=== PATIENT | male | born 1950 | race Caucasian/White ===

== ENCOUNTER 2020-04-26 11:45 | Outpatient (CLI) | payer OTHER, SELFPAY ==
--- NOTE | ~2020-04-26 | CT_ITS ---
EXAMINATION: CT lung screening DATE: 04/26/2020 11:59 INDICATION: Personal history of tobacco dependence, current smoker with 30 pack year history TECHNIQUE: Computed tomography (CT) of the chest was performed without intravenous contrast. The dose -length product (DLP) was 59.66 mGy-cm. Automated exposure control and iterative reconstruction techn [employer] were employed. COMPARISON: 04/22/2018 FINDINGS: The lungs are free of acute opacities. Calcified pulmonary nodules and calcified bilateral hilar and mediastinal lymph nodes are consistent with old granulomatous disease. There is moderate em physema. Stable scarring is noted in the right lower lobe. There are no suspicious pulmonary nodules. There is no pleural effusion or pneumothorax. Calcified coronary artery atherosclerosis is noted. No pathologically enlarged thoracic lymph nodes are identified. The heart size is normal. There is mode rate thoracic spondylosis. IMPRESSION: 1. Lung-RADS category 2: Benign appearance or behavior. Continue annual screening with noncontrast lo w-dose chest CT in 12 months. Reviewed, dictated and finalized at location A. IMPRESSION: 1. Lung-RADS category 2: Benign appearance or behavior. Continue annual screeni ng with noncontrast low-dose chest CT in 12 months.
== END 2020-04-26 11:46 ==
LOC: MICIMG 11:46
PROVIDERS: PCP Family Medicine; Visit Provider Family Medicine
DX: Z87.891 Personal history of nicotine dependence (principal)
CPT/HCPCS: G0297

== ENCOUNTER 2021-01-06 10:56 | Outpatient (CLI) | payer OTHER, SELFPAY | END 2021-01-06 10:57 | disposition home or self-care (01) | LOC: ANHCOVIDVC 10:56 | PROVIDERS: PCP Family Medicine | DX: Z23 Encounter for immunization (principal) | CPT/HCPCS: 0001A; 91300 ==

== ENCOUNTER 2021-01-27 11:01 | Outpatient (CLI) | payer OTHER, SELFPAY | END 2021-01-27 11:02 | disposition home or self-care (01) | LOC: ANHCOVIDVC 11:02 | PROVIDERS: PCP Family Medicine | DX: Z23 Encounter for immunization (principal) | CPT/HCPCS: 0002A; 91300 ==

== ENCOUNTER → 2021-08-22 11:34 | Outpatient (CLI) | payer MEDICARE, OTHER, SELFPAY ==
--- NOTE | ~2021-08-22 | CT_ITS ---
EXAMINATION: CT lung screening DATE: 08/22/2021 11:56 INDICATION: Personal history of nicotine dependence TECHNIQUE: Computed tomography (CT) of the chest was performed without intravenous contrast. The dose -length product was 115.64 mGy-cm. Automated exposure control and iterative reconstruction technique were employed. COMPARISON: CT dated 04/26/2020 FINDINGS: No thoracic lymphadenopathy. There is atherosclerosis of the aorta and coronary arteries. H eart size normal. No significant pleural or pericardial effusion. There are scattered calcified granu bety of the lung parenchyma. Severe emphysema. There is right lower lobe atelectasis/scarring no acu te osseous abnormality. Mild thoracic spondylosis with accentuated kyphosis. No new pulmonary nodules or masses. There are calcified granulomas of the spleen.. IMPRESSION: 1. Lung-RADS category 1: Negative. Continue annual screening with noncontrast low-dose chest CT in 12 months. Reviewed, dictated and finalized at location B. MAKER IMPRESSION: 1. Lung-RADS category 1: Negative. Continue annual screening with noncontrast l ow-dose chest CT in 12 months.
== END ==
PROVIDERS: PCP Family Medicine; Visit Provider Family Medicine
DX: Z12.2 Encounter for screening for malignant neoplasm of respiratory organs (principal); Z87.891 Personal history of nicotine dependence
CPT/HCPCS: 71271

== ENCOUNTER 2021-12-29 10:10 | Outpatient (CLI) | payer MEDICARE, OTHER, SELFPAY ==
--- NOTE | ~2021-12-29 | US_ITS ---
EXAMINATION: US carotid duplex BI DATE: 12/29/2021 11:06 INDICATION: Dizziness TECHNIQUE: Grayscale, color Doppler, and pulsed Doppler images of the cervical carotid arteries were obtained. The degree of vessel stenosis is placed in one of the following categories: normal, <50%, 5 0-69%, >=70% but less than near-occlusion, near-occlusion, or total occlusion. Note that percent sten osis relative to normal distal artery lumen diameter is indirectly measured from velocity measurement s as described by Irineo, et al. Radiology 2003; 229:340-346. Notes: Normal: Peak systolic velocity <125 centimeters/sec and no plaque <50%. Peak systolic velocity <125 ( EDV <40; ICA/CCA PSV ratio <2.0; used these factors only a tandem lesions or low cardiac output or co ntralateral disease) 50-69 %: PSV 125-230 (EDV 40-100; ratio 2-4) >= 70% but less than near occlusion: PSV greater than 230 (EDV > 100; ratio> 4.0) Near Occlusion: PSV that is variable; markedly narrowed lumen Occlusion: Absent flow on color/spectral Doppler and no lumen on root scale. COMPARISON: None. FINDINGS: RIGHT: The right common carotid artery (CCA) peak systolic velocity (PSV) is 74 cm/s. The right internal car otid artery (ICA) PSV is 66 cm/s. The right ICA end-diastolic velocity (EDV) is 26 cm/s. The right IC A/CCA PSV ratio is 0.9. The external carotid artery (ECA) PSV is 88 cm/s. There is antegrade flow in the right vertebral artery. LEFT: The left CCA PSV is 85 cm/s. The left ICA PSV is 81 cm/s. The left ICA EDV is 32 cm/s. The left ICA/C CA PSV ratio is 0.95. The ECA PSV is 75 cm/s. There is antegrade flow in the left vertebral artery. IMPRESSION: 1. Less than 50% stenosis in the right internal carotid artery by sonographic criteria. 2. Less than 50% stenosis in the left internal carotid artery by sonographic criteria. Reviewed, dictated and finalized at location A. IMPRESSION: 1. Less than 50% stenosis in the right internal carotid artery by sonographic nito cerrato. 2. Less than 50% stenosis in the left internal carotid artery by sonographic melly alas.
--- NOTE | ~2021-12-29 | CT_ITS ---
EXAMINATION: CT brain wo con EXAM DATE: 12/29/2021 10:35 INDICATION: R42 - Dizziness and giddiness TECHNIQUE: Spiral CT of the head was performed without contrast. Axial, coronal and sagittal images were reviewed. The dose-length product (DLP) for this examination was 681.00 mGy-cm. The exposure w as tailored according to patient size, and iterative reconstruction (ASIR) was used as additional dos e reduction technique. Comparison is made to prior examination from 08/16/2012. FINDINGS: There is no acute intraparenchymal hemorrhage. No evidence of intraparenchymal brain mass lesion. No evidence of acute infarction. Please note that initial head CT has limited sensitivity f or small or acute infarctions. There is moderate to severe periventricular and subcortical hypodensit y, nonspecific but probably related to small vessel ischemic disease. There is mild to moderate pro minence of the sulci and ventricles related to cerebral atrophy. There is intracranial carotid marco riosclerosis. There are no extra-axial collections. There is no mass effect or midline shift. The orbits are unremarkable. Soft tissue is unremarkable. Nearly completely opacified left maxillary si nus with mucoperiosteal thickening and air-fluid level. IMPRESSION: 1. No acute intracranial findings. 2. Chronic age related findings. Reviewed, dictated and finalized at location A.
== END 2021-12-29 10:11 | disposition home or self-care (01) ==
PROVIDERS: PCP Family Medicine; Visit Provider Family Medicine
DX: R42 Dizziness and giddiness (principal); I65.23 Occlusion and stenosis of bilateral carotid arteries
CPT/HCPCS: 70450; 93880

== ENCOUNTER → 2022-09-04 11:50 | Outpatient (CLI) | payer MEDICARE, OTHER, SELFPAY ==
--- NOTE | ~2022-09-04 | CT_ITS ---
EXAMINATION: CT lung screening DATE: 09/04/2022 12:04 INDICATION: Personal history of nicotine dependence, current smoker with 30 pack year history TECHNIQUE: Computed tomography (CT) of the chest was performed without intravenous contrast. The dose -length product (DLP) was 68.50 mGy-cm. Automated exposure control and iterative reconstruction techn [employer] were employed. COMPARISON: 08/22/2021 FINDINGS: There is moderate emphysema. Calcified pulmonary nodules and calcified bilateral hilar and mediastinal lymph nodes are consistent with old granulomatous disease. The lungs are free of acute op acities. There is mild chronic subsegmental atelectasis of the lingula and lower lobes. No pathologic ally enlarged thoracic lymph nodes are identified. The heart size is normal. Calcified coronary arter y atherosclerosis is noted. IMPRESSION: 1. Lung-RADS category 1: Negative. Continue annual screening with noncontrast low-dose chest CT in 12 months. Reviewed, dictated and finalized at location A. ACTORY REPAIRER IMPRESSION: 1. Lung-RADS category 1: Negative. Continue annual screening with noncontrast l ow-dose chest CT in 12 months.
== END ==
PROVIDERS: PCP Family Medicine; Visit Provider Physician Assistant
DX: Z12.2 Encounter for screening for malignant neoplasm of respiratory organs (principal); F17.210 Nicotine dependence, cigarettes, uncomplicated
CPT/HCPCS: 71271

== ENCOUNTER 2023-09-06 10:08 | Outpatient (CLI) | payer MEDICARE, OTHER, SELFPAY ==
--- NOTE | ~2023-09-06 | CT_ITS ---
CT Scan of the Chest without Contrast: Clinical Indication: Lung cancer screening, personal history of nicotine dependence Technique: Contiguous sections were acquired throughout the chest without intravenous contrast. Dose reduction technique was used on this scan by utilizing automated exposure control and iterative recon struction technique. The dose-length product (DLP) was 82.48 mGy-cm. COMPARISON: 09/04/2022 Findings: There is no evidence of any significant mediastinal, hilar or axillary lymphadenopathy. Calcified med iastinal lymph nodes are present. Atherosclerotic calcifications of the aorta and coronary arteries a re present. There is no evidence of pleural or pericardial effusion. There is moderate emphysema. There are calcified granulomas. Images through the upper abdomen reveal no abnormalities. Impression: Lung RADS 2: Benign appearance. 12 month follow-up screening CT advised. Moderate emphysema. Reviewed, dictated and finalized at [facility] [place]. [employer] Impression: Lung RADS 2: Benign appearance. 12 month follow-up screening CT advised. Moderate emphysema.
== END 2023-09-06 10:09 | disposition home or self-care (01) ==
PROVIDERS: PCP Family Medicine; Visit Provider Physician Assistant
DX: Z12.2 Encounter for screening for malignant neoplasm of respiratory organs (principal); F17.210 Nicotine dependence, cigarettes, uncomplicated; J43.9 Emphysema, unspecified
CPT/HCPCS: 71271

== ENCOUNTER 2023-09-16 20:25 | Emergency (ER) | payer MEDICARE, OTHER, SELFPAY ==
--- NOTE | ~2023-09-16 | CT_ITS ---
EXAMINATION: CT facial & cervical spine wo DATE: 09/16/2023 21:29 INDICATION: Head injury. TECHNIQUE: Computed tomography (CT) of the maxillofacial region and cervical spine was performed with out intravenous contrast. The dose-length product was 681.00 mGy-cm. Automated exposure control and i terative reconstruction technique were employed. COMPARISON: None FINDINGS: MAXILLOFACIAL CT: No acute facial fracture. Moderate left frontal scalp hematoma. Mucosal thickening of the left maxill mary ann sinus with extension to the ethmoid sinuses. There is mucoperiosteal reaction of the left maxilla ry sinus, consistent with chronic sinusitis. There is intracranial atherosclerosis. Mandible intact. Temporomandibular joints are symmetric. CERVICAL SPINE CT: Mild superior endplate compression deformity of C7 and wedge deformity of T1 which appear chronic. Cr aniovertebral junction is normal. Odontoid process is normal. No evidence for perched facet. There is moderate multilevel uncinate and facet hypertrophy. There is emphysema of the lung apices. IMPRESSION: 1. No acute abnormality of the facial bones or cervical spine. Reviewed, dictated and finalized at location A. CULTURAL REAL ESTATE AGENT
--- NOTE | ~2023-09-16 | XR_ITS ---
XR hand LT min 3V DATE: 09/16/2023 23:03 INDICATION: Fall. 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 No fracture or dislocation, periosteal reaction or bone destruction. Arterial calcifications are noted in the distal forearm and wrist area. IMPRESSION: Status post distal phalangeal amputation of second digit No recent fracture or dislocation Arterial calcifications Reviewed, dictated and finalized at location A. ENTARY PRINCIPAL
--- NOTE | ~2023-09-16 | XR_ITS ---
XR pelvis 1-2V DATE: 09/16/2023 23:03 INDICATION: Fall. Pelvic pain. TECHNIQUE: AP pelvic view COMPARISON: None FINDINGS: Lumbar degenerative disc disease. The pubic symphysis and sacroiliac joints are intact. No pelvic fracture is detected. No fracture or dislocation is noted in either hip. Prostate calcification. Arterial calcifications. IMPRESSION: No pelvic fracture is detected Reviewed, dictated and finalized at location A. OL TEACHER
--- NOTE | ~2023-09-16 | XR_ITS ---
XR chest 1V DATE: 09/16/2023 23:04 INDICATION: Fall. TECHNIQUE: AP chest COMPARISON: 09/06/2023 CT lung screening FINDINGS: Normal heart size. Is aortic calcification and unfolding. There is evidence of old pulmonar y granulomatous disease including calcified pulmonary granulomas, calcified hilar nodes. No hilar or mediastinal enlargement. No pulmonary infiltrate or consolidation. Some bullous change is associated with COPD is noted. No pleural effusion or pulmonary vascular congestion or pneumothorax. There is osteopenia. Included skeletal structures are otherwise unremarkable. IMPRESSION: COPD Aortic atherosclerosis No active cardiopulmonary disease Reviewed, dictated and finalized at location A. GER IT TRAINING
--- NOTE | ~2023-09-16 | CT_ITS ---
EXAMINATION: CT brain wo con DATE: 09/16/2023 21:29 INDICATION: Head injury. TECHNIQUE: Computed tomography (CT) of the head was performed without intravenous contrast. The dose- length product was 414.28 mGy-cm. Automated exposure control and iterative reconstruction technique w ere employed. COMPARISON: CT dated 12/29/2021 FINDINGS: Left frontal scalp hematoma. There is intracranial atherosclerosis. There are scattered sev ere periventricular and subcortical white matter changes, most likely related to small vessel ischemi c disease (microangiopathy). No ventriculomegaly or midline shift. There is generalized atrophy. Ther e is mucosal thickening of the left maxillary sinus which appears chronic. Mucosal thickening extends into the ethmoid sinus. Mastoids are pneumatized. No depressed skull fracture. IMPRESSION: 1. No acute intracranial abnormality. 2: Left frontal scalp hematoma. 3: Chronic age-related findings. Reviewed, dictated and finalized at location A. [employer]
[2023-09-16 20:32] VITALS: BP 135/81; PULSE 94; RESP 19; TEMP 36.7; O2SAT 94
[2023-09-16 21:15] VITALS: O2SAT 96
[2023-09-16 21:16] VITALS: BP 133/92; O2SAT 96
[2023-09-16 21:36] VITALS: O2SAT 97
[2023-09-16 21:45] VITALS: O2SAT 96
[2023-09-16 22:00] VITALS: O2SAT 97
--- NOTE | 2023-09-16 22:46 | ECG_ITS ---
Measurements Intervals [place] Rate: 74 P: 63 CA: 182 QRS: -75 QRSD: 113 T: 63 QT: 371 QTc: 413 Interpretive Statements SINUS RHYTHM MARKED LEFT AXIS DEVIATION [QRS AXIS < -30] INCOMPLETE RIGHT BUNDLE BRANCH BLOCK [90+ ms QRS DURATION, TERMINAL R IN V1/V2, 40+ ms S IN I/aVL/V4/V5/V6] POOR R-WAVE PROGRESSION, CANNOT RULE OUT OLD aNTERIOR MYOCARDIAL INFARCTION NO PREVIOUS ECG AVAILABLE FOR COMPARISON Electronically Signed On 09-17-2023 13:49:01 PRODUCT EXAMINER by Susi Mclain M.D.
[2023-09-16 23:31] LABS: Basophils Absolute Auto 0.1 K/mm3 (0.0-0.1); Basophils Percent Auto 0.7 % (0.2-1.2); Eosinophils Absolute Auto 0.1 K/mm3 (0-0.3); Eosinophils Percent Auto 1.2 % (0-4.4); Hematocrit 46.8 % (42.0-52.0); Hemoglobin 15.8 g/dL (14.0-18.0); Immature Granulocyte Absolute 0.02 K/mm3 (0.00-0.031); Immature Granulocyte Percent A 0.2 % (0-0.5); Lymphocytes Percent Auto 18.5 % (18.3-44.2); Mean Corpuscular HGB Conc 33.8 g/dl (32-36); Mean Corpuscular Hemoglobin 31.3 pg (26-34); Mean Corpuscular Volume 92.9 fl (80-100); Mean Platelet Volume 9.2 fl (7.4-10.4); Monocytes Absolute Auto 0.8 K/mm3 (0.1-0.6); Monocytes Percent Auto 10.1 % (2.6-8.5); Neutrophils Absolute Auto 5.6 K/mm3 (1.3-6.7); Neutrophils Percent Auto 69.3 % (45.5-73.1); Platelet Count Result 170 k/mm3 (150-375); Red Blood Count 5.04 M/mm3 (4.6-6.20); Red Cell Distribution Width 14.6 % (11.5-14.5); White Blood Count 8.1 K/mm3 (4.5-10.0)
[2023-09-16] MEDS: TETANUS,DIPHTHERIA,AC PERTUSSIS ADULT (0.5 ML) BOOSTRIX IM (23:31)
[2023-09-16 23:42] LABS: Alanine Aminotransferase 20 U/L (6-50); Albumin Level 3.9 g/dL (3.5-5.1); Alkaline Phosphatase 76 U/L (38-126); Anion Gap 6 mmol/L (8-16); Aspartate Amino Transferase 26 U/L (17-59); Bilirubin,Total 0.7 mg/dL (0.2-1.3); Blood Urea Nitrogen 15 mg/dL (9-20); Calcium 8.6 mg/dL (8.4-10.2); Carbon Dioxide 25 mmol/L (22-30); Chloride 106 mmol/L (98-107); Estimated CRCL calculation 9 ml/min; Estimated Glomerular Filt Rate > 60; Glucose 109 mg/dL (65-110); Potassium 3.6 mmol/L (3.4-5.0); Sodium 137 mmol/L (137-145)
--- NOTE | 2023-09-16 23:51 | ED.FALL ---
HPI - Fall General Chief Complaint: Fall Stated Complaint: hit head Time Seen by Provider: 09/16/23 21:47 Source: patient and family Mode of arrival: wheelchair Limitations: other (poor historian) History of Present Illness HPI Narrative: This is a 72-year-old male who presents to the emergency department after a ground level fall the day. Reports he was bending forward in the garage and accidentally lost his balance and fell forward. Reports hitting his head. He does not believe he lost consciousness. Reports a hematoma and laceration to the forehead. He is unsure of his last tetanus vaccination. Also reports left hand pain. No other injuries or focal areas of pain. His family reports he has been getting more confused over the last several months and has had some falls recently. Denies vision changes, vomiting, numbness, weakness. Related Data Allergies Allergy/AdvReac Type Severity Reaction Status Date / Time Penicillins Allergy Unknown Rash Verified 09/16/23 20:37 Review of Systems Review of Systems: CONSTITUTIONAL: Denies fever EYES: Reports redness. Denies visual changes CARDIOVASCULAR: Denies chest pain, edema. RESPIRATORY: Denies dyspnea. GASTROINTESTINAL: Denies vomiting MUSCULOSKELETAL: Denies back pain NEUROLOGIC: Denies numbness, or weakness. All systems reviewed & are unremarkable except as noted in HPI and below PMFSH Past Medical History Medical History (Updated 09/17/23 @ 01:54 by Rosalee Leonard PA-C) Dizziness Hypothyroidism Type 2 diabetes mellitus without complications Surgical History Surgical History H/O cataract extraction Family History Family History Father Family history of lung cancer Family history of congestive heart failure Social History Social History Smoking packs per day: 1 Smoking cigarettes per day: 20.0 Years smoked: 20 Smoking pack-years: 20.00 Smoking status: Current every day smoker Tobacco type: cigarettes Second hand tobacco smoke exposure: No Alcohol intake: never Substance use: never Substance use type: does not use Lack of Transportation: No Lack of Food: Never True Current Housing: I Have Housing Concerned About Future Housing: No Difficulty Paying Gas/Electric Bills: No Difficulty Paying for Meds: No Currently Unemployed: No Education: Trade/Vocational Certificate Difficulty w/ Childcare or Family Care: No Living arrangements: with family Occupation/Education: retired Gender identity (if verbalized by the patient): Male Exam Narrative: GENERAL: Elderly, well-nourished, and in no acute distress. HEAD: Normocephalic. Left frontal scalp hematoma with 0.5cm linear superficial laceration centrally EYES: PERRLA and EOMI. Left subconjunctival hemorrhage. Visual acuity 20/40 bilaterally ENT: Nares clear, no rhinorrhea or epistaxis. Mucous membranes moist. Oropharynx without tonsillar hypertrophy exudate or other lesions. Bilateral TMs pearly root non-bulging NECK: Supple. No adenopathy or masses. No midline spinal tenderness CHEST: Clear to auscultation. No respiratory distress. No wheezes rales or rhonchi HEART: Regular rate and rhythm. No murmur heard. Normal peripheral pulses. BACK: No midline spinal tenderness EXTREMITIES: Normal range of motion. No edema or obvious deformity. SKIN: Warm, dry, no rash. NEURO: No focal deficits. Alert and oriented x3. CN II-XII grossly intact PSYCH: Normal mood and affect Course Course Emergency Course: Patient and family updated on workup and agree with plan of care Vital Signs Vital signs: Vital Signs Temperature 98.0 F 09/16/23 20:32 Pulse Rate 94 09/16/23 20:32 Respiratory Rate 19 09/16/23 20:32 Blood Pressure 135/81 09/16/23 20:32 Pulse Oximetry 94 09/16/23 20:32
[2023-09-17] VITALS: BP 134/69; PULSE 74; RESP 14; O2SAT 100
== END 2023-09-17 02:00 | disposition home or self-care (01) ==
PROVIDERS: Emergency Provider Physician Assistant; PCP Family Medicine
DX: S01.81XA Laceration without foreign body of other part of head, initial encounter (principal); Z23 Encounter for immunization; E03.9 Hypothyroidism, unspecified; E11.9 Type 2 diabetes mellitus without complications; Z98.49 Cataract extraction status, unspecified eye; F17.210 Nicotine dependence, cigarettes, uncomplicated; I45.10 Unspecified right bundle-branch block; J44.9 Chronic obstructive pulmonary disease, unspecified; Z89.022 Acquired absence of left finger(s)
CPT/HCPCS: 12011; 36415; 70450; 70486; 71045; 72125; 72170; 73130; 80053; 84443; 85025; 90471; 90715; 93005; 99284; L0140

== ENCOUNTER 2023-09-20 12:35 | Outpatient (CLI) | payer MEDICARE, OTHER, SELFPAY ==
--- NOTE | ~2023-09-20 | CT_ITS ---
EXAMINATION: CT brain wo con DATE: 09/20/2023 13:01 INDICATION: Head injury. Unspecified fall, initial encounter. TECHNIQUE: Computed tomography (CT) of the head was performed without intravenous contrast. The mA wa s adjusted according to patient size. Iterative reconstruction technique was employed. The dose-lengt h product was 681.00 mGy-cm. COMPARISON: Head CT 09/16/2023 FINDINGS: There are scattered areas of low attenuation in the cerebral white matter. There is no intr acranial hemorrhage, acute infarction, or abnormal intracranial mass lesion. There is left frontal sc alp soft tissue swelling. There are likely changes of ocular lens replacement surgeries. There is muc osal thickening in the paranasal sinuses. There is thickening and sclerosis of the gr of left maxi llary sinus, consistent with chronic sinusitis. The mastoid air cells are normal. There is cerumen in left external auditory canal. IMPRESSION: 1. Stable extensive nonspecific cerebral white matter disease, which likely represents chronic small vessel ischemic disease. Reviewed, dictated and finalized at location A. K LETTERER IMPRESSION: 1. Stable extensive nonspecific cerebral white matter disease, which likely rep resents chronic small vessel ischemic disease.
[2023-09-20 14:15] LABS: Appearance Urine Clear (Clear); Bacteria Urine None Seen /hpf; Bilirubin Urine Negative (Negative); Blood Urine Trace (Negative); Color Urine Yellow (Yellow); Glucose Urine UA 1+ mg/dL (Negative); Ketones Urine Negative (Negative); Leukocyte Esterase Ur 1+ LEU/UL (Negative); Nitrate Urine Negative (Negative); Non Pathogenic Casts 0-2; Protein Urine Negative (Negative); Specific Grav Ur 1.024 (1.001-1.035); Squamous Epithelial Cell Urine None seen /hpf (Few); pH Urine 5.5 (5.0-9.0)
[2023-09-20 14:17] LABS: Add Urine Microscopic? YES
[2023-09-20 14:24] LABS: Hemoglobin A1C 6.1 % (<5.7)
[2023-09-20 14:29] LABS: Alanine Aminotransferase 23 U/L (6-50); Albumin Level 4.4 g/dL (3.5-5.1); Alkaline Phosphatase 80 U/L (38-126); Anion Gap 8 mmol/L (8-16); Aspartate Amino Transferase 30 U/L (17-59); Bilirubin,Total 0.7 mg/dL (0.2-1.3); Blood Urea Nitrogen 16 mg/dL (9-20); Calcium 8.7 mg/dL (8.4-10.2); Carbon Dioxide 26 mmol/L (22-30); Chloride 102 mmol/L (98-107); Estimated Glomerular Filt Rate > 60; Glucose 92 mg/dL (65-110); Potassium 4.1 mmol/L (3.4-5.0); Sodium 136 mmol/L (137-145)
== END 2023-09-20 12:36 | disposition home or self-care (01) ==
PROVIDERS: PCP Family Medicine; Visit Provider Physician Assistant Medical
DX: R41.0 Disorientation, unspecified (principal); E11.9 Type 2 diabetes mellitus without complications; E03.9 Hypothyroidism, unspecified; E78.5 Hyperlipidemia, unspecified; R90.82 White matter disease, unspecified
CPT/HCPCS: 36415; 70450; 80053; 81001; 83036; 84443; 87086

== ENCOUNTER 2023-11-15 10:33 | Outpatient (CLI) | payer MEDICARE, OTHER, SELFPAY ==
--- NOTE | ~2023-11-15 | MR_ITS ---
MRI of the brain Clinical History: Cognitive decline Technique: Axial and sagittal T1-weighted images were acquired. These were followed by axial T2-weigh donny, diffusion weighted, gradient, and FLAIR images. Findings: There is a focal area of restricted diffusion in the right frontal periventricular white ma tter, consistent with a focal acute infarct (axial diffusion image 15-16). There are numerous scatter ed foci of low signal on gradient images, compatible multiple prior microhemorrhages. There is diffus e chronic appearing white matter disease on FLAIR images. Ventricles and subarachnoid spaces are mildly dilated. Orbits are unremarkable. There is left maxilla ry sinus disease. Remaining paranasal sinuses are clear. Sagittal midline structures are intact. IMPRESSION: Focal acute infarct in the right frontal periventricular white matter. Amyloid angiopathy, with diffuse white matter disease and evidence of numerous scattered prior microh emorrhages. Reviewed, dictated and finalized at [facility]. MATION MANAGER IMPRESSION: Focal acute infarct in the right frontal periventricular white matter. Amyloid angiopathy, with diffuse white matter disease and evidence of numerous scattered prior microhemorrhages.
== END 2023-11-15 10:34 | disposition home or self-care (01) ==
PROVIDERS: PCP Family Medicine; Visit Provider Student in an Organized Health Care Education/Training Program
DX: F02.80 Dementia in other diseases classified elsewhere, unspecified severity, without behavioral disturbance, psychotic disturbance, mood disturbance, and anxiety (principal); G30.9 Alzheimer's disease, unspecified
CPT/HCPCS: 70551

== ENCOUNTER 2023-11-22 08:30 | Emergency (ER) | payer MEDICARE, OTHER, SELFPAY ==
--- NOTE | ~2023-11-22 | CT_ITS ---
EXAMINATION: CT hip LT wo con DATE: 11/22/2023 11:26 INDICATION: Left hip fracture post fall TECHNIQUE: High resolution computed tomography (CT) of the left hip was performed without intravenous contrast. Additional sagittal and coronal reconstructions were performed. The dose-length product wa s 524.06 mGy-cm. COMPARISON: Radiographs dated 11/22/2023 FINDINGS: There is a nondisplaced mildly comminuted fracture at the proximal left femur which includes a primar y fracture plane extending across the basicervical portion of the femur as well as additional seconda ry nondisplaced fracture lines involving the cephalad tip of the greater trochanter. No evident fract ure of the visualized left hemipelvis. Mild osteoarthritis at the left hip without joint effusion. Th e basicervical fracture plane extends to the cephalad margin of the lesser trochanter from are small hematoma tracks cephalad along the left iliopsoas tendon and muscle. Prostatic calcifications. Athero sclerotic calcification along the left iliac and femoral arteries. IMPRESSION: 1. Nondisplaced comminuted basicervical fracture of the proximal femur with additional fracture plane s extending at the tip of the greater trochanter. Reviewed, dictated and finalized at location L. PRESIDENT RESEARCH IMPRESSION: 1. Nondisplaced comminuted basicervical fracture of the proximal femur with add itional fracture planes extending at the tip of the greater trochanter.
--- NOTE | ~2023-11-22 | XR_ITS ---
AP view of the pelvis and AP and lateral views of the left hip Clinical history: Pain Findings: There is a fracture involving the greater tuberosity of the proximal left femur, with is a linear nondisplaced extension through the intertrochanteric region.. Bilateral hip and SI joint space s are preserved. Soft tissues are unremarkable. Impression: Suspected nondisplaced intertrochanteric fracture of the proximal left femur versus fracture isolated to the greater trochanter. Consider CT or MR to better evaluate fracture anatomy, as fracture anatom y could dictate treatment. Reviewed, dictated and finalized at location M. L FABRICATING SUPERVISOR Impression: Suspected nondisplaced intertrochanteric fracture of the proximal left femur ve rsus fracture isolated to the greater trochanter. Consider CT or MR to better e valuate fracture anatomy, as fracture anatomy could dictate treatment.
--- NOTE | ~2023-11-22 | CT_ITS ---
EXAMINATION: CT lumbar spine wo con DATE: 11/22/2023 10:04 INDICATION: Fall. Left hip pain. Bowel incontinence. TECHNIQUE: Computed tomography (CT) of the lumbar spine was performed without intravenous contrast. A utomated exposure control and iterative reconstruction technique were employed. The dose-length produ ct was 675.92 mGy-cm. COMPARISON: None FINDINGS: A calcified right lung nodule is consistent with old granulomatous disease. Partially visua lized are cysts in right kidney measuring up to at least 3.5 cm . The bladder is markedly distended. There is 4 degrees levocurvature of lumbar spine. There is mild chronic anterior wedging of T12, L1, L3, and L4 vertebral bodies. There is mildly decreased disc height at L2-L3, moderately decreased dis c height at L3-L4, mildly decreased disc height at L4-L5, and severely decreased disc height at L5-S1 . The following disc levels are specifically discussed: L1-L2: The disc does not extend beyond the endplate margin. There is moderate bilateral facet joint o steoarthritis. There is no neural foraminal stenosis. There is no central canal stenosis. L2-L3: The disc is bulging. There is mild bilateral facet joint osteoarthritis. There is mild right a nd moderate left neural foraminal stenosis. There is mild central canal stenosis. L3-L4: The disc is bulging. There is severe right and mild left facet joint osteoarthritis. There is mild bilateral neural foraminal stenosis. There is mild central canal stenosis. L4-L5: The disc is bulging. There is severe bilateral facet joint osteoarthritis. There is mild bilat eral neural foraminal stenosis. There is mild central canal stenosis. L5-S1: The disc is bulging. There is severe bilateral facet joint osteoarthritis. There is moderate b ilateral neural foraminal stenosis. There is mild central canal stenosis. IMPRESSION: 1. Severe lower lumbar spondylosis. Reviewed, dictated and finalized at location A. CONTROL CHEMICAL TECHNICIAN
[2023-11-22 08:29] VITALS: BP 137/89; PULSE 99; RESP 17; TEMP 37.1; O2SAT 96
--- NOTE | 2023-11-22 09:43 | ED.FALL ---
HPI - Fall General Chief Complaint: Fall <JUDITH Zurita Last Filed: 11/22/23 14:26> Stated Complaint: L hip injury <JUDITH Zurita Last Filed: 11/22/23 14:26> Time Seen by Provider: 11/22/23 09:06 <JUDITH Zurita Last Filed: 11/22/23 14:26> History of Present Illness HPI Narrative: 73-year-old male reports via EMS from home after a fall that occurred this morning at 2:30 a.m.. Patient lives at home with his . States he got out of bed to go to the bathroom, was attempting to get back into bed and fell. States he landed on his right shoulder and right hip. He denies hitting his head or losing consciousness. He denies neck pain or back pain. he is not anticoagulated. Patient is A&O x3 upon arrival. patient did have an episode of incontinence stool after the fall. Denies history of this. His is present at bedside who confirms the history. <JUDITH Zurita Last Filed: 11/22/23 14:26> Related Data Home Medications: Home Medications Medication Instructions Recorded Confirmed selenium 200 mcg tablet 200 mcg PO DAILY 10/11/23 <JUDITH Zurita Last Filed: 11/22/23 14:26> Allergies/Adverse Reactions: Allergies Allergy/AdvReac Type Severity Reaction Status Date / Time Penicillins Allergy Unknown Rash Verified 11/22/23 08:43 <JUDITH Zurita Last Filed: 11/22/23 14:26> Review of Systems Review of Systems: CONSTITUTIONAL: Denies fever, chills, or sweats. EYES: Denies visual changes, redness, or discharge. ENT: Denies rhinorrhea, congestion, sore throat, or otalgia. CARDIOVASCULAR: Denies chest pain, palpitations, or edema. RESPIRATORY: Denies cough or dyspnea. GASTROINTESTINAL: Denies abdominal pain, nausea, vomiting, or diarrhea. GENITOURINARY: Denies dysuria or hematuria. SKIN: Denies rash or itching. MUSCULOSKELETAL: See HPI NEUROLOGIC: Denies headache, numbness, or weakness. PSYCHIATRIC: Denies anxiety or depression. <Ambika Prieto PA-C - Last Filed: 11/22/23 14:26> PMFSH Past Medical History Medical History: Medical History Dizziness Hypothyroidism Status post CVA Type 2 diabetes mellitus without complications <Ambika Prieto PA-C - Last Filed: 11/22/23 14:26> Surgical History Surgical History: Surgical History H/O cataract extraction <Ambika Prieto PA-C - Last Filed: 11/22/23 14:26> Family History Family History: Family History Father Family history of lung cancer Family history of congestive heart failure <Ambika Prieto PA-C - Last Filed: 11/22/23 14:26> Social History Social History: Social History Years smoked: 20 Smoking status: Current every day smoker Tobacco type: cigarettes Second hand tobacco smoke exposure: No Alcohol intake: never Substance use: never Substance use type: does not use Do You Feel Safe in your Home?: Yes Lack of Transportation: No Lack of Food: Never True Current Housing: I Have Housing Concerned About Future Housing: No Difficulty Paying Gas/Electric Bills: No Difficulty Paying for Meds: No Currently Unemployed: No Education: Trade/Vocational Certificate Difficulty w/ Childcare or Family Care: No Living arrangements: with family Occupation/Education: retired Gender identity (if verbalized by the patient): Male <Ambika Prieto PA-C - Last Filed: 11/22/23 14:26> Exam Narrative: GENERAL: Well-appearing, well-nourished, and in no acute distress. HEAD: Normocephalic, atraumatic. EYES: PERRLA and EOMI. ENT: Nares clear, no rhinorrhea or epistaxis. Mucous membranes moist. NECK: no midline cervical spinous tenderness, step-offs or deform
[2023-11-22] MEDS: HYDROcodone/acetaminophen (*CRX) 5-325 MG TABLET 1 TAB PO (10:06)
[2023-11-22 10:08] VITALS: BP 150/87; PULSE 111; RESP 17; O2SAT 97
[2023-11-22 11:08] VITALS: BP 147/97; PULSE 103; RESP 18; O2SAT 97
--- NOTE | 2023-11-22 11:16 | PC.NURSE ---
Report given to Valerie TALLEY, all questions answered
[2023-11-22 12:03] VITALS: BP 124/77; PULSE 95; RESP 19; O2SAT 96
[2023-11-22 12:14] LABS: Basophils Percent Auto 0.3 % (0.2-1.2); Eosinophils Percent Auto 0.1 % (0-4.4); Hematocrit 48.5 % (42.0-52.0); Hemoglobin 16.5 g/dL (14.0-18.0); Immature Granulocyte Absolute 0.04 K/mm3 (0.00-0.031); Immature Granulocyte Percent A 0.3 % (0-0.5); Lymphocytes Absolute Auto 0.73 K/mm3 (0.9-3.2); Lymphocytes Percent Auto 6.4 % (18.3-44.2); Mean Corpuscular Hemoglobin 31.4 pg (26-34); Mean Corpuscular Volume 92.4 fl (80-100); Mean Platelet Volume 9.5 fl (7.4-10.4); Monocytes Percent Auto 8.6 % (2.6-8.5); Neutrophils Absolute Auto 9.7 K/mm3 (1.3-6.7); Neutrophils Percent Auto 84.3 % (45.5-73.1); Platelet Count Result 151 k/mm3 (150-375); Red Blood Count 5.25 M/mm3 (4.6-6.20); Red Cell Distribution Width 14.1 % (11.5-14.5); White Blood Count 11.5 K/mm3 (4.5-10.0)
[2023-11-22 12:33] LABS: Alanine Aminotransferase 26 U/L (6-50); Alkaline Phosphatase 71 U/L (38-126); Anion Gap 6 mmol/L (8-16); Aspartate Amino Transferase 42 U/L (17-59); Blood Urea Nitrogen 16 mg/dL (9-20); Calcium 8.7 mg/dL (8.4-10.2); Carbon Dioxide 24 mmol/L (22-30); Chloride 105 mmol/L (98-107); Estimated CRCL calculation 72 ml/min; Estimated Glomerular Filt Rate > 60; Glucose 143 mg/dL (65-110); Potassium 4.1 mmol/L (3.4-5.0); Sodium 135 mmol/L (137-145)
[2023-11-22 13:48] VITALS: BP 124/77; PULSE 89; RESP 18; O2SAT 98
[2023-11-22 14:15] LABS: Appearance Urine Cloudy (Clear); Bacteria Urine None Seen /hpf; Bilirubin Urine Negative (Negative); Blood Urine 2+ (Negative); Color Urine Yellow (Yellow); Glucose Urine UA Negative (Negative); Ketones Urine Negative (Negative); Leukocyte Esterase Ur Negative LEU/UL (Negative); Nitrate Urine Negative (Negative); Non Pathogenic Casts 0-2; Protein Urine Negative (Negative); RBC Urine 21-50 /hpf (0-2); Specific Grav Ur 1.018 (1.001-1.035); Squamous Epithelial Cell Urine None seen /hpf (Few); Urobilinogen Urine 0.2 mg/dL (<2.0); WBC Urine 0-5 /hpf; pH Urine 5.5 (5.0-9.0)
[2023-11-22] MEDS: MORPHINE SULFATE (*CRX) 4 MG/ML INJ IV PUSH (14:27)
[2023-11-22 14:33] LABS: Add Urine Microscopic? YES
[2023-11-22 14:54] VITALS: BP 130/75; PULSE 87; RESP 18; O2SAT 99
== END 2023-11-22 14:55 | disposition short-term general hospital (02) ==
PROVIDERS: Emergency Provider Physician Assistant; PCP Family Medicine
DX: S72.045A Nondisplaced fracture of base of neck of left femur, initial encounter for closed fracture (principal); R33.9 Retention of urine, unspecified; R15.9 Full incontinence of feces; E11.9 Type 2 diabetes mellitus without complications; E03.9 Hypothyroidism, unspecified; F17.210 Nicotine dependence, cigarettes, uncomplicated; Z98.49 Cataract extraction status, unspecified eye; W06.XXXA Fall from bed, initial encounter
CPT/HCPCS: 36415; 72131; 73502; 73700; 80053; 81001; 85025; 96374; 99285; A9270; J2270

== ENCOUNTER 2024-05-07 14:20 | Outpatient (CLI) | payer MEDICARE, OTHER, SELFPAY ==
--- NOTE | ~2024-05-07 | XR_ITS ---
EXAMINATION: XR chest 2V 05/07/2024 14:51 INDICATION: Cough PROCEDURE: 2 view chest COMPARISON: 09/16/2023 FINDINGS: The lungs are clear. The cardiomediastinal silhouette is within normal limits. There are no pleural effusions. There is no pneumothorax suspected. There are calcified granulomas in both lester ngs. The lungs are hyperinflated which is consistent with, but not diagnostic of chronic obstructive pulmonary disease. IMPRESSION: 1: NO ACUTE CARDIOPULMONARY DISEASE. Reviewed, dictated and finalized at location B.
== END 2024-05-07 14:21 | disposition home or self-care (01) ==
PROVIDERS: PCP Family Medicine; Visit Provider Family Medicine
DX: R05.9 Cough, unspecified (principal)
CPT/HCPCS: 71046

== ENCOUNTER 2024-05-21 14:31 | Outpatient (CLI) | payer MEDICARE, OTHER, SELFPAY ==
--- NOTE | ~2024-05-21 | XR_ITS ---
EXAMINATION: XR chest 2V DATE: 05/21/2024 15:01 INDICATION: Cough, unspecified. TECHNIQUE: Frontal and lateral views of the chest were obtained. COMPARISON: Chest 2 views 05/07/2024 FINDINGS: Calcified pulmonary nodules and calcified hilar and mediastinal lymph nodes are consistent with old granulomatous disease. There is mild scarring at right lung apex. No pleural effusion or pne umothorax. The heart size is normal. IMPRESSION: 1. Mild scarring at right lung apex. Reviewed, dictated and finalized at location A.
== END 2024-05-21 14:32 | disposition home or self-care (01) ==
PROVIDERS: PCP Family Medicine; Visit Provider Family Medicine
DX: J98.4 Other disorders of lung (principal); R05.9 Cough, unspecified
CPT/HCPCS: 71046

== ENCOUNTER 2024-06-02 13:44 | Outpatient (CLI) | payer MEDICARE, OTHER, SELFPAY ==
--- NOTE | ~2024-06-02 | XR_ITS ---
EXAMINATION: XR barium swallow modified DATE: 06/02/2024 14:13 INDICATION: Dysphagia, specified. TECHNIQUE: The patient was given barium-containing material of multiple consistencies to swallow by t davina speech pathologist while I performed fluoroscopy. Fluoroscopy exposure time was 0.8 minutes. The n umber of fluoroscopy images saved to the PACS was 1. Dose-area product was 0.639 Gy-cm^2. FINDINGS: The oral stage, pharyngeal stage, and cervical/esophageal stage of the swallow are normal. IMPRESSION: 1. Normal modified barium swallow. 2. Please refer to the speech therapy report for recommendations. Reviewed, dictated and finalized at location A.
--- NOTE | 2024-06-02 15:33 | REHSTMBS ---
Assessment and note entered by Shanika Freire, ARCH CUSHION SKIVING MACHINE OPERATOR Modified Barium Swallow Evaluation Feeding Type Recommended Oral Food Consistency Regular, Level 7 Liquid Consistency Thin (0) ST Clinical Summary MODIFIED BARIUM SWALLOW STUDY This patient was seen for a Modified Barium Swallow study at the [facility] of his physician. Patient reported that sometimes he becomes choked (unable to recall exactly what foods/liquids contribute to the choking) and this his beats him which clears anything lodged and he carries on. He stated that his cuts up his food into tiny pieces and he feels he does okay with that. Patient was viewed in the lateral position to the level of C5/C6. Patient was presented with thin liquid contrast medium per straw, pudding mixed with semi-solid contrast medium and then medium size portions of thu cracker and fruit cocktail, both coated in the pudding mixture. He elicited quick swallows with no evidence of penetration or aspiration. Testing was terminated. Results suggest this patient's swallowing skills are grossly within normal limits. It was reinforced that small bites and sips were appropriate, and to chew thoroughly and eat slowly. He voiced good understanding of recommendations. No further Speech Therapy is indicated at this time. Thank you for this referral.
== END 2024-06-02 13:45 | disposition home or self-care (01) ==
PROVIDERS: PCP Family Medicine; Visit Provider Family Medicine
DX: R13.10 Dysphagia, unspecified (principal)
CPT/HCPCS: 92611

== ENCOUNTER 2024-07-18 17:43 | Inpatient (IN) | payer MEDICARE, OTHER, SELFPAY ==
--- NOTE | ~2024-07-18 | CT_ITS ---
CT cervical spine wo con Ordering provider: Rosalee Leonard PA-C History: . fall head injury . Comparison: None. Technique: CT of the cervical spine was performed without contrast. Sagittal and coronal reformatted images were also obtained and reviewed. Automated exposure control and iterative reconstruction nitesh hnique were employed. The dose-length product was 367.25 mGy-cm. FINDINGS: VERTEBRAE: No subluxation or acute fracture. The occipital condyles are intact. Minimal anterolisthe sis at the level of C5-C6. fusion at the level of C3, C4 and C5 is seen on the right at the level of facet joints. DISC SPACES: Narrowing of the disc C3-C4, and C4-C5. Multilevel facet joint disease. Narrowing of the left foramina at the level of C2-C3. Bilateral narrowing of the foramina at the level of C3-C4. Narr owing of the right foramen at the level of C4-C5. Bilateral narrowing of the foramina at the level of C5-C6. Small bony fragment seen between the facet joint disease of C2 and C3 on the left side most likely ch ronic. PARASPINOUS SOFT TISSUES: Bilateral carotid atherosclerotic changes. Emphysematous changes of the shawn gs. IMPRESSION: No acute osseous abnormality cervical spine. Reviewed, dictated and finalized at location A.
--- NOTE | ~2024-07-18 | MR_ITS ---
EXAMINATION: MR thoracic spine wo con DATE: 07/19/2024 10:07 INDICATION: Back pain. Fracture. TECHNIQUE: Magnetic resonance imaging (MRI) of the thoracic spine was performed without intravenous c ontrast. Sagittal localizer T1-weighted FSE of the cervical spine was obtained. Thoracic spine sequen soraya included sagittal T2-weighted FSE, sagittal T1-weighted FSE, sagittal T2-weighted FS FSE, and axi al T2-weighted FSE. COMPARISON: Chest CT 07/18/2024 FINDINGS: There is thoracic kyphosis. There is mild chronic anterior wedging of T4-T11 vertebral bodi es. There is a compression fracture of T12 with 1/5 loss of height and edema-like marrow signal inten sity. There is mildly decreased disc height from T5-T6 through T10-T11. At T10-T11, there is a centra l extrusion with mild central canal stenosis. There is multilevel mild to moderate facet joint osteoa rthritis. There is mild neural foraminal stenosis on the right at T1-T2 and on the left at T1-T2, T2- T3, and T3-T4. The spinal cord signal intensity is normal. IMPRESSION: 1. Acute versus subacute T12 compression fracture. 2. Mild thoracic spondylosis. Reviewed, dictated and finalized at location A.
--- NOTE | ~2024-07-18 | MR_ITS ---
EXAMINATION: MR lumbar spine wo con DATE: 07/19/2024 10:07 INDICATION: Low back pain. Fracture. TECHNIQUE: Magnetic resonance imaging (MRI) of the lumbar spine was performed without intravenous con trast. Sequences included sagittal T2-weighted FSE, sagittal T2-weighted FS FSE, sagittal T1-weighted FSE, and axial T2-weighted FSE. COMPARISON: CT 07/18/2024, 11/22/23 FINDINGS: Bone alignment is normal. There is mild chronic anterior wedging of T11 vertebral body. The re is a compression fracture of T12 with 1/5 loss of height and edema-like marrow signal intensity. T here is a compression fracture of L2 with 1/5 loss of height and edema-like marrow signal intensity. There is mildly decreased disc height at L3-L4 and L4-L5 and moderately decreased disc height at L5-S 1. The distal spinal cord signal intensity is normal. The conus medullaris is at L2. There are cysts in right kidney measuring up to 9.1 cm. The following disc levels are specifically discussed: L1-L2: The disc does not extend beyond the endplate margin. There is mild bilateral facet joint osteo arthritis. There is no neural foraminal stenosis. There is no central canal stenosis. L2-L3: The disc is bulging and has an annular fissure. There is mild bilateral facet joint osteoarthr itis. There is mild bilateral neural foraminal stenosis. There is mild central canal stenosis. L3-L4: The disc is bulging and has an annular fissure. There is moderate bilateral facet joint osteoa rthritis. There is mild bilateral neural foraminal stenosis. There is mild central canal stenosis. L4-L5: The disc is bulging and has an annular fissure. There is moderate bilateral facet joint osteoa rthritis. There is moderate bilateral neural foraminal stenosis. There is mild central canal stenosis . L5-S1: The disc is bulging and has an annular fissure. There is severe bilateral facet joint osteoart hritis. There is moderate bilateral neural foraminal stenosis. There is mild central canal stenosis. IMPRESSION: 1. Acute versus subacute compression fractures of T12 and L2. 2. Moderate lumbar spondylosis. Reviewed, dictated and finalized at location A.
--- NOTE | ~2024-07-18 | XR_ITS ---
MODIFIED ESOPHAGRAM HISTORY: Noise with clearing throat. TECHNIQUE: Modified barium esophagram was performed on 07/21/2024. I administered fluoroscopy and per formed the exam with speech pathologist. Patient was seated for lateral fluoroscopic imaging for ing estion of thin liquids, pudding, solids and quantified amounts, followed by thin liquids in uncontrol led amounts. This was recorded on tape. A single fluoroscopic spot image was also recorded. The DAP f or this procedure was 1.488 Gycm2. The amount of fluoroscopy time used during this procedure was 1.9 minutes. FINDINGS: Oral stage: Adequate function. Pharyngeal stage: Flash laryngeal penetration without aspiration. Cervical/esophageal stage: Adequate function. IMPRESSION: Single episode of flash laryngeal penetration without aspiration with thin liquids. Plea se correlate with speech pathologist findings and specific feeding recommendations. Reviewed, dictated and finalized at location A. IMPRESSION: Single episode of flash laryngeal penetration without aspiration wi th thin liquids. Please correlate with speech pathologist findings and specifi c feeding recommendations.
--- NOTE | ~2024-07-18 | XR_ITS ---
EXAMINATION: XR abdomen/kub 1V DATE: 07/24/2024 12:48 INDICATION: Abdominal pain. TECHNIQUE: A supine view of the abdomen on 2 radiographs was obtained. COMPARISON: CT abdomen and pelvis 07/18/2024 FINDINGS: The colon is distended, which is new. The small bowel is normal in caliber. There is contra st in the bladder. There is instrumentation of proximal left femur. IMPRESSION: 1. New distention of the colon, likely adynamic ileus. Reviewed, dictated and finalized at location B.
--- NOTE | ~2024-07-18 | CT_ITS ---
EXAMINATION: CTA brain DATE: 07/23/2024 14:26 INDICATION: Anterior cerebral artery aneurysm. TECHNIQUE: Computed tomographic angiography (CTA) of the head was performed without and with 100 mL O mnipaque-350 intravenous contrast. Automated exposure control and iterative reconstruction technique were employed. The dose-length product was 1250.17 mGy-cm. Maximum intensity projection 3D reconstru ctions were created. Volume-rendered 3D reconstructions of the intracranial arteries were created by the technologist on a separate workstation. COMPARISON: Head CT 07/18/2024 FINDINGS: There are scattered areas of low attenuation in the cerebral white matter. There is no intr acranial hemorrhage, acute infarction, or abnormal intracranial mass lesion. The ventricles are sherita l in size. There is complete opacification of left maxillary sinus, which is small with thickened and sclerotic gr, consistent with chronic sinusitis. There is mild mucosal thickening in the ethmoid sinuses. The mastoid air cells are normal. There are likely changes of ocular lens replacement surger ies. Left vertebral artery is dominant. There is no significant stenosis of basilar artery or the pos terior cerebral arteries. There is no significant stenosis of intracranial internal carotid arteries or anterior or middle cerebral arteries. There is a 3 mm saccular aneurysm of left posterior communic ating artery. There is a 3 mm saccular aneurysm of anterior communicating artery. IMPRESSION: 1. Extensive nonspecific cerebral white matter disease, which likely represents chronic small vessel ischemic disease. 2. 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 3. 3 mm saccular aneurysm of anterior communicating artery. 4. Chronic sinusitis. Reviewed, dictated and finalized at location B.
--- NOTE | ~2024-07-18 | CT_ITS ---
CT brain wo con Ordering provider: Rosalee Leonard PA-C History: 73 years Male with . fall, head injury . Comparison: September 20, 2023. Technique: CT of the head without contrast. Radiation reduction technique utilized. The dose-length product was 605.33 mGy-cm. FINDINGS: BRAIN PARENCHYMA AND CSF SPACES: Mild leukoaraiosis and diffuse cortical atrophy. Mild atheromatous d isease. No midline shift, mass effect or hemorrhage. The brain parenchyma and CSF spaces are otherwi se normal. VISUALIZED PARANASAL SINUSES: Left maxillary sinus disease with thickened bone suggestive of chronic sinusitis. The hypodensity may indicate fungal infection. Clinical evaluation advised. MASTOIDS: Well aerated. BONES: The bones appear intact. SOFT TISSUES: Visualized nasopharynx is normal. Superficial soft tissues are normal. IMPRESSION: No acute intracranial findings. Reviewed, dictated and finalized at location A.
--- NOTE | ~2024-07-18 | CT_ITS ---
CT chst ab pel thor lum w Ordering provider: Rosalee Leonard PA-C History: 73 years Male with . fall, flank pain, back pain, abd pain . Comparison: None. Technique: CT chest with IV contrast. CT abdomen and pelvis CT abdomen and pelvis with IV and with or al contrast. Radiation reduction technique utilized.The dose-length product was 758.95 mGy-cm. 100 mL Omnipaque 350 was given IV. FINDINGS: CHEST: --VISUALIZED THORACIC INLET: Normal. --MEDIASTINUM: Aorta/coronary arteries: Mild atheromatous disease. Ascending aorta measures 3.8 cm. Heart/other: The heart is not enlarged. Pulmonary vessels: no pulmonary embolism. Lymph nodes: No mediastinal or hilar adenopathy. --LUNGS: Emphysematous changes of the lungs are noted. No pulmonary nodules or masses. No infiltrates or effusions. No pneumothorax. Atelectatic changes in the lung bases. --MUSCULOSKELETAL: Soft tissues: The superficial soft tissues are normal. Bones: Loss of volume is seen in T12 with sclerotic area which raises the possibility of a compressio n fracture. MRI evaluation advised. . Otherwise, Age appropriate degenerative changes of the spine. ABDOMEN/PELVIS: --MUSCULOSKELETAL: Bones: Age appropriate degenerative changes of the spine. Left hip postoperative changes for fixation of the femoral neck. Superficial soft tissues: The superficial soft tissues are normal. --UPPER ABDOMINAL ORGANS: Liver: Normal. Gallbladder: Normal. Spleen: Normal. Stomach/duodenum: Normal. Pancreas: Normal. Adrenals: Normal. Kidneys: Large right renal cyst in the upper pole which measures 9.2 x 7.9 cm. Another one is seen in the lower pole measuring 9.4 x 6.7 cm. Tiny cysts are seen in both kidneys. --PELVIC ORGANS: The bladder shows slightly thickened wall. No bladder stones. Enlarged prostate wit h calcification. --BOWEL AND MESENTERY: Colon: No evidence of diverticulitis. No evidence of appendicitis. Small Bowel: Normal. No obstruction. Peritoneum/mesentery: No free air or free fluid. No mesenteric lymphadenopathy. --RETROPERITONEUM: Mild atheromatous disease of the abdominal aorta. The aorta measures 2.3 cm. Slig ht dilatation of the common iliac arteries is also noted with atherosclerotic changes. No retroperito wil lymphadenopathy. IMPRESSION: CHEST: 1. No acute cardiopulmonary pathology. 2. Highly suggestive compression fracture of T12. 3. Emphysematous changes of the lungs with atelectatic changes in the lower lobes. ABDOMEN/PELVIS: 1. No evidence of solid organ injury. 2. Large right kidney upper pole and lower pole cysts 3. Highly suggestive compression fracture of L2. MRI evaluation advised. 4. [facility]. [facility] Ordering provider: Rosalee Leonard PA-C History: . fall, flank pain, back pain, abd pain . Comparison: None. Technique: CT thoracic spine without contrast. Automated exposure control and iterative reconstructi on technique were employed. The dose-length product was 758.95 mGy-cm. FINDINGS: VERTEBRAE: Highly suggestive compression fracture of T12. MRI evaluation advised. Kyphosis. Otherwise , Normal height and alignment. No subluxation or visible acute fracture. Degenerative changes of the spine. DISC SPACES: Narrowing of all the disc spaces in the mid and and lower thoracic area. PARASPINOUS SOFT TISSUES: Normal. IMPRESSION: Possible compression fracture of T12 MRI evaluation advised. Multilevel degenerative disc disease. [facility] [employer] [facility] w Ordering provider: Rosalee Leonard PA-C History: 73 years Male with . fall, flank pain, back pain, abd pain . Comparison: None. Technique: CT lumbar spine without contrast. Automated exposure control and iterative reconstruction technique were employed. The dose-length product was 758.95 mGy-cm. FINDINGS: VERTEBRAE: Slight loss of height of L2 with sclerotic changes seen suggestive of compression fracture . MRI evaluation advised. Otherwise, Normal height and alignment. No subluxation or visible acute fra cture. Degenerative changes of the spine. DISC SPACES: T12-L1: No stenosis. L1-L2: No stenosis. L2-L3: No stenosis. L3-L4: No stenosis. Mild diffuse disc bulge. L4-L5: No stenosis. Mild diffuse disc bulge with narrowing of the foramina. L5-S1: No stenosis. PARASPINOUS SOFT TISSUES: Mild atheromatous disease of the abdominal aorta. IMPRESSION: Possible compression fracture of L2. MRI evaluation advised. Multilevel disc bulges. Reviewed, dictated and finalized at location A. IMPRESSION: CHEST: 1. No acute cardiopulmonary pathology. 2. Highly suggestive compression fracture of T12. 3. Emphysematous changes of the lungs with atelectatic changes in the lower lo bes. ABDOMEN/PELVIS: 1. No evidence of solid organ injury. 2. Large right kidney upper pole and lower pole cysts 3. Highly suggestive compression fracture of L2. MRI evaluation advised. 4. Prostatic enlargement. ---- [facility] Ordering provider: Rosalee Leonard PA-C History: . fall, flank pain, back pain, abd pain . Comparison: None. Technique: CT thoracic spine without contrast. Automated exposure control and iterative reconstruction technique were employed. The dose-length product was 7 58.95 mGy-cm. FINDINGS: VERTEBRAE: Highly suggestive compression fracture of T12. MRI evaluation advise d. Kyphosis. Otherwise, Normal height and alignment. No subluxation or visible acute fracture. Degenerative changes of the spine. DISC SPACES: Narrowing of all the disc spaces in the mid and and lower thoracic area. PARASPINOUS SOFT TISSUES: Normal. IMPRESSION: Possible compression fracture of T12 MRI evaluation advised. Multilevel degenerative disc disease. [facility] Ordering provider: Rosalee Leonard PA-C History: 73 years Male with . fall, flank pain, back pain, abd pain . Comparison: None. Technique: CT lumbar spine without contrast. Automated exposure control and it erative reconstruction technique were employed. The dose-length product was 758 .95 mGy-cm. FINDINGS: VERTEBRAE: Slight loss of height of L2 with sclerotic changes seen suggestive o f compression fracture. MRI evaluation advised. Otherwise, Normal height and al ignment. No subluxation or visible acute fracture. Degenerative changes of the spine. DISC SPACES: T12-L1: No stenosis. L1-L2: No stenosis. L2-L3: No stenosis. L3-L4: No stenosis. Mild diffuse disc bulge. L4-L5: No stenosis. Mild diffuse disc bulge with narrowing of the foramina. L5-S1: No stenosis. PARASPINOUS SOFT TISSUES: Mild atheromatous disease of the abdominal aorta.
[2024-07-18 17:41] VITALS: BP 126/80; PULSE 74; RESP 14; TEMP 36.6; O2SAT 93
--- NOTE | 2024-07-18 17:50 | PC.NURSE ---
Pt refusing to let RN put depends on him stating Nope, not gonna happen
--- NOTE | 2024-07-18 17:58 | ED_ITS ---
HPI - Fall General Chief Complaint: Fall Stated Complaint: not acting right , fall yesterday Time Seen by Provider: 07/18/24 17:47 Source: patient and family Mode of arrival: EMS Limitations: dementia History of Present Illness HPI Narrative: This is a 73-year-old male that presents to the emergency department after a fall yesterday. Reportedly patient's found him next to the bed after hearing a thud. Was able to get him back up with the help of their neighbor. Today he has been not wanting to eat much. He is complaining of generalized pain. He has some bruising to his left flank from the fall. She believes he hit his head. Denies vomiting. Related Data Home Medications Medication Instructions Recorded Confirmed escitalopram oxalate 10 mg tablet 10 mg PO HS 07/19/24 07/19/24 Allergies Allergy/AdvReac Type Severity Reaction Status Date / Time Penicillins Allergy Unknown Rash Verified 07/18/24 17:59 Review of Systems Review of Systems: ROS unobtainable: Yes unobtainable due to medical condition PMFSH Past Medical History Medical History 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 Dizziness History of stroke with current residual effects Hypothyroidism Status post CVA Type 2 diabetes mellitus without complications Surgical History Surgical History H/O cataract extraction Hx of fracture of left hip s/p ORIF Family History Family History Father Family history of lung cancer Family history of congestive heart failure Social History Social History Years smoked: 20 Smoking status: Current every day smoker Tobacco type: cigarettes Second hand tobacco smoke exposure: No Alcohol intake: never Substance use: never Substance use type: does not use Do You Feel Safe in your Home?: Yes Lack of Transportation: No Lack of Food: Never True Current Housing: I Have Housing Concerned About Future Housing: No Difficulty Paying Gas/Electric Bills: No Difficulty Paying for Meds: No Currently Unemployed: No Education: Trade/Vocational Certificate Difficulty w/ Childcare or Family Care: No Living arrangements: with family Occupation/Education: retired Gender identity (if verbalized by the patient): Male Exam Narrative: GENERAL: Elderly, well-nourished, and in no acute distress. HEAD: Normocephalic, atraumatic. EYES: PERRLA and EOMI. ENT: Nares clear, no rhinorrhea or epistaxis. Mucous membranes moist. Oropharynx without tonsillar hypertrophy exudate or other lesions. Bilateral TMs pearly root non-bulging NECK: Supple. No adenopathy or masses. CHEST: Clear to auscultation. No respiratory distress. No wheezes rales or rhonchi HEART: Regular rate and rhythm. No murmur heard. Normal peripheral pulses. ABDOMEN: Soft, nontender, nondistended, normal active bowel sounds. EXTREMITIES: Normal range of motion. No edema or obvious deformity. SKIN: Warm, dry, no rash. NEURO: No focal deficits. Alert and oriented x1. CN II-XII grossly intact PSYCH: Normal mood and affect Course Course Emergency Course: Patient's family updated on workup. They do not feel he is safe to go home as they are having difficulty caring for him Consultations Consultation #1: spoke with hospitalist about patient and workup who accepts admission Date: 07/18/24 Vital Signs Vital signs: Vital Signs Temperature 97.8 F 07/18/24 17:41 Pulse Rate 74 07/18/24 17:41 Respiratory Rate 14 07/18/24 17:41 Blood Pressure 126/80 07/18/24 17:41 Pulse Oximetry 93 07/18/24 17:41 Oxygen Delivery Room Air 07/18/24 17:41 Temperature 98.2 F 07/18/24 23:00 Pulse Rate 70 07/19/24 00:03 Respiratory Rate 18 07/19/24 00:03 Blood Pressure 132/80 07/19/24 00:03 Pulse Oximetry 98 07/19/24 00:03 Oxygen Delivery Room Air 07/18/24 17:41 MDM - Fall MDM Narrative Medical decision making narrative: Patient presents to the emergency department after a fall yesterday with head injury, back pain. Patient is neurologically intact at baseline. His vitals are stable. CBC and metabolic panel without concerning findings. CT brain and cervical spine without acute findings. CT chest/ abdomen /pelvis without acute posttraumatic findings. CT scans of the thoracic and lumbar spine show T12 and L2 compression fractures. Patient's family updated on workup. They do not feel he is safe to go home as they are having difficulty caring for him. Spoke with hospitalist about patient and workup who accepts admission Differential Diagnosis Differential diagnosis: Likely compression fracture, concussion without loss of consciousness and other ( rib fracture, intra-abdominal trauma, subdural hematom a) Lab Data Attestation: I reviewed the patient's lab results. 07/18/24 18:17 07/18/24 18:17 Labs: Lab Results 07/18/24 07/18/24 Range/Units 18:17 19:46 WBC 9.6 (4.5-10.0) K/mm3 RBC 5.46 (4.6-6.20) M/mm3 Hgb 17.4 (14.0-18.0) g/dL Hct 49.6 (42.0-52.0) % MCV 90.8 (80-100) fl MCH 31.9 (26-34) pg MCHC 35.1 (32-36) g/dl RDW 14.6 H (11.5-14.5) % Plt Count 121 L (150-375) k/mm3 MPV 10.0 (7.4-10.4) fl Immature Gran % (Auto) 0.2 (0-0.5) % Neut % (Auto) 84.1 H (45.5-73.1) % Lymph % (Auto) 7.6 L (18.3-44.2) % Carver % (Auto) 7.0 (2.6-8.5) % Eos % (Auto) 0.6 (0-4.4) % Baso % (Auto) 0.5 (0.2-1.2) % Lymph # (Auto) 0.73 L (0.9-3.2) K/mm3 Carver # (Auto) 0.7 H (0.1-0.6) K/mm3 Eos # (Auto) 0.1 (0-0.3) K/mm3 Baso # (Auto) 0.1 (0.0-0.1) K/mm3 Abs Immat Gran (auto) 0.02 (0.00-0.031) K/mm3 Absolute Neuts (auto) 8.0 H (1.3-6.7) K/mm3 Absolute Nucleated RBC 0.000 (0.0-0.012) K/mm3 Nucleated RBC % 0.0 (0.0-0.2) % % Immature Plt Fraction 2.8 (0.9-11.2) % PT 15.4 H (11.1-14.7) Seconds INR 1.2 APTT 28.7 (22.3-36.8) Seconds Sodium 137 (137-145) mmol/L Potassium 4.2 (3.4-5.0) mmol/L Chloride 105 (98-107) mmol/L Carbon Dioxide 24 (22-30) mmol/L Anion Gap 8 (4-12) mmol/L BUN 22 H (9-20) mg/dL Creatinine 0.70 (0.7-1.3) mg/dL Estim Creat Clear Calc 72 ml/min Estimated GFR > 60 (59 - ) Glucose 122 H (65-110) mg/dL Calcium 8.9 (8.4-10.2) mg/dL Total Bilirubin 1.8 H (0.2-1.3) mg/dL AST 25 (17-59) U/L ALT 20 (6-50) U/L Alkaline Phosphatase 74 (38-126) U/L Total Protein 8.0 (6.3-8.2) g/dL Albumin 4.1 (3.5-5.1) g/dL Urine Color Dark yellow (Yellow) Urine Appearance Clear (Clear) Urine pH 5.0 (5.0-9.0) Ur Specific Sullivan 1.037 H (1.001-1.035) Urine Protein 1+ H (Negative) mg/dL Urine Glucose (UA) Negative (Negative) mg/dL Urine Ketones 2+ H (Negative) mg/dL Ur Blood (Man) 3+ H (Negative) Urine Nitrate Negative (Negative) Urine Bilirubin 1+ H (Negative) Urine Urobilinogen 1.0 (<2.0) mg/dL Add Ur Microanalysis Reviewed Leukocyte Esterase Rfl Trace H (Negative) RICHARD/UL Urine RBC 51-100 H (0-2) /hpf Urine WBC 0-5 (0-3) /hpf Ur Squamous Epith Cells None seen (Few) /hpf Urine Bacteria None seen /hpf Urine Casts 3-5 Influenza A (RT-PCR) Negative (Negative) Influenza B (RT-PCR) Negative (Negative) RSV (RT-PCR) Negative (Negative) SARS-CoV-2 RNA (RT-PCR) Negative (Negative) Imaging Data Radiologist's impression: ITS Impressions Head CT 07/18/24 19:09 IMPRESSION: No acute intracranial findings. Cervical Spine CT 07/18/24 19:23 IMPRESSION: No acute osseous abnormality cervical spine. Chest/Abdomen/Pelvis/Spine CT 07/18/24 19:45 IMPRESSION: CHEST: 1. No acute cardiopulmonary pathology. 2. Highly suggestive compression fracture of T12. 3. Emphysematous changes of the lungs with atelectatic changes in the lower lobes. ABDOMEN/PELVIS: 1. No evidence of solid organ injury. 2. Large right kidney upper pole and lower pole cysts 3. Highly suggestive compression fracture of L2. MRI evaluation advised. 4. Prostatic enlargement. --------- [facility] Ordering provider: Rosalee Lenoard PA-C History: . fall, flank pain, back pain, abd pain . Comparison: None. Technique: CT thoracic spine without contrast. Automated exposure control and iterative reconstruction technique were employed. The dose-length product was 758.95 mGy-cm. FINDINGS: VERTEBRAE: Highly suggestive compression fracture of T12. MRI evaluation advised. Kyphosis. Otherwise, Normal height and alignment. No subluxation or visible acute fracture. Degenerative changes of the spine. DISC SPACES: Narrowing of all the disc spaces in the mid and and lower thoracic area. PARASPINOUS SOFT TISSUES: Normal. IMPRESSION: Possible compression fracture of T12 MRI evaluation advised. Multilevel degenerative disc disease. CT chst ab Group 47 lum w Ordering provider: Rosalee Leonard PA-C History: 73 years Male with . fall, flank pain, back pain, abd pain . Comparison: None. Technique: CT lumbar spine without contrast. Automated exposure control and iterative reconstruction technique were employed. The dose-length product was 758.95 mGy-cm. FINDINGS: VERTEBRAE: Slight loss of height of L2 with sclerotic changes seen suggestive of compression fracture. MRI evaluation advised. Otherwise, Normal height and alignment. No subluxation or visible acute fracture. Degenerative changes of the spine. DISC SPACES: T12-L1: No stenosis. L1-L2: No stenosis. L2-L3: No stenosis. L3-L4: No stenosis. Mild diffuse disc bulge. L4-L5: No stenosis. Mild diffuse disc bulge with narrowing of the foramina. L5-S1: No stenosis. PARASPINOUS SOFT TISSUES: Mild atheromatous disease of the abdominal aorta. IMPRESSION: Possible compression fracture of L2. MRI evaluation advised. Multilevel disc bulges. Critical Care Time Critical Care Time Critical Care Time: No Discharge Plan Discharge Clinical Impression: Compression fracture Patient Disposition: Still a Patient Condition: Stable
[2024-07-18 18:25] LABS: Basophils Absolute Auto 0.1 K/mm3 (0.0-0.1); Basophils Percent Auto 0.5 % (0.2-1.2); Eosinophils Absolute Auto 0.1 K/mm3 (0-0.3); Eosinophils Percent Auto 0.6 % (0-4.4); Hematocrit 49.6 % (42.0-52.0); Hemoglobin 17.4 g/dL (14.0-18.0); Immature Granulocyte Absolute 0.02 K/mm3 (0.00-0.031); Immature Granulocyte Percent A 0.2 % (0-0.5); Immature Platelet Fraction Pct 2.8 % (0.9-11.2); Lymphocytes Absolute Auto 0.73 K/mm3 (0.9-3.2); Lymphocytes Percent Auto 7.6 % (18.3-44.2); Mean Corpuscular HGB Conc 35.1 g/dl (32-36); Mean Corpuscular Hemoglobin 31.9 pg (26-34); Mean Corpuscular Volume 90.8 fl (80-100); Monocytes Absolute Auto 0.7 K/mm3 (0.1-0.6); Neutrophils Percent Auto 84.1 % (45.5-73.1); Platelet Count Result 121 k/mm3 (150-375); Red Blood Count 5.46 M/mm3 (4.6-6.20); Red Cell Distribution Width 14.6 % (11.5-14.5); White Blood Count 9.6 K/mm3 (4.5-10.0)
[2024-07-18 18:33] LABS: Alanine Aminotransferase 20 U/L (6-50); Albumin Level 4.1 g/dL (3.5-5.1); Alkaline Phosphatase 74 U/L (38-126); Anion Gap 8 mmol/L (4-12); Aspartate Amino Transferase 25 U/L (17-59); Bilirubin,Total 1.8 mg/dL (0.2-1.3); Blood Urea Nitrogen 22 mg/dL (9-20); Calcium 8.9 mg/dL (8.4-10.2); Carbon Dioxide 24 mmol/L (22-30); Chloride 105 mmol/L (98-107); Estimated CRCL calculation 72 ml/min; Estimated Glomerular Filt Rate > 60; Glucose 122 mg/dL (65-110); Potassium 4.2 mmol/L (3.4-5.0); Sodium 137 mmol/L (137-145)
[2024-07-18 18:35] LABS: INR 1.2; Prothrombin Time 15.4 Seconds (11.1-14.7)
[2024-07-18 18:36] LABS: Partial Thromboplastin Time 28.7 Seconds (22.3-36.8)
[2024-07-18 19:01] LABS: Influenza A QL RT-PCR Negative (Negative); Influenza B QL RT-PCR Negative (Negative); RSV RNA, RT-PCR Negative (Negative); SARS-CoV-2 RNA PCR Negative (Negative)
--- NOTE | 2024-07-18 19:19 | PC.NURSE ---
received report from Caron at this time. pending orders: UA needed on this patient.
[2024-07-18 20:36] LABS: Add Urine Microscopic? YES; Appearance Urine Clear (Clear); Bacteria Urine None Seen /hpf; Bilirubin Urine 1+ (Negative); Blood Urine 3+ (Negative); Color Urine Dark Yellow (Yellow); Glucose Urine UA Negative (Negative); Ketones Urine 2+ mg/dL (Negative); Leukocyte Esterase Ur Trace LEU/UL (Negative); Need Manual Microscopic Reviewed; Nitrate Urine Negative (Negative); Protein Urine 1+ mg/dL (Negative); RBC Urine 51-100 /hpf (0-2); Specific Grav Ur 1.037 (1.001-1.035); Squamous Epithelial Cell Urine None Seen /hpf (Few); WBC Urine 0-5 /hpf (0-3)
[2024-07-18 20:46] VITALS: BP 140/88; PULSE 72; RESP 18; O2SAT 98
[2024-07-18] MEDS: HYDROcodone/acetaminophen (*CRX) 5-325 MG TABLET 1 TAB PO (20:50)
--- NOTE | 2024-07-18 20:52 | PC.NURSE ---
patient medicated per mar. this patient continues to be confused. family at bedside.
[2024-07-18] MEDS: KETOROLAC 15 MG/ML VIAL (*BKC) IV PUSH (22:03)
[2024-07-18 23:00] VITALS: BP 141/84; PULSE 72; RESP 18; TEMP 36.8; O2SAT 99
[2024-07-18 23:38] VITALS: BMI 24.5
--- NOTE | 2024-07-18 23:43 | PC.NURSE ---
called and gave report to ANA TALLEY at this time.
--- NOTE | 2024-07-18 23:56 | ADMGEN ---
This patient, Wes Zaman, was admitted to 2 Medical Room 255-01. Patient/family oriented to hospital policies and general routines including ID bracelet, bed and alarms, visiting hours, pain management, procedures, bathroom and other care routines, personal items, smoking policy, room service/diet, and visiting hours. Information on how to activate the Rapid Response Team has been discussed. Patient/Family are encouraged to report perceived risks to care and to ask questions if they do not understand what they are told or what they should do. Report received from MAYANK Fry in ED.
[2024-07-19 00:03] VITALS: BP 132/80; PULSE 70; RESP 18; O2SAT 98
[2024-07-19 00:11] VITALS: BMI 22.8
--- NOTE | 2024-07-19 01:16 | P.HP_ITS ---
H&P: HPI History of Present Illness Date/Time: 07/19/24 01:16 Chief Complaint: Fall at home Narrative: 73-year-old male with a history of Alzheimer's, hypothyroidism, diet- controlled [id number] diabetes mellitus, hyperlipidemia, history of CVA, left LINA cerebral aneurysm, tobacco use. He presents to [facility] ER on 07/18/2024 after a fall the day prior to admission. He lives with the , the heard a thud and found him next to the bed. Patient was able to get back up however he has not eaten much and has been sleeping most the day. Complains of generalized pain. believes the patient it is head. No loss of consciousness although. Head CT without acute intracranial findings. Cervical spine CT without acute osseous findings. CT chest abdomen pelvis spine suspect for compression fracture of T12 and L2. In the ER, administer [place] 5325 mg p.o. x1, Toradol 50 mg IV x1. Admitted on 07/18/2024 for spinal fracture, weakness, need for therapy and possible pl acement. Review of Systems Review of Systems: All systems reviewed & are unremarkable except as noted in HPI and below (Subjective) [facility] Past Medical History Medical History 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 Dizziness History of stroke with current residual effects Hypothyroidism Status post CVA Type 2 diabetes mellitus without complications Surgical History Surgical History H/O cataract extraction Hx of fracture of left hip s/p ORIF Family History Family History Father Family history of lung cancer Family history of congestive heart failure Social History Social History Years smoked: 20 Smoking status: Current every day smoker Tobacco type: cigarettes Second hand tobacco smoke exposure: No Alcohol intake: never Substance use: never Substance use type: does not use Do You Feel Safe in your Home?: Yes Lack of Transportation: No Lack of Food: Never True Current Housing: I Have Housing Concerned About Future Housing: No Difficulty Paying Gas/Electric Bills: No Difficulty Paying for Meds: No Currently Unemployed: No Education: Trade/Vocational Certificate Difficulty w/ Childcare or Family Care: No Living arrangements: with family Occupation/Education: retired Gender identity (if verbalized by the patient): Male Spiritual care concerns: No Meds Home Medications and Allergies Home Medications Medication Instructions Recorded Confirmed Type pravastatin 40 mg tablet 40 mg PO DAILY #90 tabs 03/31/24 07/19/24 Rx levothyroxine 75 mcg tablet 75 mcg PO DAILY #90 tabs 06/19/24 07/19/24 Rx (Synthroid) escitalopram oxalate 10 mg tablet 10 mg PO HS 07/19/24 07/19/24 History Allergies Allergy/AdvReac Type Severity Reaction Status Date / Time Penicillins Allergy Unknown Rash Verified 07/18/24 17:59 Vital Signs Vital Signs - 24 hr 07/18/24 17:41 07/18/24 20:46 07/18/24 23:00 Temperature 97.8 F 98.2 F Pulse Rate 74 72 72 Respiratory Rate 14 18 18 Blood Pressure 126/80 140/88 141/84 H Pulse Oximetry 93 98 99 Oxygen Delivery Room Air 07/19/24 00:03 Temperature Pulse Rate 70 Respiratory Rate 18 Blood Pressure 132/80 Pulse Oximetry 98 Oxygen Delivery Exam Const: General: comfortable and no acute distress Other: A&O x1. Pleasantly confused. Eyes: Pupils: Equal, round and reactive pupils present Neck: Neck: supple Resp: Effort & Inspection: normal respiratory effort Auscultation: clear to auscultation bilaterally Cardio: Rate: regular rate Rhythm: regular rhythm GI: GI Palp: Yes Soft to palpation and No Tenderness to palpation present (GI) Auscultation: normal bowel sounds Back/Spine/Pelvis: Other: Left flank bruising Neuro: Other: No focal deficits Extrem: General: no edema H&P: Results Labs Labs: Short CBC 07/18/24 Range/Units 18:17 WBC 9.6 (4.5-10.0) K/mm3 Hgb 17.4 (14.0-18.0) g/dL Hct 49.6 (42.0-52.0) % Plt Count 121 L (150-375) k/mm3 BMP 07/18/24 18:17 Sodium 137 Potassium 4.2 Chloride 105 Carbon Dioxide 24 BUN 22 H Creatinine 0.70 Glucose 122 H Calcium 8.9 Liver Function 07/18/24 Range/Units 18:17 Total Bilirubin 1.8 H (0.2-1.3) mg/dL AST 25 (17-59) U/L ALT 20 (6-50) U/L Alkaline Phosphatase 74 (38-126) U/L Albumin 4.1 (3.5-5.1) g/dL Urine 07/18/24 Range/Units 19:46 Urine Color Dark yellow (Yellow) Urine Appearance Clear (Clear) Urine pH 5.0 (5.0-9.0) Ur Specific [place] 1.037 H (1.001-1.035) Urine Protein 1+ H (Negative) mg/dL Urine Glucose (UA) Negative (Negative) mg/dL Assessment and Plan Assessment and plan (1) Type 2 diabetes mellitus without complications: Code(s): E11.9 - Type 2 diabetes mellitus without complications Status: Acute (2) Dementia: Code(s): F03.90 - Unspecified dementia, unspecified severity, without behavioral disturbance, psychotic disturbance, mood disturbance, and anxiety Status: Acute (3) Compression fracture: Status: Acute Plan 73-year-old male with a history of Alzheimer's, hypothyroidism, diet- controlled [id number]-spivsojxs diabetes mellitus, hyperlipidemia, history of CVA, left LINA cerebral aneurysm, tobacco use. He presents to [facility] ER on 07/18/2024 after a fall the day prior to admission. He lives with the , the heard a thud and found him next to the bed. Patient was able to get back up however he has not eaten much and has been sleeping most the day. Complains of generalized pain. believes the patient it is head. No loss of consciousness although. Head CT without acute intracranial findings. Cervical spine CT without acute osseous findings. CT chest abdomen pelvis spine suspect for compression fracture of T12 and L2. In the ER, administer Carbon[place] 5325 mg p.o. x1, Toradol 50 mg IV x1. Admitted on 07/18/2024 for spinal fracture, weakness, need for therapy and possible placement. ----- Bed rest. MRI thoracic and lumbar spine. PTOT. Care coordination to assist with placement. is amenable to short stay at rehab. ---- SCDs. Saline lock IV. reports like the patient to be DNR. Hospitalist [facility] Advance Care Plan I have confirmed that the patient's Advanced Care Plan is present, code status is documented, or surrogate decision maker is listed in patient medical record.: Yes Medication Reconciliation I have utilized all available resources to obtain, update and review the patients current medications (includes all prescriptions, OTC, herbals, cannabis, and nutritional supplements).: Yes
[2024-07-19] MEDS: LEVOTHYROXINE SODIUM 75 MCG TABLET PO (05:26)
[2024-07-19 06:00] VITALS: BP 120/93; PULSE 74; RESP 18; TEMP 36.4; O2SAT 98
--- NOTE | 2024-07-19 07:51 | ECG_ITS ---
Test Date: 2024-07-19 08:14:39 Measurements Intervals [place] Rate: 70 P: 59 KS: 168 QRS: -66 QRSD: 124 T: 67 QT: 419 QTc: 454 Interpretive Statements SINUS RHYTHM LEFT AXIS DEVIATION [QRS AXIS < -30] MODERATE INTRAVENTRICULAR CONDUCTION DELAY [110+ ms QRS DURATION] ABNORMAL ECG No previous ECG available for comparison Electronically Signed On 07-19-2024 13:16:21 CDT by Bautista Ortiz M.D.
[2024-07-19] MEDS: PRAVASTATIN SODIUM 20 MG TABLET 40 MG PO (08:09)
[2024-07-19 08:21] VITALS: O2SAT 92
[2024-07-19 08:33] LABS: Basophils Absolute Auto 0.1 K/mm3 (0.0-0.1); Basophils Percent Auto 0.6 % (0.2-1.2); Eosinophils Absolute Auto 0.2 K/mm3 (0-0.3); Eosinophils Percent Auto 2.1 % (0-4.4); Hematocrit 49.1 % (42.0-52.0); Hemoglobin 16.4 g/dL (14.0-18.0); Immature Granulocyte Absolute 0.04 K/mm3 (0.00-0.031); Immature Granulocyte Percent A 0.5 % (0-0.5); Immature Platelet Fraction Pct 3.8 % (0.9-11.2); Lymphocytes Absolute Auto 0.83 K/mm3 (0.9-3.2); Lymphocytes Percent Auto 9.8 % (18.3-44.2); Mean Corpuscular HGB Conc 33.4 g/dl (32-36); Mean Corpuscular Hemoglobin 31.1 pg (26-34); Mean Corpuscular Volume 93.2 fl (80-100); Mean Platelet Volume 10.1 fl (7.4-10.4); Monocytes Absolute Auto 0.7 K/mm3 (0.1-0.6); Monocytes Percent Auto 8.6 % (2.6-8.5); Neutrophils Absolute Auto 6.7 K/mm3 (1.3-6.7); Neutrophils Percent Auto 78.4 % (45.5-73.1); Platelet Count Result 118 k/mm3 (150-375); Red Blood Count 5.27 M/mm3 (4.6-6.20); Red Cell Distribution Width 14.6 % (11.5-14.5); White Blood Count 8.5 K/mm3 (4.5-10.0)
[2024-07-19 08:35] LABS: Glucose Point of Care 169 mg/dl (65-105)
[2024-07-19 08:41] LABS: Alanine Aminotransferase 19 U/L (6-50); Albumin Level 4.1 g/dL (3.5-5.1); Alkaline Phosphatase 61 U/L (38-126); Anion Gap 9 mmol/L (4-12); Aspartate Amino Transferase 24 U/L (17-59); Bilirubin,Total 1.6 mg/dL (0.2-1.3); Blood Urea Nitrogen 32 mg/dL (9-20); Calcium 8.9 mg/dL (8.4-10.2); Carbon Dioxide 25 mmol/L (22-30); Chloride 103 mmol/L (98-107); Estimated CRCL calculation 64 ml/min; Estimated Glomerular Filt Rate > 60; Glucose 143 mg/dL (65-110); Magnesium 2.3 mg/dL (1.6-2.3); Potassium 3.8 mmol/L (3.4-5.0); Sodium 137 mmol/L (137-145)
[2024-07-19 12:21] LABS: Glucose Point of Care 149 mg/dl (65-105)
--- NOTE | 2024-07-19 13:01 | PCPTNOTE ---
Patient has bedrest orders and no notes yet from neurosurgery consult yet about T12, L2 compression fx's. Will refer evaluation until those issues have been addressed.
--- NOTE | 2024-07-19 13:36 | P.PNIM_ITS ---
Progress Note: A&P Assessment and Plan (1) Type 2 diabetes mellitus without complications: Code(s): E11.9 - Type 2 diabetes mellitus without complications Status: Acute Assessment and Plan: * Diabetic protocol * SSI (2) Dementia: Code(s): F03.90 - Unspecified dementia, unspecified severity, without behavioral disturbance, psychotic disturbance, mood disturbance, and anxiety Status: Acute Assessment and Plan: * Continue Escitalopram (3) Compression fracture: Status: Acute Assessment and Plan: * Head CT without acute intracranial findings. Cervical spine CT without acute osseous findings. CT chest abdomen pelvis spine suspect for compression fracture of T12 and L2. * MRI lumbar today showed: IMPRESSION: 1. Acute versus subacute compression fractures of T12 and L2. 2. Moderate lumbar spondylosis. * MRI thoracic today showed: IMPRESSION: 1. Acute versus subacute T12 compression fracture. 2. Mild thoracic spondylosis. * Neurosurgery consulted, saw patient, and contacted [facility] to fit him for an LSO brace. He can wear this when out of bed. He does not need to wear it in bed unless it is more comfortable for him. * PT/OT. * Care coordination to assist with placement. is amenable to short stay at rehab. Subjective Date/time seen: 07/19/24 13:36 Interval history: Patient denies chest pain, palpitations, shortness of breath, headache, or dizziness. Patient reports pain in his back is a 10 , constant, and aching. Patient unsure why he is here. MRI lumbar today showed: IMPRESSION: 1. Acute versus subacute compression fractures of T12 and L2. 2. Moderate lumbar spondylosis. MRI thoracic today showed: IMPRESSION: 1. Acute versus subacute T12 compression fracture. 2. Mild thoracic spondylosis. Will consult Neurosurgery. Review of Systems Review of Systems: All systems reviewed & are unremarkable except as noted in HPI and below Exam Const: General: no acute distress and uncomfortable Resp: Effort & Inspection: normal respiratory effort Auscultation: clear to auscultation bilaterally Cardio: Rate: regular rate Rhythm: regular rhythm GI: GI Palp: Yes Soft to palpation Auscultation: normal bowel sounds Skin: Other: left flank bruising. Neuro: Other: A&O x1. Pleasantly confused. Extrem: General: no pedal edema Objective Data Vital Signs Vital Signs: Vital Signs - 24 hr 07/18/24 17:41 07/18/24 20:46 07/18/24 23:00 Temperature 97.8 F 98.2 F Pulse Rate 74 72 72 Respiratory Rate 14 18 18 Blood Pressure 126/80 140/88 141/84 H Pulse Oximetry 93 98 99 Oxygen Delivery Room Air 07/19/24 00:03 07/19/24 01:20 07/19/24 06:00 Temperature 97.5 F L Pulse Rate 70 74 Respiratory Rate 18 18 Blood Pressure 132/80 120/93 H Pulse Oximetry 98 98 Oxygen Delivery Room Air 07/19/24 08:21 Temperature Pulse Rate Respiratory Rate Blood Pressure Pulse Oximetry 92 Oxygen Delivery Room Air Intake/Output Intake/Output: Intake & Output 07/16/24 07/17/24 07/18/24 07/19/24 23:59 23:59 23:59 23:59 Intake Total 420 Balance 420 Meds/Results Medications: Active Medications Generic Name Dose Route Start Last Admin Trade Name Freq PRN Reason Stop Dose Admin Acetaminophen 1,000 mg 07/19/24 01:15 Acetaminophen 500 Mg Tablet PO Q6H PRN Mild Pain (1-3) or Fever Dextrose 12.5 gm 07/19/24 01:16 Dextrose 50% 25 Gm/50 Ml Syringe IV PUSH PRN PRN Hypoglycemia Protocol Escitalopram Oxalate 10 mg 07/19/24 01:15 07/19/24 01:52 Escitalopram Oxalate 10 Mg Tablet PO Not Given HS [facility] Glucagon 1 mg 07/19/24 01:16 Glucagon For Inj 1 Mg Vial IM PRN PRN Hypoglycemia Protocol Glucose 15 gm 07/19/24 01:16 Glucose Oral Gel 15 Gm Of Glucse In 37.5 Gm Tube PO PRN PRN Hypoglycemia Protocol Dextrose 1,000 mls @ 100 mls/hr 07/19/24 01:16 Dextrose 5% 1,000 Ml IVPB PRN PRN Hypoglycemia Protocol Insulin Aspart 2 - 5 units 07/19/24 08:00 07/19/24 12:52 Insulin Aspart (*Bkc) 100 Units/Ml SUB-Q Not Given TIDWM SEPIDEH Protocol Insulin Aspart 1 - 2 units 07/19/24 21:00 Insulin Aspart (*Bkc) 100 Units/Ml SUB-Q HS [facility] Protocol Levothyroxine Sodium 75 mcg 07/19/24 06:30 07/19/24 05:26 Levothyroxine Sodium 75 Mcg Tablet PO 75 mcg DAILY@0630 SEPIDEH Administration Pravastatin Sodium 40 mg 07/19/24 09:00 07/19/24 08:09 Pravastatin Sodium 20 Mg Tablet PO 40 mg DAILY SEPIDEH Administration Radiology Results: ITS Impressions Head CT 07/18/24 19:09 IMPRESSION: No acute intracranial findings. Cervical Spine CT 07/18/24 19:23 IMPRESSION: No acute osseous abnormality cervical spine. Chest/Abdomen/Pelvis/Spine CT 07/18/24 19:45 IMPRESSION: CHEST: 1. No acute cardiopulmonary pathology. 2. Highly suggestive compression fracture of T12. 3. Emphysematous changes of the lungs with atelectatic changes in the lower lobes. ABDOMEN/PELVIS: 1. No evidence of solid organ injury. 2. Large right kidney upper pole and lower pole cysts 3. Highly suggestive compression fracture of L2. MRI evaluation advised. 4. Prostatic enlargement. [facility] Ordering provider: Rosalee Leonard PA-C History: . fall, flank pain, back pain, abd pain . Comparison: None. Technique: CT thoracic spine without contrast. Automated exposure control and iterative reconstruction technique were employed. The dose-length product was 758.95 mGy-cm. FINDINGS: VERTEBRAE: Highly suggestive compression fracture of T12. MRI evaluation advised. Kyphosis. Otherwise, Normal height and alignment. No subluxation or visible acute fracture. Degenerative changes of the spine. DISC SPACES: Narrowing of all the disc spaces in the mid and and lower thoracic area. PARASPINOUS SOFT TISSUES: Normal. IMPRESSION: Possible compression fracture of T12 MRI evaluation advised. Multilevel degenerative disc disease. CT chst ab [facility] w Ordering provider: Rosalee Leonard PA-C History: 73 years Male with . fall, flank pain, back pain, abd pain . Comparison: None. Technique: CT lumbar spine without contrast. Automated exposure control and iterative reconstruction technique were employed. The dose-length product was 758.95 mGy-cm. FINDINGS: VERTEBRAE: Slight loss of height of L2 with sclerotic changes seen suggestive of compression fracture. MRI evaluation advised. Otherwise, Normal height and alignment. No subluxation or visible acute fracture. Degenerative changes of the spine. DISC SPACES: T12-L1: No stenosis. L1-L2: No stenosis. L2-L3: No stenosis. L3-L4: No stenosis. Mild diffuse disc bulge. L4-L5: No stenosis. Mild diffuse disc bulge with narrowing of the foramina. L5-S1: No stenosis. PARASPINOUS SOFT TISSUES: Mild atheromatous disease of the abdominal aorta. IMPRESSION: Possible compression fracture of L2. MRI evaluation advised. Multilevel disc bulges. Lumbar Spine MRI 07/19/24 10:11 IMPRESSION: 1. Acute versus subacute compression fractures of T12 and L2. 2. Moderate lumbar spondylosis. Thoracic Spine MRI 07/19/24 10:17 IMPRESSION: 1. Acute versus subacute T12 compression fracture. 2. Mild thoracic spondylosis. Labs Labs: Laboratory Results - last 24 hr 07/18/24 07/18/24 07/19/24 18:17 19:46 08:18 WBC 9.6 8.5 RBC 5.46 5.27 Hgb 17.4 16.4 Hct 49.6 49.1 MCV 90.8 93.2 MCH 31.9 31.1 MCHC 35.1 33.4 RDW 14.6 H 14.6 H Plt Count 121 L 118 L MPV 10.0 10.1 Immature Gran % (Auto) 0.2 0.5 Neut % (Auto) 84.1 H 78.4 H Lymph % (Auto) 7.6 L 9.8 L Christian % (Auto) 7.0 8.6 H Eos % (Auto) 0.6 2.1 Baso % (Auto) 0.5 0.6 Lymph # (Auto) 0.73 L 0.83 L Christian # (Auto) 0.7 H 0.7 H Eos # (Auto) 0.1 0.2 Baso # (Auto) 0.1 0.1 Abs Immat Gran (auto) 0.02 0.04 H Absolute Neuts (auto) 8.0 H 6.7 Absolute Nucleated RBC 0.000 0.000 Nucleated RBC % 0.0 0.0 % Immature Plt Fraction 2.8 3.8 PT 15.4 H INR 1.2 APTT 28.7 Sodium 137 137 Potassium 4.2 3.8 Chloride 105 103 Carbon Dioxide 24 25 Anion Gap 8 9 BUN 22 H 32 H D Creatinine 0.70 0.80 Estim Creat Clear Calc 72 64 Estimated GFR > 60 > 60 Glucose 122 H 143 H POC Capillary Glucose Calcium 8.9 8.9 Magnesium 2.3 Total Bilirubin 1.8 H 1.6 H AST 25 24 ALT 20 19 Alkaline Phosphatase 74 61 Total Protein 8.0 7.0 Albumin 4.1 4.1 Urine Color Dark yellow Urine Appearance Clear Urine pH 5.0 Ur Specific [place] 1.037 H Urine Protein 1+ H Urine Glucose (UA) Negative Urine Ketones 2+ H Ur Blood (Man) 3+ H Urine Nitrate Negative Urine Bilirubin 1+ H Urine Urobilinogen 1.0 Add Ur Microanalysis Reviewed Leukocyte Esterase Rfl Trace H Urine RBC 51-100 H Urine WBC 0-5 Ur Squamous Epith Cells None seen Urine Bacteria None seen Urine Casts 3-5 Influenza A (RT-PCR) Negative Influenza B (RT-PCR) Negative RSV (RT-PCR) Negative SARS-CoV-2 RNA (RT-PCR) Negative 07/19/24 07/19/24 08:22 12:11 WBC RBC Hgb Hct MCV MCH MCHC RDW Plt Count MPV Immature Gran % (Auto) Neut % (Auto) Lymph % (Auto) Christian % (Auto) Eos % (Auto) Baso % (Auto) Lymph # (Auto) Christian # (Auto) Eos # (Auto) Baso # (Auto) Abs Immat Gran (auto) Absolute Neuts (auto) Absolute Nucleated RBC Nucleated RBC % % Immature Plt Fraction PT INR APTT Sodium Potassium Chloride Carbon Dioxide Anion Gap BUN Creatinine Estim Creat Clear Calc Estimated GFR Glucose POC Capillary Glucose 169 H 149 H Calcium Magnesium Total Bilirubin AST ALT Alkaline Phosphatase Total Protein Albumin Urine Color Urine Appearance Urine pH Ur Specific [place] Urine Protein Urine Glucose (UA) Urine Ketones Ur Blood (Man) Urine Nitrate Urine Bilirubin Urine Urobilinogen Add Ur Microanalysis Leukocyte Esterase Rfl Urine RBC Urine WBC Ur Squamous Epith Cells Urine Bacteria Urine Casts Influenza A (RT-PCR) Influenza B (RT-PCR) RSV (RT-PCR) SARS-CoV-2 RNA (RT-PCR) Quality VTE Prophylaxis VTE prophylaxis: mechanical ordered
--- NOTE | 2024-07-19 14:01 | P.CONNS_ITS ---
Assessment and Plan Assessment and plan (1) Compression fracture: Status: Acute Plan -I have contacted [facility] [employer] to fit him for an LSO brace. He can wear this when out of bed. He does not need to wear it in bed unless it is more comfortable for him -Recommend avoiding NSAIDs as these can impair bone healing -Recommend PT/OT evaluations -Can consider adding a muscle relaxer if needed -I will arrange for follow up in clinic Consult date: 07/19/24 HPI: Wes Zaman is a 73 year old male with history of Alzheimer's, DM, HLD, stroke who presented to the hospital yesterday after having a fall at home. He states he fell out of bed but does not know the circumstances. He was complaining of generalized pain. Currently, he states he has back pain without radiation. He denies pain or paresthesias in the legs. Review of Systems Review of Systems: All systems reviewed & are unremarkable except as noted in HPI and below PMFSH Past Medical History Medical History 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 Dizziness History of stroke with current residual effects Hypothyroidism Status post CVA Type 2 diabetes mellitus without complications Surgical History Surgical History H/O cataract extraction Hx of fracture of left hip s/p ORIF Family History Family History Father Family history of lung cancer Family history of congestive heart failure Social History Social History Years smoked: 20 Smoking status: Current every day smoker Tobacco type: cigarettes Second hand tobacco smoke exposure: No Alcohol intake: never Substance use: never Substance use type: does not use Do You Feel Safe in your Home?: Yes Lack of Transportation: No Lack of Food: Never True Current Housing: I Have Housing Concerned About Future Housing: No Difficulty Paying Gas/Electric Bills: No Difficulty Paying for Meds: No Currently Unemployed: No Education: Trade/Vocational Certificate Difficulty w/ Childcare or Family Care: No Living arrangements: with family Occupation/Education: retired Gender identity (if verbalized by the patient): Male Spiritual care concerns: No Meds Home Medications and Allergies Home Medications Medication Instructions Recorded Confirmed Type pravastatin 40 mg tablet 40 mg PO DAILY #90 tabs 03/31/24 07/19/24 Rx levothyroxine 75 mcg tablet 75 mcg PO DAILY #90 tabs 06/19/24 07/19/24 Rx (Synthroid) escitalopram oxalate 10 mg tablet 10 mg PO HS 07/19/24 07/19/24 History Allergies Allergy/AdvReac Type Severity Reaction Status Date / Time Penicillins Allergy Unknown Rash Verified 07/18/24 17:59 Vital Signs Vital Signs - 24 hr 07/18/24 17:41 07/18/24 20:46 07/18/24 23:00 Temperature 97.8 F 98.2 F Pulse Rate 74 72 72 Respiratory Rate 14 18 18 Blood Pressure 126/80 140/88 141/84 H Pulse Oximetry 93 98 99 Oxygen Delivery Room Air 07/19/24 00:03 07/19/24 01:20 07/19/24 06:00 Temperature 97.5 F L Pulse Rate 70 74 Respiratory Rate 18 18 Blood Pressure 132/80 120/93 H Pulse Oximetry 98 98 Oxygen Delivery Room Air 07/19/24 08:21 Temperature Pulse Rate Respiratory Rate Blood Pressure Pulse Oximetry 92 Oxygen Delivery Room Air Exam Narrative: AO to self only Unless otherwise stated above, the patient's physical exam is as follows: General: -Well developed and well nourished. No a cute distress. Cooperative with exam. Mental status: -Awake and oriented to person, place, an d time. Integumentary: -No obvious skin lesions or masses Motor: -Muscle tone normal without spasticity o f flaccidity. No atrophy. No fasciculations. -No pronator drift -Right upper extremity: deltoid 5/5, bic eps 5/5, triceps 5/5, wrist extensors 5/5, wrist flexors 5/5, intrinsics 5/5 -Left upper extremity: deltoid 5/5, bess ps 5/5, triceps 5/5, wrist extensors 5/5, wrist flexors 5/5, intrinsics 5/5 -Right lower extremity: iliopsoas 5/5, q uadriceps 5/5, hamstrings 5/5, tibialis anterior 5/5, gastroc-soleus 5/5, EHL 5/5 -Left lower extremity: iliopsoas 5/5, qu adriceps 5/5, hamstrings 5/5, tibialis anterior 5/5, gastroc-soleus 5/5, EHL 5/5 Sensory: -Intact to light touch throughout -Normal proprioception throughout Reflexes: -1-2+ DTR's throughout -No Holguin's, clonus, or Babinski bilat erally Results Labs 07/19/24 08:18 07/19/24 08:18 Labs: Short CBC 07/18/24 07/19/24 Range/Units 18:17 08:18 WBC 9.6 8.5 (4.5-10.0) K/mm3 Hgb 17.4 16.4 (14.0-18.0) g/dL Hct 49.6 49.1 (42.0-52.0) % Plt Count 121 L 118 L (150-375) k/mm3 BMP 07/18/24 07/19/24 18:17 08:18 Sodium 137 137 Potassium 4.2 3.8 Chloride 105 103 Carbon Dioxide 24 25 BUN 22 H 32 H D Creatinine 0.70 0.80 Glucose 122 H 143 H Calcium 8.9 8.9 Liver Function 07/18/24 07/19/24 Range/Units 18:17 08:18 Total Bilirubin 1.8 H 1.6 H (0.2-1.3) mg/dL AST 25 24 (17-59) U/L ALT 20 19 (6-50) U/L Alkaline Phosphatase 74 61 (38-126) U/L Albumin 4.1 4.1 (3.5-5.1) g/dL Urine 07/18/24 Range/Units 19:46 Urine Color Dark yellow (Yellow) Urine Appearance Clear (Clear) Urine pH 5.0 (5.0-9.0) Ur Specific [place] 1.037 H (1.001-1.035) Urine Protein 1+ H (Negative) mg/dL Urine Glucose (UA) Negative (Negative) mg/dL Imaging My impression: I personally reviewed the CT and MRIs that show mild compression fractures at T12 and L2 with about 25% loss of height at T12 and no significant height loss at L2. There is no retropulsion or kyphosis
[2024-07-19] MEDS: ACETAMINOPHEN 500 MG TABLET 1000 MG PO ×2 (14:06→21:31)
[2024-07-19 15:46] VITALS: BP 108/67; PULSE 69; RESP 16; TEMP 36.5; O2SAT 94
[2024-07-19 17:09] LABS: Glucose Point of Care 145 mg/dl (65-105)
--- NOTE | 2024-07-19 18:19 | PC.NURSE ---
Spoke in person with senior outside sales representative from [employer] about patient's new back brace. He is to wear it when he is up doing activities or sitting in the chair, but does not need to wear it in bed.
[2024-07-19 19:47] VITALS: BP 120/49; PULSE 75; RESP 16; TEMP 36.5; O2SAT 94
[2024-07-19 19:51] VITALS: BP 120/49; PULSE 75; RESP 16; TEMP 36.5; O2SAT 94
[2024-07-19 20:51] LABS: Glucose Point of Care 114 mg/dl (65-105)
[2024-07-19] MEDS: ESCITALOPRAM OXALATE 10 MG TABLET PO (21:32)
[2024-07-20 04:04] VITALS: BP 112/52; PULSE 70; RESP 16; TEMP 36.3; O2SAT 93
[2024-07-20] MEDS: LEVOTHYROXINE SODIUM 75 MCG TABLET PO (05:34)
[2024-07-20 06:40] LABS: Basophils Percent Auto 0.5 % (0.2-1.2); Eosinophils Absolute Auto 0.2 K/mm3 (0-0.3); Eosinophils Percent Auto 2.6 % (0-4.4); Hematocrit 48.7 % (42.0-52.0); Hemoglobin 16.7 g/dL (14.0-18.0); Immature Granulocyte Absolute 0.04 K/mm3 (0.00-0.031); Immature Granulocyte Percent A 0.5 % (0-0.5); Immature Platelet Fraction Pct 4.6 % (0.9-11.2); Lymphocytes Percent Auto 11.8 % (18.3-44.2); Mean Corpuscular HGB Conc 34.3 g/dl (32-36); Mean Corpuscular Hemoglobin 31.7 pg (26-34); Mean Corpuscular Volume 92.4 fl (80-100); Mean Platelet Volume 10.3 fl (7.4-10.4); Monocytes Percent Auto 12.2 % (2.6-8.5); Neutrophils Absolute Auto 6.2 K/mm3 (1.3-6.7); Neutrophils Percent Auto 72.4 % (45.5-73.1); Platelet Count Result 113 k/mm3 (150-375); Red Blood Count 5.27 M/mm3 (4.6-6.20); Red Cell Distribution Width 14.3 % (11.5-14.5); White Blood Count 8.5 K/mm3 (4.5-10.0)
[2024-07-20 06:50] LABS: Alanine Aminotransferase 18 U/L (6-50); Albumin Level 3.8 g/dL (3.5-5.1); Alkaline Phosphatase 63 U/L (38-126); Anion Gap 7 mmol/L (4-12); Aspartate Amino Transferase 24 U/L (17-59); Bilirubin,Total 1.4 mg/dL (0.2-1.3); Blood Urea Nitrogen 30 mg/dL (9-20); Calcium 8.5 mg/dL (8.4-10.2); Carbon Dioxide 25 mmol/L (22-30); Chloride 105 mmol/L (98-107); Estimated CRCL calculation 72 ml/min; Estimated Glomerular Filt Rate > 60; Glucose 109 mg/dL (65-110); Sodium 137 mmol/L (137-145)
[2024-07-20 08:21] LABS: Glucose Point of Care 109 mg/dl (65-105)
[2024-07-20] MEDS: ACETAMINOPHEN 500 MG TABLET 1000 MG PO ×2 (08:47→17:15)
[2024-07-20] MEDS: PRAVASTATIN SODIUM 20 MG TABLET 40 MG PO (08:48)
--- NOTE | 2024-07-20 10:29 | P.PNIM_ITS ---
Progress Note: A&P Assessment and Plan (1) Type 2 diabetes mellitus without complications: Code(s): E11.9 - Type 2 diabetes mellitus without complications Status: Acute Assessment and Plan: * Diabetic protocol * SSI (2) Dementia: Code(s): F03.90 - Unspecified dementia, unspecified severity, without behavioral disturbance, psychotic disturbance, mood disturbance, and anxiety Status: Acute Assessment and Plan: * Continue Escitalopram * Speech swallow evaluation (3) Compression fracture: Status: Acute Assessment and Plan: * Head CT without acute intracranial findings. Cervical spine CT without acute osseous findings. CT chest abdomen pelvis spine suspect for compression fracture of T12 and L2. * MRI lumbar today showed: IMPRESSION: 1. Acute versus subacute compression fractures of T12 and L2. 2. Moderate lumbar spondylosis. * MRI thoracic today showed: IMPRESSION: 1. Acute versus subacute T12 compression fracture. 2. Mild thoracic spondylosis. * Neurosurgery consulted, saw patient, and contacted [facility] to fit him for an LSO brace. He can wear this when out of bed. He does not need to wear it in bed unless it is more comfortable for him. * PT/OT. * Care coordination to assist with placement. is amenable to short stay at rehab. Subjective Date/time seen: 07/20/24 10:29 Interval history: Patient sitting up in chair. Pain with movement. Patient reports back pain that is a 6 , constant, and aching. Patient reports that Tylenol is helping pain. Patient denies chest pain, palpitations, headache, dizziness, nausea, or vomiting. Nurse reported patient makes noise of trying to clear throat and may benefit from a speech swallow evaluation, patient has not had any choking episodes. Review of Systems Review of Systems: All systems reviewed & are unremarkable except as noted in HPI and below Exam Const: General: no acute distress and uncomfortable Resp: Effort & Inspection: normal respiratory effort Auscultation: clear to auscultation bilaterally Cardio: Rate: regular rate Rhythm: regular rhythm GI: GI Palp: Yes Soft to palpation Auscultation: normal bowel sounds Skin: Other: Left flank bruising. Neuro: Other: A&O x1. Pleasantly confused. Extrem: General: no pedal edema Objective Data Vital Signs Vital Signs: Vital Signs - 24 hr 07/19/24 15:46 07/19/24 19:47 07/19/24 19:51 Temperature 97.7 F 97.7 F 97.7 F Pulse Rate 69 75 75 Respiratory Rate 16 16 16 Blood Pressure 108/67 120/49 L 120/49 L Pulse Oximetry 94 94 94 Oxygen Delivery 07/19/24 21:25 07/20/24 04:04 07/20/24 08:48 Temperature 97.3 F L Pulse Rate 70 Respiratory Rate 16 Blood Pressure 112/52 L Pulse Oximetry 93 Oxygen Delivery Room Air Room Air Intake/Output Intake/Output: Intake & Output 07/17/24 07/18/24 07/19/24 07/20/24 23:59 23:59 23:59 23:59 Intake Total 540 220 Balance 540 220 Meds/Results Medications: Active Medications Generic Name Dose Route Start Last Admin Trade Name Freq PRN Reason Stop Dose Admin Acetaminophen 1,000 mg 07/19/24 01:15 07/20/24 08:47 Acetaminophen 500 Mg Tablet PO 1,000 mg Q6H PRN Administration Mild Pain (1-3) or Fever Dextrose 12.5 gm 07/19/24 01:16 Dextrose 50% 25 Gm/50 Ml Syringe IV PUSH PRN PRN Hypoglycemia Protocol Escitalopram Oxalate 10 mg 07/19/24 01:15 07/19/24 21:32 Escitalopram Oxalate 10 Mg Tablet PO 10 mg HS SEPIDEH Administration Glucagon 1 mg 07/19/24 01:16 Glucagon For Inj 1 Mg Vial IM PRN PRN Hypoglycemia Protocol Glucose 15 gm 07/19/24 01:16 Glucose Oral Gel 15 Gm Of Glucse In 37.5 Gm Tube PO PRN PRN Hypoglycemia Protocol Dextrose 1,000 mls @ 100 mls/hr 07/19/24 01:16 Dextrose 5% 1,000 Ml IVPB PRN PRN Hypoglycemia Protocol Insulin Aspart 2 - 5 units 07/19/24 08:00 07/20/24 08:49 Insulin Aspart (*Bkc) 100 Units/Ml SUB-Q Not Given TIDWM SEPIDEH Protocol Insulin Aspart 1 - 2 units 07/19/24 21:00 07/19/24 21:26 Insulin Aspart (*Bkc) 100 Units/Ml SUB-Q Not Given HS [facility] Protocol Levothyroxine Sodium 75 mcg 07/19/24 06:30 07/20/24 05:34 Levothyroxine Sodium 75 Mcg Tablet PO 75 mcg DAILY@0630 SEPIDEH Administration Pravastatin Sodium 40 mg 07/19/24 09:00 07/20/24 08:48 Pravastatin Sodium 20 Mg Tablet PO 40 mg DAILY SEPIDEH Administration Radiology Results: ITS Impressions Head CT 07/18/24 19:09 IMPRESSION: No acute intracranial findings. Cervical Spine CT 07/18/24 19:23 IMPRESSION: No acute osseous abnormality cervical spine. Chest/Abdomen/Pelvis/Spine CT 07/18/24 19:45 IMPRESSION: CHEST: 1. No acute cardiopulmonary pathology. 2. Highly suggestive compression fracture of T12. 3. Emphysematous changes of the lungs with atelectatic changes in the lower lobes. ABDOMEN/PELVIS: 1. No evidence of solid organ injury. 2. Large right kidney upper pole and lower pole cysts 3. Highly suggestive compression fracture of L2. MRI evaluation advised. 4. Prostatic enlargement. --- CT [facility] [email or web address] Ordering provider: Rosalee Leonard PA-C History: . fall, flank pain, back pain, abd pain . Comparison: None. Technique: CT thoracic spine without contrast. Automated exposure control and iterative reconstruction technique were employed. The dose-length product was 758.95 mGy-cm. FINDINGS: VERTEBRAE: Highly suggestive compression fracture of T12. MRI evaluation advised. Kyphosis. Otherwise, Normal height and alignment. No subluxation or visible acute fracture. Degenerative changes of the spine. DISC SPACES: Narrowing of all the disc spaces in the mid and and lower thoracic area. PARASPINOUS SOFT TISSUES: Normal. IMPRESSION: Possible compression fracture of T12 MRI evaluation advised. Multilevel degenerative disc disease. CT chst ab [employer] [facility] Ordering provider: Rosalee Leonard PA-C History: 73 years Male with . fall, flank pain, back pain, abd pain . Comparison: None. Technique: CT lumbar spine without contrast. Automated exposure control and iterative reconstruction technique were employed. The dose-length product was 758.95 mGy-cm. FINDINGS: VERTEBRAE: Slight loss of height of L2 with sclerotic changes seen suggestive of compression fracture. MRI evaluation advised. Otherwise, Normal height and alignment. No subluxation or visible acute fracture. Degenerative changes of the spine. DISC SPACES: T12-L1: No stenosis. L1-L2: No stenosis. L2-L3: No stenosis. L3-L4: No stenosis. Mild diffuse disc bulge. L4-L5: No stenosis. Mild diffuse disc bulge with narrowing of the foramina. L5-S1: No stenosis. PARASPINOUS SOFT TISSUES: Mild atheromatous disease of the abdominal aorta. IMPRESSION: Possible compression fracture of L2. MRI evaluation advised. Multilevel disc bulges. Lumbar Spine MRI 07/19/24 10:11 IMPRESSION: 1. Acute versus subacute compression fractures of T12 and L2. 2. Moderate lumbar spondylosis. Thoracic Spine MRI 07/19/24 10:17 IMPRESSION: 1. Acute versus subacute T12 compression fracture. 2. Mild thoracic spondylosis. Labs Labs: Laboratory Results - last 24 hr 07/19/24 07/19/24 07/19/24 12:11 17:01 19:42 WBC RBC Hgb Hct MCV MCH MCHC RDW Plt Count MPV Immature Gran % (Auto) Neut % (Auto) Lymph % (Auto) [place] % (Auto) Eos % (Auto) Baso % (Auto) Lymph # (Auto) [place] # (Auto) Eos # (Auto) Baso # (Auto) Abs Immat Gran (auto) Absolute Neuts (auto) Absolute Nucleated RBC Nucleated RBC % % Immature Plt Fraction Sodium Potassium Chloride Carbon Dioxide Anion Gap BUN Creatinine Estim Creat Clear Calc Estimated GFR Glucose POC Capillary Glucose 149 H 145 H 114 H Calcium Total Bilirubin AST ALT Alkaline Phosphatase Total Protein Albumin 07/20/24 07/20/24 06:25 08:14 WBC 8.5 RBC 5.27 Hgb 16.7 Hct 48.7 MCV 92.4 MCH 31.7 MCHC 34.3 RDW 14.3 Plt Count 113 L MPV 10.3 Immature Gran % (Auto) 0.5 Neut % (Auto) 72.4 Lymph % (Auto) 11.8 L [place] % (Auto) 12.2 H Eos % (Auto) 2.6 Baso % (Auto) 0.5 Lymph # (Auto) 1.00 [place] # (Auto) 1.0 H Eos # (Auto) 0.2 Baso # (Auto) 0.0 Abs Immat Gran (auto) 0.04 H Absolute Neuts (auto) 6.2 Absolute Nucleated RBC 0.000 Nucleated RBC % 0.0 % Immature Plt Fraction 4.6 Sodium 137 Potassium 4.0 Chloride 105 Carbon Dioxide 25 Anion Gap 7 BUN 30 H Creatinine 0.70 Estim Creat Clear Calc 72 Estimated GFR > 60 Glucose 109 POC Capillary Glucose 109 H Calcium 8.5 Total Bilirubin 1.4 H AST 24 ALT 18 Alkaline Phosphatase 63 Total Protein 7.0 Albumin 3.8 Quality VTE Prophylaxis VTE prophylaxis: mechanical ordered
[2024-07-20 12:03] LABS: Glucose Point of Care 198 mg/dl (65-105)
[2024-07-20 14:14] VITALS: BP 116/54; PULSE 68; RESP 18; TEMP 36.5; O2SAT 95
[2024-07-20 16:59] LABS: Glucose Point of Care 104 mg/dl (65-105)
[2024-07-20 20:33] VITALS: BP 118/60; PULSE 73; RESP 16; TEMP 36.8; O2SAT 94
[2024-07-20] MEDS: ESCITALOPRAM OXALATE 10 MG TABLET PO (21:12)
[2024-07-21] MEDS: ACETAMINOPHEN 500 MG TABLET 1000 MG PO ×3 (00:02→20:46)
[2024-07-21] MEDS: LEVOTHYROXINE SODIUM 75 MCG TABLET PO (05:12)
[2024-07-21 05:32] VITALS: BP 122/55; PULSE 66; RESP 20; TEMP 36.6; O2SAT 98
[2024-07-21 06:20] LABS: Basophils Absolute Auto 0.1 K/mm3 (0.0-0.1); Basophils Percent Auto 0.6 % (0.2-1.2); Eosinophils Absolute Auto 0.3 K/mm3 (0-0.3); Hematocrit 47.4 % (42.0-52.0); Hemoglobin 16.1 g/dL (14.0-18.0); Immature Granulocyte Absolute 0.03 K/mm3 (0.00-0.031); Immature Granulocyte Percent A 0.4 % (0-0.5); Immature Platelet Fraction Pct 4.5 % (0.9-11.2); Lymphocytes Absolute Auto 1.17 K/mm3 (0.9-3.2); Mean Corpuscular Hemoglobin 31.6 pg (26-34); Mean Corpuscular Volume 92.9 fl (80-100); Mean Platelet Volume 10.1 fl (7.4-10.4); Monocytes Percent Auto 11.8 % (2.6-8.5); Neutrophils Absolute Auto 5.9 K/mm3 (1.3-6.7); Neutrophils Percent Auto 70.2 % (45.5-73.1); Platelet Count Result 121 k/mm3 (150-375); Red Cell Distribution Width 14.2 % (11.5-14.5); White Blood Count 8.4 K/mm3 (4.5-10.0)
[2024-07-21 06:28] LABS: Alanine Aminotransferase 25 U/L (6-50); Albumin Level 3.6 g/dL (3.5-5.1); Alkaline Phosphatase 61 U/L (38-126); Anion Gap 7 mmol/L (4-12); Aspartate Amino Transferase 27 U/L (17-59); Blood Urea Nitrogen 28 mg/dL (9-20); Calcium 8.3 mg/dL (8.4-10.2); Carbon Dioxide 28 mmol/L (22-30); Chloride 105 mmol/L (98-107); Estimated CRCL calculation 72 ml/min; Estimated Glomerular Filt Rate > 60; Glucose 116 mg/dL (65-110); Potassium 3.9 mmol/L (3.4-5.0); Sodium 140 mmol/L (137-145)
[2024-07-21 08:00] LABS: Glucose Point of Care 111 mg/dl (65-105)
[2024-07-21] MEDS: PRAVASTATIN SODIUM 20 MG TABLET 40 MG PO (08:15)
--- NOTE | 2024-07-21 10:18 | P.PNIM_ITS ---
Progress Note: A&P Assessment and Plan (1) Type 2 diabetes mellitus without complications: Code(s): E11.9 - Type 2 diabetes mellitus without complications Status: Acute Assessment and Plan: * Diabetic protocol * SSI (2) Dementia: Code(s): F03.90 - Unspecified dementia, unspecified severity, without behavioral disturbance, psychotic disturbance, mood disturbance, and anxiety Status: Acute Assessment and Plan: * Continue Escitalopram * Patient passed Barium swallow. (3) Compression fracture: Status: Acute Assessment and Plan: * Head CT without acute intracranial findings. Cervical spine CT without acute osseous findings. CT chest abdomen pelvis spine suspect for compression fracture of T12 and L2. * MRI lumbar today showed: IMPRESSION: 1. Acute versus subacute compression fractures of T12 and L2. 2. Moderate lumbar spondylosis. * MRI thoracic today showed: IMPRESSION: 1. Acute versus subacute T12 compression fracture. 2. Mild thoracic spondylosis. * Neurosurgery consulted, saw patient, and contacted [employer] to fit him for an LSO brace. He can wear this when out of bed. He does not need to wear it in bed unless it is more comfortable for him. * PT/OT. * Care coordination to assist with placement. is amenable to short stay at rehab. * Tylenol 1,000 mg PO q 6 PRN for pain. * Add Tramadol 50 mg PO q 6 PRN. (4) Tobacco abuse: Code(s): Z72.0 - Tobacco use Status: Acute Assessment and Plan: * Add Nicotine patch. Subjective Date/time seen: 07/21/24 10:18 Interval history: Patient sitting up in chair. Pain with movement. Patient reports back pain that is a 9 , constant, and aching. Patient reports that Tylenol is helping pain. Nurse reports patient having pain in shortly after Tylenol. Patient denies chest pain, palpitations, headache, dizziness, nausea, or vomiting. Review of Systems Review of Systems: All systems reviewed & are unremarkable except as noted in HPI and below Exam Const: General: no acute distress and uncomfortable Resp: Effort & Inspection: normal respiratory effort Auscultation: clear to auscultation bilaterally Cardio: Rate: regular rate Rhythm: regular rhythm GI: GI Palp: Yes Soft to palpation Auscultation: normal bowel sounds Skin: Other: Left flank bruising. Neuro: Other: A&O x1. Pleasantly confused. Extrem: General: no pedal edema Objective Data Vital Signs Vital Signs: Vital Signs - 24 hr 07/20/24 14:14 07/20/24 20:33 07/20/24 20:00 Temperature 97.7 F 98.3 F Pulse Rate 68 73 Respiratory Rate 18 16 Blood Pressure 116/54 L 118/60 Pulse Oximetry 95 94 Oxygen Delivery Room Air 07/21/24 05:32 Temperature 97.8 F Pulse Rate 66 Respiratory Rate 20 Blood Pressure 122/55 L Pulse Oximetry 98 Oxygen Delivery Intake/Output Intake/Output: Intake & Output 07/18/24 07/19/24 07/20/24 07/21/24 23:59 23:59 23:59 23:59 Intake Total 540 220 200 Balance 540 220 200 Meds/Results Medications: Active Medications Generic Name Dose Route Start Last Admin Trade Name Freq PRN Reason Stop Dose Admin Acetaminophen 1,000 mg 07/19/24 01:15 07/21/24 08:15 Acetaminophen 500 Mg Tablet PO 1,000 mg Q6H PRN Administration Mild Pain (1-3) or Fever Dextrose 12.5 gm 07/19/24 01:16 Dextrose 50% 25 Gm/50 Ml Syringe IV PUSH PRN PRN Hypoglycemia Protocol Escitalopram Oxalate 10 mg 07/19/24 01:15 07/20/24 21:12 Escitalopram Oxalate 10 Mg Tablet PO 10 mg HS SEPIDEH Administration Glucagon 1 mg 07/19/24 01:16 Glucagon For Inj 1 Mg Vial IM PRN PRN Hypoglycemia Protocol Glucose 15 gm 07/19/24 01:16 Glucose Oral Gel 15 Gm Of Glucse In 37.5 Gm Tube PO PRN PRN Hypoglycemia Protocol Dextrose 1,000 mls @ 100 mls/hr 07/19/24 01:16 Dextrose 5% 1,000 Ml IVPB PRN PRN Hypoglycemia Protocol Insulin Aspart 2 - 5 units 07/19/24 08:00 07/21/24 08:15 Insulin Aspart (*Bkc) 100 Units/Ml SUB-Q Not Given TIDWM SEPIDEH Protocol Insulin Aspart 1 - 2 units 07/19/24 21:00 07/20/24 21:10 Insulin Aspart (*Bkc) 100 Units/Ml SUB-Q Not Given HS SEPIDEH Protocol Levothyroxine Sodium 75 mcg 07/19/24 06:30 07/21/24 05:12 Levothyroxine Sodium 75 Mcg Tablet PO 75 mcg DAILY@0630 SEPIDEH Administration Pravastatin Sodium 40 mg 07/19/24 09:00 07/21/24 08:15 Pravastatin Sodium 20 Mg Tablet PO 40 mg DAILY SEPIDEH Administration Radiology Results: ITS Impressions Head CT 07/18/24 19:09 IMPRESSION: No acute intracranial findings. Cervical Spine CT 07/18/24 19:23 IMPRESSION: No acute osseous abnormality cervical spine. Chest/Abdomen/Pelvis/Spine CT 07/18/24 19:45 IMPRESSION: CHEST: 1. No acute cardiopulmonary pathology. 2. Highly suggestive compression fracture of T12. 3. Emphysematous changes of the lungs with atelectatic changes in the lower lobes. ABDOMEN/PELVIS: 1. No evidence of solid organ injury. 2. Large right kidney upper pole and lower pole cysts 3. Highly suggestive compression fracture of L2. MRI evaluation advised. 4. Prostatic enlargement. ------ CT chst ab [employer] Ordering provider: Rosalee Leonard PA-C History: . fall, flank pain, back pain, abd pain . Comparison: None. Technique: CT thoracic spine without contrast. Automated exposure control and iterative reconstruction technique were employed. The dose-length product was 758.95 mGy-cm. FINDINGS: VERTEBRAE: Highly suggestive compression fracture of T12. MRI evaluation advised. Kyphosis. Otherwise, Normal height and alignment. No subluxation or visible acute fracture. Degenerative changes of the spine. DISC SPACES: Narrowing of all the disc spaces in the mid and and lower thoracic area. PARASPINOUS SOFT TISSUES: Normal. IMPRESSION: Possible compression fracture of T12 MRI evaluation advised. Multilevel degenerative disc disease. CT chst ab pel [place] lum w Ordering provider: Rosalee Leonard PA-C History: 73 years Male with . fall, flank pain, back pain, abd pain . Comparison: None. Technique: CT lumbar spine without contrast. Automated exposure control and iterative reconstruction technique were employed. The dose-length product was 758.95 mGy-cm. FINDINGS: VERTEBRAE: Slight loss of height of L2 with sclerotic changes seen suggestive of compression fracture. MRI evaluation advised. Otherwise, Normal height and alignment. No subluxation or visible acute fracture. Degenerative changes of the spine. DISC SPACES: T12-L1: No stenosis. L1-L2: No stenosis. L2-L3: No stenosis. L3-L4: No stenosis. Mild diffuse disc bulge. L4-L5: No stenosis. Mild diffuse disc bulge with narrowing of the foramina. L5-S1: No stenosis. PARASPINOUS SOFT TISSUES: Mild atheromatous disease of the abdominal aorta. IMPRESSION: Possible compression fracture of L2. MRI evaluation advised. Multilevel disc bulges. Lumbar Spine MRI 07/19/24 10:11 IMPRESSION: 1. Acute versus subacute compression fractures of T12 and L2. 2. Moderate lumbar spondylosis. Thoracic Spine MRI 07/19/24 10:17 IMPRESSION: 1. Acute versus subacute T12 compression fracture. 2. Mild thoracic spondylosis. Labs Labs: Laboratory Results - last 24 hr 07/20/24 07/20/24 07/21/24 11:58 16:56 06:10 WBC 8.4 RBC 5.10 Hgb 16.1 Hct 47.4 MCV 92.9 MCH 31.6 MCHC 34.0 RDW 14.2 Plt Count 121 L MPV 10.1 Immature Gran % (Auto) 0.4 Neut % (Auto) 70.2 Lymph % (Auto) 14.0 L [place] % (Auto) 11.8 H Eos % (Auto) 3.0 Baso % (Auto) 0.6 Lymph # (Auto) 1.17 [place] # (Auto) 1.0 H Eos # (Auto) 0.3 Baso # (Auto) 0.1 Abs Immat Gran (auto) 0.03 Absolute Neuts (auto) 5.9 Absolute Nucleated RBC 0.000 Nucleated RBC % 0.0 % Immature Plt Fraction 4.5 Sodium 140 Potassium 3.9 Chloride 105 Carbon Dioxide 28 Anion Gap 7 BUN 28 H Creatinine 0.70 Estim Creat Clear Calc 72 Estimated GFR > 60 Glucose 116 H POC Capillary Glucose 198 H 104 Calcium 8.3 L Total Bilirubin 1.0 AST 27 ALT 25 Alkaline Phosphatase 61 Total Protein 7.0 Albumin 3.6 07/21/24 07:56 WBC RBC Hgb Hct MCV MCH MCHC RDW Plt Count MPV Immature Gran % (Auto) Neut % (Auto) Lymph % (Auto) [place] % (Auto) Eos % (Auto) Baso % (Auto) Lymph # (Auto) [place] # (Auto) Eos # (Auto) Baso # (Auto) Abs Immat Gran (auto) Absolute Neuts (auto) Absolute Nucleated RBC Nucleated RBC % % Immature Plt Fraction Sodium Potassium Chloride Carbon Dioxide Anion Gap BUN Creatinine Estim Creat Clear Calc Estimated GFR Glucose POC Capillary Glucose 111 H Calcium Total Bilirubin AST ALT Alkaline Phosphatase Total Protein Albumin Quality VTE Prophylaxis VTE prophylaxis: mechanical ordered
--- NOTE | 2024-07-21 10:41 | PCSTNOTE ---
Please refer to the Bedside Swallow Evaluation in the EMR. Please note, silent aspiration cannot be ruled out at bedside.
[2024-07-21] MEDS: traMADol HCL (*CRX) 50 MG TABLET PO ×2 (11:00→20:46)
[2024-07-21 11:46] LABS: Glucose Point of Care 121 mg/dl (65-105)
[2024-07-21 14:00] VITALS: BP 111/68; PULSE 79; RESP 18; TEMP 36.4; O2SAT 98
--- NOTE | 2024-07-21 14:36 | PCSTNOTE ---
Please refer to the Modified Barium Swallow Evaluation in the EMR. The above pt was seen for a modified barium swallow due to reported overt s/s of aspiration during the bedside swallow evaluation. The pt has a h/o CVA. Upper and lower full dentures were in place for the exam and of good fit. The pt was cooperative but only oriented x1 during the exam. He was seated for a lateral view and presented with 5cc of thin liquid barium via a spoon, pudding consistency barium via a spoon, a cracker coated with barium pudding via spoon (small pieces and larger pieces), and an uncontrolled thin liquid barium bolus. This was presented via a cup and then a straw. Oral preparatory and oral phase symptoms: none. Pharyngeal phase symptoms: a single occurrence of flash penetration with thin liquids when taken via a cup. It was cleared instantly from the laryngeal vestibule with no aspiration. Esophageal stage symptoms: none. No aspiration occurred. Impressions: Overall, the patient presents with functional swallow ability throughout all stages of the swallow. Flash laryngeal penetration was exhibited x1 but there was no threat of aspiration. Recommendations: Regular diet with regular liquids
[2024-07-21] MEDS: NICOTINE (*PBKC) 21 MG PATCH 1 PATCH TRANSDERM (14:59)
[2024-07-21] MEDS: ESCITALOPRAM OXALATE 10 MG TABLET PO (20:46)
[2024-07-21 21:09] VITALS: BP 131/71; PULSE 84; RESP 16; TEMP 36.6; O2SAT 100
[2024-07-21 22:00] LABS: Glucose Point of Care 167 mg/dl (65-105)
[2024-07-22 04:34] VITALS: BP 148/62; PULSE 63; RESP 16; TEMP 36.9; O2SAT 97
[2024-07-22] MEDS: LEVOTHYROXINE SODIUM 75 MCG TABLET PO (06:08)
[2024-07-22] MEDS: traMADol HCL (*CRX) 50 MG TABLET PO ×2 (06:08→12:29)
[2024-07-22 06:25] LABS: Basophils Percent Auto 0.4 % (0.2-1.2); Eosinophils Absolute Auto 0.1 K/mm3 (0-0.3); Eosinophils Percent Auto 1.1 % (0-4.4); Hematocrit 48.5 % (42.0-52.0); Hemoglobin 16.2 g/dL (14.0-18.0); Immature Granulocyte Absolute 0.05 K/mm3 (0.00-0.031); Immature Granulocyte Percent A 0.6 % (0-0.5); Immature Platelet Fraction Pct 4.7 % (0.9-11.2); Lymphocytes Absolute Auto 0.99 K/mm3 (0.9-3.2); Lymphocytes Percent Auto 10.9 % (18.3-44.2); Mean Corpuscular HGB Conc 33.4 g/dl (32-36); Mean Corpuscular Hemoglobin 31.1 pg (26-34); Mean Corpuscular Volume 93.1 fl (80-100); Mean Platelet Volume 9.9 fl (7.4-10.4); Monocytes Absolute Auto 0.8 K/mm3 (0.1-0.6); Monocytes Percent Auto 8.7 % (2.6-8.5); Neutrophils Absolute Auto 7.1 K/mm3 (1.3-6.7); Neutrophils Percent Auto 78.3 % (45.5-73.1); Platelet Count Result 136 k/mm3 (150-375); Red Blood Count 5.21 M/mm3 (4.6-6.20); Red Cell Distribution Width 14.2 % (11.5-14.5); White Blood Count 9.1 K/mm3 (4.5-10.0)
[2024-07-22 06:42] LABS: Alanine Aminotransferase 28 U/L (6-50); Albumin Level 3.9 g/dL (3.5-5.1); Alkaline Phosphatase 66 U/L (38-126); Anion Gap 4 mmol/L (4-12); Aspartate Amino Transferase 28 U/L (17-59); Bilirubin,Total 1.1 mg/dL (0.2-1.3); Blood Urea Nitrogen 24 mg/dL (9-20); Calcium 8.8 mg/dL (8.4-10.2); Carbon Dioxide 31 mmol/L (22-30); Chloride 104 mmol/L (98-107); Estimated CRCL calculation 72 ml/min; Estimated Glomerular Filt Rate > 60; Glucose 121 mg/dL (65-110); Potassium 4.6 mmol/L (3.4-5.0); Sodium 139 mmol/L (137-145)
[2024-07-22 07:49] LABS: Glucose Point of Care 127 mg/dl (65-105)
[2024-07-22] MEDS: ACETAMINOPHEN 500 MG TABLET 1000 MG PO ×2 (09:03→15:05)
[2024-07-22] MEDS: NICOTINE (*PBKC) 21 MG PATCH 1 PATCH TRANSDERM (09:04)
[2024-07-22] MEDS: PRAVASTATIN SODIUM 20 MG TABLET 40 MG PO (09:04)
--- NOTE | 2024-07-22 11:34 | P.PNIM_ITS ---
Progress Note: A&P Assessment and Plan (1) Type 2 diabetes mellitus without complications: Code(s): E11.9 - Type 2 diabetes mellitus without complications Status: Acute Assessment and Plan: * Diabetic protocol * SSI (2) Dementia: Code(s): F03.90 - Unspecified dementia, unspecified severity, without behavioral disturbance, psychotic disturbance, mood disturbance, and anxiety Status: Acute Assessment and Plan: * Continue Escitalopram * Patient passed Barium swallow. (3) Compression fracture: Status: Acute Assessment and Plan: * Head CT without acute intracranial findings. Cervical spine CT without acute osseous findings. CT chest abdomen pelvis spine suspect for compression fracture of T12 and L2. * MRI lumbar today showed: IMPRESSION: 1. Acute versus subacute compression fractures of T12 and L2. 2. Moderate lumbar spondylosis. * MRI thoracic today showed: IMPRESSION: 1. Acute versus subacute T12 compression fracture. 2. Mild thoracic spondylosis. * Neurosurgery consulted, saw patient, and contacted [facility] [facility] [employer] to fit him for an LSO brace. He can wear this when out of bed. He does not need to wear it in bed unless it is more comfortable for him. * PT/OT. * Care coordination to assist with placement. is amenable to short stay at rehab. * Tylenol 1,000 mg PO q 6 PRN for pain. * Tramadol 50 mg PO q 6 PRN. (4) Anterior communicating artery aneurysm: Code(s): I67.1 - Cerebral aneurysm, nonruptured Status: Acute Assessment and Plan: * Neurology consulted. (5) Tobacco abuse: Code(s): Z72.0 - Tobacco use Status: Acute Assessment and Plan: * Nicotine patch. Subjective Date/time seen: 07/22/24 11:34 Interval history: Patient sitting up in chair. Pain with movement. Patient reports back pain that is a 6 , constant, and aching. Patient denies chest pain, palpitations, headache, dizziness, nausea, or vomiting. at bedside requesting patient see Neurology regarding aneurysm and neurological issues. reports that patient was seen at [facility] prior for aneurysm but not sure how aneurysm is doing and did not get information from [facility]. Review of Systems Review of Systems: All systems reviewed & are unremarkable except as noted in HPI and below Exam Const: General: no acute distress and uncomfortable Resp: Effort & Inspection: normal respiratory effort Auscultation: clear to auscultation bilaterally Cardio: Rate: regular rate Rhythm: regular rhythm GI: GI Palp: Yes Soft to palpation Auscultation: normal bowel sounds Skin: Other: Left flank bruising. Neuro: Other: A&O x1. Pleasantly confused. Extrem: General: no pedal edema Objective Data Vital Signs Vital Signs: Vital Signs - 24 hr 07/21/24 14:00 07/21/24 21:09 07/21/24 20:00 Temperature 97.6 F 97.8 F Pulse Rate 79 84 Respiratory Rate 18 16 Blood Pressure 111/68 131/71 Pulse Oximetry 98 100 Oxygen Delivery Room Air 07/22/24 04:34 Temperature 98.4 F Pulse Rate 63 Respiratory Rate 16 Blood Pressure 148/62 H Pulse Oximetry 97 Oxygen Delivery Intake/Output Intake/Output: Intake & Output 07/19/24 07/20/24 07/21/24 07/22/24 23:59 23:59 23:59 23:59 Intake Total 540 220 560 300 Balance 540 220 560 300 Meds/Results Medications: Active Medications Generic Name Dose Route Start Last Admin Trade Name Freq PRN Reason Stop Dose Admin Acetaminophen 1,000 mg 07/21/24 10:24 07/22/24 09:03 Acetaminophen 500 Mg Tablet PO 1,000 mg Q6H PRN Administration Pain 1-5 Dextrose 12.5 gm 07/19/24 01:16 Dextrose 50% 25 Gm/50 Ml Syringe IV PUSH PRN PRN Hypoglycemia Protocol Escitalopram Oxalate 10 mg 07/19/24 01:15 07/21/24 20:46 Escitalopram Oxalate 10 Mg Tablet PO 10 mg HS SEPIDEH Administration Glucagon 1 mg 07/19/24 01:16 Glucagon For Inj 1 Mg Vial IM PRN PRN Hypoglycemia Protocol Glucose 15 gm 07/19/24 01:16 Glucose Oral Gel 15 Gm Of Glucse In 37.5 Gm Tube PO PRN PRN Hypoglycemia Protocol Dextrose 1,000 mls @ 100 mls/hr 07/19/24 01:16 Dextrose 5% 1,000 Ml IVPB PRN PRN Hypoglycemia Protocol Insulin Aspart 2 - 5 units 07/19/24 08:00 07/22/24 08:04 Insulin Aspart (*Bkc) 100 Units/Ml SUB-Q Not Given TIDWM SEPIDEH Protocol Insulin Aspart 1 - 2 units 07/19/24 21:00 07/21/24 20:57 Insulin Aspart (*Bkc) 100 Units/Ml SUB-Q Not Given HS [facility] Protocol Levothyroxine Sodium 75 mcg 07/19/24 06:30 07/22/24 06:08 Levothyroxine Sodium 75 Mcg Tablet PO 75 mcg DAILY@0630 SEPIDEH Administration Nicotine 1 patch 07/21/24 14:25 07/22/24 09:04 Nicotine (*Pbkc) 21 Mg Patch TRANSDERM 1 patch DAILY SEPIDEH Administration Pravastatin Sodium 40 mg 07/19/24 09:00 07/22/24 09:04 Pravastatin Sodium 20 Mg Tablet PO 40 mg DAILY SEPIDEH Administration Tramadol HCl 50 mg 07/21/24 10:24 07/22/24 06:08 Tramadol Hcl (*Crx) 50 Mg Tablet PO 50 mg Q6H PRN Administration Pain Rated 6 or Greater Radiology Results: ITS Impressions Head CT 07/18/24 19:09 IMPRESSION: No acute intracranial findings. Cervical Spine CT 07/18/24 19:23 IMPRESSION: No acute osseous abnormality cervical spine. Chest/Abdomen/Pelvis/Spine CT 07/18/24 19:45 IMPRESSION: CHEST: 1. No acute cardiopulmonary pathology. 2. Highly suggestive compression fracture of T12. 3. Emphysematous changes of the lungs with atelectatic changes in the lower lobes. ABDOMEN/PELVIS: 1. No evidence of solid organ injury. 2. Large right kidney upper pole and lower pole cysts 3. Highly suggestive compression fracture of L2. MRI evaluation advised. 4. Prostatic enlargement. --- CT chst ab pel thor lum w Ordering provider: Rosalee Leonard PA-C History: . fall, flank pain, back pain, abd pain . Comparison: None. Technique: CT thoracic spine without contrast. Automated exposure control and iterative reconstruction technique were employed. The dose-length product was 758.95 mGy-cm. FINDINGS: VERTEBRAE: Highly suggestive compression fracture of T12. MRI evaluation advised. Kyphosis. Otherwise, Normal height and alignment. No subluxation or visible acute fracture. Degenerative changes of the spine. DISC SPACES: Narrowing of all the disc spaces in the mid and and lower thoracic area. PARASPINOUS SOFT TISSUES: Normal. IMPRESSION: Possible compression fracture of T12 MRI evaluation advised. Multilevel degenerative disc disease. CT chst ab pel thor lum w Ordering provider: Rosalee Leonard PA-C History: 73 years Male with . fall, flank pain, back pain, abd pain . Comparison: None. Technique: CT lumbar spine without contrast. Automated exposure control and iterative reconstruction technique were employed. The dose-length product was 758.95 mGy-cm. FINDINGS: VERTEBRAE: Slight loss of height of L2 with sclerotic changes seen suggestive of compression fracture. MRI evaluation advised. Otherwise, Normal height and alignment. No subluxation or visible acute fracture. Degenerative changes of the spine. DISC SPACES: T12-L1: No stenosis. L1-L2: No stenosis. L2-L3: No stenosis. L3-L4: No stenosis. Mild diffuse disc bulge. L4-L5: No stenosis. Mild diffuse disc bulge with narrowing of the foramina. L5-S1: No stenosis. PARASPINOUS SOFT TISSUES: Mild atheromatous disease of the abdominal aorta. IMPRESSION: Possible compression fracture of L2. MRI evaluation advised. Multilevel disc bulges. Lumbar Spine MRI 07/19/24 10:11 IMPRESSION: 1. Acute versus subacute compression fractures of T12 and L2. 2. Moderate lumbar spondylosis. Thoracic Spine MRI 07/19/24 10:17 IMPRESSION: 1. Acute versus subacute T12 compression fracture. 2. Mild thoracic spondylosis. Modified Barium Swallow 07/21/24 15:13 IMPRESSION: Single episode of flash laryngeal penetration without aspiration with thin liquids. Please correlate with speech pathologist findings and specific feeding recommendations. Labs Labs: Laboratory Results - last 24 hr 07/21/24 07/21/24 07/22/24 11:39 20:55 06:08 WBC 9.1 RBC 5.21 Hgb 16.2 Hct 48.5 MCV 93.1 MCH 31.1 MCHC 33.4 RDW 14.2 Plt Count 136 L MPV 9.9 Immature Gran % (Auto) 0.6 H Neut % (Auto) 78.3 H Lymph % (Auto) 10.9 L [place] % (Auto) 8.7 H Eos % (Auto) 1.1 Baso % (Auto) 0.4 Lymph # (Auto) 0.99 [place] # (Auto) 0.8 H Eos # (Auto) 0.1 Baso # (Auto) 0.0 Abs Immat Gran (auto) 0.05 H Absolute Neuts (auto) 7.1 H Absolute Nucleated RBC 0.000 Nucleated RBC % 0.0 % Immature Plt Fraction 4.7 Sodium 139 Potassium 4.6 Chloride 104 Carbon Dioxide 31 H Anion Gap 4 BUN 24 H Creatinine 0.70 Estim Creat Clear Calc 72 Estimated GFR > 60 Glucose 121 H POC Capillary Glucose 121 H 167 H Calcium 8.8 Total Bilirubin 1.1 AST 28 ALT 28 Alkaline Phosphatase 66 Total Protein 7.0 Albumin 3.9 07/22/24 07:46 WBC RBC Hgb Hct MCV MCH MCHC RDW Plt Count MPV Immature Gran % (Auto) Neut % (Auto) Lymph % (Auto) [place] % (Auto) Eos % (Auto) Baso % (Auto) Lymph # (Auto) [place] # (Auto) Eos # (Auto) Baso # (Auto) Abs Immat Gran (auto) Absolute Neuts (auto) Absolute Nucleated RBC Nucleated RBC % % Immature Plt Fraction Sodium Potassium Chloride Carbon Dioxide Anion Gap BUN Creatinine Estim Creat Clear Calc Estimated GFR Glucose POC Capillary Glucose 127 H Calcium Total Bilirubin AST ALT Alkaline Phosphatase Total Protein Albumin Quality VTE Prophylaxis VTE prophylaxis: mechanical ordered
[2024-07-22 11:58] LABS: Glucose Point of Care 216 mg/dl (65-105)
[2024-07-22] MEDS: INSULIN ASPART (*BKC) 100 UNITS/ML SUB-Q (12:27)
--- NOTE | 2024-07-22 12:54 | P.CONNEU_ITS ---
Assessment and Plan Assessment and plan (1) Dementia: Code(s): F03.90 - Unspecified dementia, unspecified severity, without behavioral disturbance, psychotic disturbance, mood disturbance, and anxiety Status: Acute (2) Status post CVA: Code(s): Z86.73 - Personal history of transient ischemic attack (TIA), and cerebral in farction without residual deficits Status: Acute (3) Anterior communicating artery aneurysm: Code(s): I67.1 - Cerebral aneurysm, nonruptured Status: Acute (4) Compression fracture: Status: Acute (5) Type 2 diabetes mellitus without complications: Code(s): E11.9 - Type 2 diabetes mellitus without complications Status: Acute (6) Tobacco abuse: Code(s): Z72.0 - Tobacco use Status: Acute Plan 1. History of unruptured cerebral aneurysm 2. Status post cerebrovascular accident in the past history of TIAs in the past as well 3. History of possible amyloid angiopathy from the previous sca 4. Severe lower lumbar spondylosis 5. Recent acute versus subacute T12 compression fracture 6. Mild laryngeal penetration on barium modified swallow. Patient has been seen by the neurosurgical service with suggestion for the LSO brace. His behavior problem raise the possibility of the frontal lobe dementia. Patient's is literally burnout would prefer long-term help and recommendation. 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 Patient has sustained fracture of the left hip in the past with status post ORIF, does not have history of smoking or alcohol intake at that particular time, exam in the emergency room was generally stable with normal vital signs normal CBC except the platelet count of 121 and abnormal UA, CT scan of the head neck for the intracranial bleed, CT scan of the cervical spine negative for any fracture dislocation, CT of the chest compatible with poor finding suggestive. of a compression fracture of T12 and abdominal and pelvic CT scan suggestive of the upper pole and lower pole cyst of the kidney on the right side in addition to compression fracture of L2 . Patient has had the neurosurgical consultation for the compression fractur e who have suggested to him to have LSO brace while out of the bed in addition to avoidance of the nonsteroidal anti-inflammatory medication and also adding the muscle relaxer PMFSH Past Medical History Medical History 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 Dizziness History of stroke with current residual effects Hypothyroidism Status post CVA Type 2 diabetes mellitus without complications Surgical History Surgical History H/O cataract extraction Hx of fracture of left hip s/p ORIF Family History Family History Father Family history of lung cancer Family history of congestive heart failure Social History Social History Years smoked: 20 Smoking status: Current every day smoker Tobacco type: cigarettes Second hand tobacco smoke exposure: No Alcohol intake: never Substance use: never Substance use type: does not use Do You Feel Safe in your Home?: Yes Lack of Transportation: No Lack of Food: Never True Current Housing: I Have Housing Concerned About Future Housing: No Difficulty Paying Gas/Electric Bills: No Difficulty Paying for Meds: No Currently Unemployed: No Education: Trade/Vocational Certificate Difficulty w/ Childcare or Family Care: No Living arrangements: with family Occupation/Education: retired Gender identity (if verbalized by the patient): Male Spiritual care concerns: No Meds Home Medications and Allergies Home Medications Medication Instructions Recorded Confirmed Type pravastatin 40 mg tablet 40 mg PO DAILY #90 tabs 03/31/24 07/19/24 Rx levothyroxine 75 mcg tablet 75 mcg PO DAILY #90 tabs 06/19/24 07/19/24 Rx (Synthroid) escitalopram oxalate 10 mg tablet 10 mg PO HS 07/19/24 07/19/24 History Allergies Allergy/AdvReac Type Severity Reaction Status Date / Time Penicillins Allergy Unknown Rash Verified 07/18/24 17:59 Vital Signs Vital Signs - 24 hr 07/21/24 14:00 07/21/24 21:09 07/21/24 20:00 Temperature 36.4 C 36.6 C Pulse Rate 79 84 Respiratory Rate 18 16 Blood Pressure 111/68 131/71 Pulse Oximetry 98 100 Oxygen Delivery Room Air 07/22/24 04:34 Temperature 36.9 C Pulse Rate 63 Respiratory Rate 16 Blood Pressure 148/62 H Pulse Oximetry 97 Oxygen Delivery Exam Narrative: reveals him to be awake alert unable to follow all the verbal commands appropriately, head normocephalic with no bruit, ear nose throat examination normal, neck supple with no cervical bruit no thyromegaly no lymphadenopathy, heart regular with no murmur, lungs clear to auscultation, abdomen is soft nontender normal bowel sounds, neurologically he is awake alert tries to follow the verbal commands appropriately speech is not obviously dysphasic dysarthric or dysphonic his strength in upper extremities symmetrical strength in lower extremities symmetrical with symmetrical deep tendon reflexes and downgoing plantar response patient was not made to stand and walk at this particular time Results Labs 07/22/24 06:08 07/22/24 06:08 Labs: Short CBC 07/22/24 Range/Units 06:08 WBC 9.1 (4.5-10.0) K/mm3 Hgb 16.2 (14.0-18.0) g/dL Hct 48.5 (42.0-52.0) % Plt Count 136 L (150-375) k/mm3 [facility] 07/22/24 06:08 Sodium 139 Potassium 4.6 Chloride 104 Carbon Dioxide 31 H BUN 24 H Creatinine 0.70 Glucose 121 H Calcium 8.8 Liver Function 07/22/24 Range/Units 06:08 Total Bilirubin 1.1 (0.2-1.3) mg/dL AST 28 (17-59) U/L ALT 28 (6-50) U/L Alkaline Phosphatase 66 (38-126) U/L Albumin 3.9 (3.5-5.1) g/dL
[2024-07-22 13:51] VITALS: BP 115/55; PULSE 55; RESP 16; TEMP 36.6; O2SAT 96
[2024-07-22 16:54] LABS: Glucose Point of Care 140 mg/dl (65-105)
[2024-07-22] MEDS: ESCITALOPRAM OXALATE 10 MG TABLET PO (20:39)
[2024-07-22 20:40] VITALS: PULSE 81; RESP 16; O2SAT 93
[2024-07-22 21:04] VITALS: BP 129/52; PULSE 81; RESP 16; TEMP 36.6; O2SAT 93
[2024-07-23] MEDS: traMADol HCL (*CRX) 50 MG TABLET PO ×3 (01:37→19:56)
[2024-07-23] MEDS: LEVOTHYROXINE SODIUM 75 MCG TABLET PO (05:36)
[2024-07-23 05:37] VITALS: BP 122/50; PULSE 68; RESP 16; TEMP 36.4; O2SAT 96
[2024-07-23 06:21] LABS: Basophils Absolute Auto 0.1 K/mm3 (0.0-0.1); Basophils Percent Auto 0.5 % (0.2-1.2); Eosinophils Percent Auto 0.3 % (0-4.4); Hematocrit 47.9 % (42.0-52.0); Hemoglobin 16.2 g/dL (14.0-18.0); Immature Granulocyte Absolute 0.05 K/mm3 (0.00-0.031); Immature Granulocyte Percent A 0.5 % (0-0.5); Lymphocytes Absolute Auto 0.98 K/mm3 (0.9-3.2); Lymphocytes Percent Auto 10.1 % (18.3-44.2); Mean Corpuscular HGB Conc 33.8 g/dl (32-36); Mean Corpuscular Hemoglobin 31.3 pg (26-34); Mean Corpuscular Volume 92.5 fl (80-100); Mean Platelet Volume 10.4 fl (7.4-10.4); Monocytes Absolute Auto 0.8 K/mm3 (0.1-0.6); Monocytes Percent Auto 8.4 % (2.6-8.5); Neutrophils Absolute Auto 7.8 K/mm3 (1.3-6.7); Neutrophils Percent Auto 80.2 % (45.5-73.1); Platelet Count Result 141 k/mm3 (150-375); Red Blood Count 5.18 M/mm3 (4.6-6.20); Red Cell Distribution Width 14.3 % (11.5-14.5); White Blood Count 9.7 K/mm3 (4.5-10.0)
[2024-07-23 06:36] LABS: Alanine Aminotransferase 25 U/L (6-50); Albumin Level 3.7 g/dL (3.5-5.1); Alkaline Phosphatase 70 U/L (38-126); Anion Gap 6 mmol/L (4-12); Aspartate Amino Transferase 22 U/L (17-59); Blood Urea Nitrogen 21 mg/dL (9-20); Calcium 8.5 mg/dL (8.4-10.2); Carbon Dioxide 27 mmol/L (22-30); Chloride 104 mmol/L (98-107); Estimated CRCL calculation 72 ml/min; Estimated Glomerular Filt Rate > 60; Glucose 125 mg/dL (65-110); Potassium 4.1 mmol/L (3.4-5.0); Sodium 137 mmol/L (137-145)
--- NOTE | 2024-07-23 08:56 | P.PNIM_ITS ---
Progress Note: A&P Assessment and Plan (1) Compression fracture: Status: Acute Assessment and Plan: * Head CT without acute intracranial findings. Cervical spine CT without acute osseous findings. CT chest abdomen pelvis spine suspect for compression fracture of T12 and L2. * MRI lumbar today showed: IMPRESSION: Acute versus subacute compression fractures of T12 and L2. Moderate lumbar spondylosis. * MRI thoracic today showed: IMPRESSION: Acute versus subacute T12 compression fracture. Mild thoracic spondylosis. * PT/OT. * Care coordination to assist with placement. is amenable to short stay at rehab. * Tylenol 1,000 mg PO q 6 PRN for pain. * Tramadol 50 mg PO q 6 PRN. * Neurosurgery consulted, saw patient, and contacted [facility] to fit him for an LSO brace. He can wear this when out of bed. He does not need to wear it in bed unless it is more comfortable for him. Plan for follow up outpatient. (2) Anterior communicating artery aneurysm: Code(s): I67.1 - Cerebral aneurysm, nonruptured Status: Acute Assessment and Plan: Per chart review, Dr. Luciano was told on 02/26/24 that the patient had a 4 mm left LINA cerebral aneurysm and was to follow up in a year or so. Unknown when diagnosed with aneurysm and no imaging seen in our system. * Brain CTA 1. Extensive nonspecific cerebral white matter disease, which likely represents chronic small vessel ischemic disease. 2. 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 3. 3 mm saccular aneurysm of anterior communicating artery. 4. Chronic sinusitis. * Blood pressure remains stable * Neurology consulted. (3) Type 2 diabetes mellitus without complications: Code(s): E11.9 - Type 2 diabetes mellitus without complications Status: Acute Assessment and Plan: - hypoglycemia protocol - POC blood glucose ACHS - home medication - none - correct regimen ordered - low dose TIDWM - A1C 6 on 02/08/14 (4) Hypothyroidism: Code(s): E03.9 - Hypothyroidism, unspecified Status: Acute Assessment and Plan: Chronic, continue home medication. - Levothyroxine 75 mcg daily (5) Dementia: Code(s): F03.90 - Unspecified dementia, unspecified severity, without behavioral disturbance, psychotic disturbance, mood disturbance, and anxiety Status: Acute Assessment and Plan: * Continue Escitalopram * Patient passed Barium swallow. * Per neurology, patients behavior problem raises the possibility of the frontal lobe dementia. (6) Tobacco abuse: Code(s): Z72.0 - Tobacco use Status: Acute Assessment and Plan: * Nicotine patch. Time Spent With Patient Time with patient: 25 - 35 minutes Subjective Date/time seen: 07/23/24 08:56 Interval history: 73-year-old male with past medical history of Alzheimer's, hypothyroidism, diet- controlled [id number] diabetes mellitus, hyperlipidemia, history of CVA, left LINA cerebral aneurysm, and tobacco use who presents to the hospital on 07/18/2024 after a fall the day prior to admission. Patient is pleasant lying comfortably in bed with bedside. yesterday patient was evaluated by Neurology for a cerebral aneurysm however we did not have any imaging on record. Ordered a CTA brain to further evaluate the anterior communicating artery aneurysm today and remains stable. Patient's blood pressure remained stable. Patient remains in the LSO brace for the compression fracture. He denies any tingling / numbness in the lower extremities. He has [facility] and will likely be discharged tomorrow. Review of Systems Review of Systems: All systems reviewed & are unremarkable except as noted in HPI and below Exam Narrative: AF HR 54 RR 18 SpO2 93 BP 167/56 General: male in no acute respiratory distress who is nontoxic appearing, lying semi recumbent in bed. HEENT: Normocephalic. Atraumatic. Extraocular movement intact. Sclera clear and anicteric.No facial asymmetry. Chest: Lungs are clear to auscultation bilaterally. No wheezes or crackles. CV: Heart was regular rate and rhythm. S1/S2. No murmurs, gallops, or rubs. Abd: Abdomen was soft. Nontender. Nondistended. Positive bowel sounds. No organomegaly or masses. Ext: No clubbing, cyanosis, or edema. 2+ DP pulses bilaterally. Neuro: Patient is alert and oriented x4. Strength is 5/5 in both upper and lower extremities. Speech is clear. Objective Data Vital Signs Vital Signs: Vital Signs - 24 hr 07/22/24 13:51 07/22/24 21:04 07/22/24 20:40 Temperature 97.8 F 97.8 F Pulse Rate 55 L 81 81 Respiratory Rate 16 16 16 Blood Pressure 115/55 L 129/52 L Pulse Oximetry 96 93 93 Oxygen Delivery Room Air 07/23/24 05:37 Temperature 97.5 F L Pulse Rate 68 Respiratory Rate 16 Blood Pressure 122/50 L Pulse Oximetry 96 Oxygen Delivery Intake/Output Intake/Output: Intake & Output 07/20/24 07/21/24 07/22/24 07/23/24 23:59 23:59 23:59 23:59 Intake Total 220 560 840 300 Balance 220 560 840 300 Meds/Results Medications: Active Medications Generic Name Dose Route Start Last Admin Trade Name Freq PRN Reason Stop Dose Admin Acetaminophen 1,000 mg 07/21/24 10:24 07/22/24 15:05 Acetaminophen 500 Mg Tablet PO 1,000 mg Q6H PRN Administration Pain 1-5 Dextrose 12.5 gm 07/19/24 01:16 Dextrose 50% 25 Gm/50 Ml Syringe IV PUSH PRN PRN Hypoglycemia Protocol Escitalopram Oxalate 10 mg 07/19/24 01:15 07/22/24 20:39 Escitalopram Oxalate 10 Mg Tablet PO 10 mg HS SEPIDEH Administration Glucagon 1 mg 07/19/24 01:16 Glucagon For Inj 1 Mg Vial IM PRN PRN Hypoglycemia Protocol Glucose 15 gm 07/19/24 01:16 Glucose Oral Gel 15 Gm Of Glucse In 37.5 Gm Tube PO PRN PRN Hypoglycemia Protocol Dextrose 1,000 mls @ 100 mls/hr 07/19/24 01:16 Dextrose 5% 1,000 Ml IVPB PRN PRN Hypoglycemia Protocol Insulin Aspart 2 - 5 units 07/19/24 08:00 07/22/24 17:06 Insulin Aspart (*Bkc) 100 Units/Ml SUB-Q Not Given TIDWM SEPIDEH Protocol Insulin Aspart 1 - 2 units 07/19/24 21:00 07/22/24 21:32 Insulin Aspart (*Bkc) 100 Units/Ml SUB-Q Not Given HS SEPIDEH Protocol Levothyroxine Sodium 75 mcg 07/19/24 06:30 07/23/24 05:36 Levothyroxine Sodium 75 Mcg Tablet PO 75 mcg DAILY@0630 SEPIDEH Administration Nicotine 1 patch 07/21/24 14:25 07/22/24 09:04 Nicotine (*Pbkc) 21 Mg Patch TRANSDERM 1 patch DAILY SEPIDEH Administration Pravastatin Sodium 40 mg 07/19/24 09:00 07/22/24 09:04 Pravastatin Sodium 20 Mg Tablet PO 40 mg DAILY SEPIDEH Administration Tramadol HCl 50 mg 07/21/24 10:24 07/23/24 01:37 Tramadol Hcl (*Crx) 50 Mg Tablet PO 50 mg Q6H PRN Administration Pain Rated 6 or Greater Radiology Results: ITS Impressions Head CT 07/18/24 19:09 IMPRESSION: No acute intracranial findings. Cervical Spine CT 07/18/24 19:23 IMPRESSION: No acute osseous abnormality cervical spine. Chest/Abdomen/Pelvis/Spine CT 07/18/24 19:45 IMPRESSION: CHEST: 1. No acute cardiopulmonary pathology. 2. Highly suggestive compression fracture of T12. 3. Emphysematous changes of the lungs with atelectatic changes in the lower lobes. ABDOMEN/PELVIS: 1. No evidence of solid organ injury. 2. Large right kidney upper pole and lower pole cysts 3. Highly suggestive compression fracture of L2. MRI evaluation advised. 4. Prostatic enlargement. CT chst ab pel thor lum w Ordering provider: Rosalee Leonard PA-C History: . fall, flank pain, back pain, abd pain . Comparison: None. Technique: CT thoracic spine without contrast. Automated exposure control and iterative reconstruction technique were employed. The dose-length product was 758.95 mGy-cm. FINDINGS: VERTEBRAE: Highly suggestive compression fracture of T12. MRI evaluation advised. Kyphosis. Otherwise, Normal height and alignment. No subluxation or visible acute fracture. Degenerative changes of the spine. DISC SPACES: Narrowing of all the disc spaces in the mid and and lower thoracic area. PARASPINOUS SOFT TISSUES: Normal. IMPRESSION: Possible compression fracture of T12 MRI evaluation advised. Multilevel degenerative disc disease. CT chst ab pel thor lum w Ordering provider: Rosalee Leonard PA-C History: 73 years Male with . fall, flank pain, back pain, abd pain . Comparison: None. Technique: CT lumbar spine without contrast. Automated exposure control and iterative reconstruction technique were employed. The dose-length product was 758.95 mGy-cm. FINDINGS: VERTEBRAE: Slight loss of height of L2 with sclerotic changes seen suggestive of compression fracture. MRI evaluation advised. Otherwise, Normal height and alignment. No subluxation or visible acute fracture. Degenerative changes of the spine. DISC SPACES: T12-L1: No stenosis. L1-L2: No stenosis. L2-L3: No stenosis. L3-L4: No stenosis. Mild diffuse disc bulge. L4-L5: No stenosis. Mild diffuse disc bulge with narrowing of the foramina. L5-S1: No stenosis. PARASPINOUS SOFT TISSUES: Mild atheromatous disease of the abdominal aorta. IMPRESSION: Possible compression fracture of L2. MRI evaluation advised. Multilevel disc bulges. Lumbar Spine MRI 07/19/24 10:11 IMPRESSION: 1. Acute versus subacute compression fractures of T12 and L2. 2. Moderate lumbar spondylosis. Thoracic Spine MRI 07/19/24 10:17 IMPRESSION: 1. Acute versus subacute T12 compression fracture. 2. Mild thoracic spondylosis. Modified Barium Swallow 07/21/24 15:13 IMPRESSION: Single episode of flash laryngeal penetration without aspiration with thin liquids. Please correlate with speech pathologist findings and specific feeding recommendations. Labs Labs: Laboratory Results - last 24 hr 07/22/24 07/22/24 07/23/24 11:56 16:48 05:57 WBC 9.7 RBC 5.18 Hgb 16.2 Hct 47.9 MCV 92.5 MCH 31.3 MCHC 33.8 RDW 14.3 Plt Count 141 L MPV 10.4 Immature Gran % (Auto) 0.5 Neut % (Auto) 80.2 H Lymph % (Auto) 10.1 L [place] % (Auto) 8.4 Eos % (Auto) 0.3 Baso % (Auto) 0.5 Lymph # (Auto) 0.98 [place] # (Auto) 0.8 H Eos # (Auto) 0.0 Baso # (Auto) 0.1 Abs Immat Gran (auto) 0.05 H Absolute Neuts (auto) 7.8 H Absolute Nucleated RBC 0.000 Nucleated RBC % 0.0 Sodium 137 Potassium 4.1 Chloride 104 Carbon Dioxide 27 Anion Gap 6 BUN 21 H Creatinine 0.70 Estim Creat Clear Calc 72 Estimated GFR > 60 Glucose 125 H POC Capillary Glucose 216 H 140 H Calcium 8.5 Total Bilirubin 1.0 AST 22 ALT 25 Alkaline Phosphatase 70 Total Protein 7.0 Albumin 3.7 Quality VTE Prophylaxis VTE prophylaxis: mechanical ordered
--- NOTE | 2024-07-23 09:19 | PCOTNOTE ---
The patient treatment was not able to be completed. Patient in to much pain and was screaming out with small movements. Will plan to continue treatment per plan of care.
[2024-07-23] MEDS: NICOTINE (*PBKC) 21 MG PATCH 1 PATCH TRANSDERM (09:29)
[2024-07-23] MEDS: PRAVASTATIN SODIUM 20 MG TABLET 40 MG PO (09:29)
[2024-07-23 14:00] VITALS: BP 167/56; PULSE 54; RESP 18; TEMP 36.3; O2SAT 93
--- NOTE | 2024-07-23 14:05 | WPDNEUROPN ---
Subjective Date/time seen: 07/23/24 14:05 Interval history: ongoing diagnosis of dementia with history of stroke and TIA in addition to the stable anterior communicating aneurysm and also type 2 diabetes mellitus has already been seen by the neurosurgical service for the acute versus subacute compression fracture of T12 and L2 for which the oral medication for the pain relief have been started and for the possibility of the SO brace the [facility] has been contacted neurological status remains unchanged. Objective Data Vital Signs Vital Signs: Vital Signs - 24 hr 07/22/24 21:04 07/22/24 20:40 07/23/24 05:37 Temperature 36.6 C 36.4 C L Pulse Rate 81 81 68 Respiratory Rate 16 16 16 Blood Pressure 129/52 L 122/50 L Pulse Oximetry 93 93 96 Oxygen Delivery Room Air 07/23/24 14:00 Temperature 36.3 C L Pulse Rate 54 L Respiratory Rate 18 Blood Pressure 167/56 H Pulse Oximetry 93 Oxygen Delivery Intake/Output Intake/Output: Intake & Output 07/20/24 07/21/24 07/22/24 07/23/24 23:59 23:59 23:59 23:59 Intake Total 220 693 013 0690 Balance 220 551 645 3477 Meds/Results Medications: Active Medications Generic Name Dose Route Start Last Admin Trade Name Freq PRN Reason Stop Dose Admin Acetaminophen 1,000 mg 07/21/24 10:24 07/22/24 15:05 Acetaminophen 500 Mg Tablet PO 1,000 mg Q6H PRN Administration Pain 1-5 Dextrose 12.5 gm 07/19/24 01:16 Dextrose 50% 25 Gm/50 Ml Syringe IV PUSH PRN PRN Hypoglycemia Protocol Escitalopram Oxalate 10 mg 07/19/24 01:15 07/22/24 20:39 Escitalopram Oxalate 10 Mg Tablet PO 10 mg HS SEPIDEH Administration Glucagon 1 mg 07/19/24 01:16 Glucagon For Inj 1 Mg Vial IM PRN PRN Hypoglycemia Protocol Glucose 15 gm 07/19/24 01:16 Glucose Oral Gel 15 Gm Of Glucse In 37.5 Gm Tube PO PRN PRN Hypoglycemia Protocol Dextrose 1,000 mls @ 100 mls/hr 07/19/24 01:16 Dextrose 5% 1,000 Ml IVPB PRN PRN Hypoglycemia Protocol Insulin Aspart 2 - 5 units 07/19/24 08:00 07/23/24 09:29 Insulin Aspart (*Bkc) 100 Units/Ml SUB-Q Not Given TIDWM [facility] Protocol Insulin Aspart 1 - 2 units 07/19/24 21:00 07/22/24 21:32 Insulin Aspart (*Bkc) 100 Units/Ml SUB-Q Not Given HS [facility] Protocol Levothyroxine Sodium 75 mcg 07/19/24 06:30 07/23/24 05:36 Levothyroxine Sodium 75 Mcg Tablet PO 75 mcg DAILY@0630 SEPIDEH Administration Nicotine 1 patch 07/21/24 14:25 07/23/24 09:29 Nicotine (*Pbkc) 21 Mg Patch TRANSDERM 1 patch DAILY SEPIDEH Administration Pravastatin Sodium 40 mg 07/19/24 09:00 07/23/24 09:29 Pravastatin Sodium 20 Mg Tablet PO 40 mg DAILY SEPIDEH Administration Tramadol HCl 50 mg 07/21/24 10:24 07/23/24 09:28 Tramadol Hcl (*Crx) 50 Mg Tablet PO 50 mg Q6H PRN Administration Pain Rated 6 or Greater Radiology Results: ITS Impressions Head CT 07/18/24 19:09 IMPRESSION: No acute intracranial findings. Cervical Spine CT 07/18/24 19:23 IMPRESSION: No acute osseous abnormality cervical spine. Chest/Abdomen/Pelvis/Spine CT 07/18/24 19:45 IMPRESSION: CHEST: 1. No acute cardiopulmonary pathology. 2. Highly suggestive compression fracture of T12. 3. Emphysematous changes of the lungs with atelectatic changes in the lower lobes. ABDOMEN/PELVIS: 1. No evidence of solid organ injury. 2. Large right kidney upper pole and lower pole cysts 3. Highly suggestive compression fracture of L2. MRI evaluation advised. 4. Prostatic enlargement. CT chst ab pel nay lum w Ordering provider: Rosalee Leonard PA-C History: . fall, flank pain, back pain, abd pain . Comparison: None. Technique: CT thoracic spine without contrast. Automated exposure control and iterative reconstruction technique were employed. The dose-length product was 758.95 mGy-cm. FINDINGS: VERTEBRAE: Highly suggestive compression fracture of T12. MRI evaluation advised. Kyphosis. Otherwise, Normal height and alignment. No subluxation or visible acute fracture. Degenerative changes of the spine. DISC SPACES: Narrowing of all the disc spaces in the mid and and lower thoracic area. PARASPINOUS SOFT TISSUES: Normal. IMPRESSION: Possible compression fracture of T12 MRI evaluation advised. Multilevel degenerative disc disease. CT chst ab pel thor lum w Ordering provider: Rosalee Leonard PA-C History: 73 years Male with . fall, flank pain, back pain, abd pain . Comparison: None. Technique: CT lumbar spine without contrast. Automated exposure control and iterative reconstruction technique were employed. The dose-length product was 758.95 mGy-cm. FINDINGS: VERTEBRAE: Slight loss of height of L2 with sclerotic changes seen suggestive of compression fracture. MRI evaluation advised. Otherwise, Normal height and alignment. No subluxation or visible acute fracture. Degenerative changes of the spine. DISC SPACES: T12-L1: No stenosis. L1-L2: No stenosis. L2-L3: No stenosis. L3-L4: No stenosis. Mild diffuse disc bulge. L4-L5: No stenosis. Mild diffuse disc bulge with narrowing of the foramina. L5-S1: No stenosis. PARASPINOUS SOFT TISSUES: Mild atheromatous disease of the abdominal aorta. IMPRESSION: Possible compression fracture of L2. MRI evaluation advised. Multilevel disc bulges. Lumbar Spine MRI 07/19/24 10:11 IMPRESSION: 1. Acute versus subacute compression fractures of T12 and L2. 2. Moderate lumbar spondylosis. Thoracic Spine MRI 07/19/24 10:17 IMPRESSION: 1. Acute versus subacute T12 compression fracture. 2. Mild thoracic spondylosis. Modified Barium Swallow 07/21/24 15:13 IMPRESSION: Single episode of flash laryngeal penetration without aspiration with thin liquids. Please correlate with speech pathologist findings and specific feeding recommendations. Labs Labs: Laboratory Results - last 24 hr 07/22/24 07/23/24 16:48 05:57 WBC 9.7 RBC 5.18 Hgb 16.2 Hct 47.9 MCV 92.5 MCH 31.3 MCHC 33.8 RDW 14.3 Plt Count 141 L MPV 10.4 Immature Gran % (Auto) 0.5 Neut % (Auto) 80.2 H Lymph % (Auto) 10.1 L [place] % (Auto) 8.4 Eos % (Auto) 0.3 Baso % (Auto) 0.5 Lymph # (Auto) 0.98 [place] # (Auto) 0.8 H Eos # (Auto) 0.0 Baso # (Auto) 0.1 Abs Immat Gran (auto) 0.05 H Absolute Neuts (auto) 7.8 H Absolute Nucleated RBC 0.000 Nucleated RBC % 0.0 Sodium 137 Potassium 4.1 Chloride 104 Carbon Dioxide 27 Anion Gap 6 BUN 21 H Creatinine 0.70 Estim Creat Clear Calc 72 Estimated GFR > 60 Glucose 125 H POC Capillary Glucose 140 H Calcium 8.5 Total Bilirubin 1.0 AST 22 ALT 25 Alkaline Phosphatase 70 Total Protein 7.0 Albumin 3.7
--- NOTE | 2024-07-23 14:19 | PCOTNOTE ---
The patient treatment was not able to be completed patient is out of the room. Will plan to continue treatment per plan of care.
[2024-07-23 16:50] LABS: Glucose Point of Care 150 mg/dl (65-105)
[2024-07-23 19:52] VITALS: BP 146/74; PULSE 71; RESP 18; TEMP 36.7; O2SAT 95
[2024-07-23] MEDS: ESCITALOPRAM OXALATE 10 MG TABLET PO (19:56)
[2024-07-23 20:24] LABS: Glucose Point of Care 187 mg/dl (65-105)
[2024-07-24] MEDS: traMADol HCL (*CRX) 50 MG TABLET PO ×3 (03:45→22:43)
[2024-07-24] MEDS: LEVOTHYROXINE SODIUM 75 MCG TABLET PO (05:47)
[2024-07-24 06:23] LABS: Basophils Percent Auto 0.4 % (0.2-1.2); Eosinophils Absolute Auto 0.1 K/mm3 (0-0.3); Eosinophils Percent Auto 0.6 % (0-4.4); Hemoglobin 16.9 g/dL (14.0-18.0); Immature Granulocyte Absolute 0.05 K/mm3 (0.00-0.031); Immature Granulocyte Percent A 0.5 % (0-0.5); Lymphocytes Absolute Auto 1.01 K/mm3 (0.9-3.2); Lymphocytes Percent Auto 10.1 % (18.3-44.2); Mean Corpuscular HGB Conc 34.5 g/dl (32-36); Mean Corpuscular Hemoglobin 31.7 pg (26-34); Mean Corpuscular Volume 91.9 fl (80-100); Monocytes Percent Auto 9.5 % (2.6-8.5); Neutrophils Absolute Auto 7.9 K/mm3 (1.3-6.7); Neutrophils Percent Auto 78.9 % (45.5-73.1); Platelet Count Result 168 k/mm3 (150-375); Red Blood Count 5.33 M/mm3 (4.6-6.20); Red Cell Distribution Width 14.2 % (11.5-14.5)
[2024-07-24 06:27] LABS: Glucose Point of Care 119 mg/dl (65-105)
[2024-07-24 06:29] VITALS: BP 144/60; PULSE 66; RESP 16; TEMP 36.5; O2SAT 95
[2024-07-24 06:36] LABS: Alanine Aminotransferase 26 U/L (6-50); Albumin Level 3.9 g/dL (3.5-5.1); Alkaline Phosphatase 74 U/L (38-126); Anion Gap 6 mmol/L (4-12); Aspartate Amino Transferase 26 U/L (17-59); Bilirubin,Total 1.4 mg/dL (0.2-1.3); Blood Urea Nitrogen 22 mg/dL (9-20); Calcium 8.9 mg/dL (8.4-10.2); Carbon Dioxide 29 mmol/L (22-30); Chloride 101 mmol/L (98-107); Estimated CRCL calculation 64 ml/min; Estimated Glomerular Filt Rate > 60; Glucose 122 mg/dL (65-110); Potassium 4.1 mmol/L (3.4-5.0); Sodium 136 mmol/L (137-145)
[2024-07-24 08:28] LABS: Glucose Point of Care 126 mg/dl (65-105)
[2024-07-24] MEDS: NICOTINE (*PBKC) 21 MG PATCH 1 PATCH TRANSDERM (09:56)
[2024-07-24] MEDS: PRAVASTATIN SODIUM 20 MG TABLET 40 MG PO (09:56)
[2024-07-24] MEDS: SENNA/DOCUSATE SODIUM TABLET 1 TAB PO ×2 (11:27→21:14)
[2024-07-24 11:57] LABS: Glucose Point of Care 178 mg/dl (65-105)
--- NOTE | 2024-07-24 13:34 | PCOTNOTE ---
Attempted to see Patient this afternoon. Patient stated having abdominal pain, per Patient's he has not had a bowel movement since he has been here. Patient refused to participate in any activities this P.M. Notified MAYANK.
[2024-07-24 14:00] VITALS: BP 141/83; PULSE 94; RESP 16; TEMP 36.4; O2SAT 93
--- NOTE | 2024-07-24 14:25 | P.PNIM_ITS ---
Progress Note: A&P Assessment and Plan (1) Ileus: Code(s): K56.7 - Ileus, unspecified Status: Acute Assessment and Plan: Patient abdomen is tender to palpation more on the LLQ. Slightly distended. He has not had a bowel movement since admission. - KUB: New distention of the colon, likely adynamic ileus. - Bowel regimen: Miralax, senna and biscodyl suppository - Monitor (2) Compression fracture: Status: Acute Assessment and Plan: * Head CT without acute intracranial findings. Cervical spine CT without acute osseous findings. CT chest abdomen pelvis spine suspect for compression fracture of T12 and L2. * MRI lumbar today showed: IMPRESSION: Acute versus subacute compression fractures of T12 and L2. Moderate lumbar spondylosis. * MRI thoracic today showed: IMPRESSION: Acute versus subacute T12 compression fracture. Mild thoracic spondylosis. * PT/OT. * Care coordination to assist with placement. is amenable to short stay at rehab. * Tylenol 1,000 mg PO q 6 PRN for pain. * Tramadol 50 mg PO q 6 PRN. * Neurosurgery consulted, saw patient, and contacted [facility] [facility] [employer] to fit him for an LSO brace. He can wear this when out of bed. He does not need to wear it in bed unless it is more comfortable for him. Plan for follow up outpatient. (3) Anterior communicating artery aneurysm: Code(s): I67.1 - Cerebral aneurysm, nonruptured Status: Acute Assessment and Plan: Per chart review, Dr. Luciano was told on 02/26/24 that the patient had a 4 mm left LINA cerebral aneurysm and was to follow up in a year or so. Unknown when diagnosed with aneurysm and no imaging seen in our system. * Brain CTA 1. Extensive nonspecific cerebral white matter disease, which likely represents chronic small vessel ischemic disease. 2. 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 3. 3 mm saccular aneurysm of anterior communicating artery. 4. Chronic sinusitis. * Blood pressure remains stable * Neurology consulted. (4) Type 2 diabetes mellitus without complications: Code(s): E11.9 - Type 2 diabetes mellitus without complications Status: Acute Assessment and Plan: - hypoglycemia protocol - POC blood glucose ACHS - home medication - none - correct regimen ordered - low dose TIDWM - A1C 6 on 02/08/14 (5) Hypothyroidism: Code(s): E03.9 - Hypothyroidism, unspecified Status: Acute Assessment and Plan: Chronic, continue home medication. - Levothyroxine 75 mcg daily (6) Dementia: Code(s): F03.90 - Unspecified dementia, unspecified severity, without behavioral disturbance, psychotic disturbance, mood disturbance, and anxiety Status: Acute Assessment and Plan: * Continue Escitalopram * Patient passed Barium swallow. * Per neurology, patients behavior problem raises the possibility of the frontal lobe dementia. (7) Tobacco abuse: Code(s): Z72.0 - Tobacco use Status: Acute Assessment and Plan: * Nicotine patch. Time Spent With Patient Time with patient: 25 - 35 minutes Subjective Date/time seen: 07/24/24 14:25 Interval history: 73-year-old male with past medical history of Alzheimer's, hypothyroidism, diet- controlled bcb-[id number] diabetes mellitus, hyperlipidemia, history of CVA, left LINA cerebral aneurysm, and tobacco use who presents to the hospital on 07/18/2024 after a fall the day prior to admission. Patient is pleasant lying comfortably in bed with his bedside. He is endorsing abdominal pain worse in the left lower quadrant. The patient has not had a bowel movement since admission. A KUB was obtained and shows adynamic ileus. She was started on a bowel regimen. He denies nausea /vomiting. He was to go to [facility] today however he remains inpatient due to the ileus. He continues to work with therapy for the compression fracture. He denies chest pain, shortness a breath, and palpitations. Review of Systems Review of Systems: All systems reviewed & are unremarkable except as noted in HPI and below Exam Narrative: AF HR 66 RR 16 SpO2 95 BP 144/60 General: male in no acute respiratory distress who is nontoxic appearing, lying semi recumbent in bed. HEENT: Normocephalic. Atraumatic. Extraocular movement intact. Sclera clear and anicteric.No facial asymmetry. Chest: Lungs are clear to auscultation bilaterally. No wheezes or crackles. CV: Heart was regular rate and rhythm. S1/S2. No murmurs, gallops, or rubs. Abd: Abdomen was soft. Tender to palpation more on the LLQ. Slightly distended. Positive bowel sounds. No organomegaly or masses. Ext: No clubbing, cyanosis, or edema. 2+ DP pulses bilaterally. Neuro: Patient is alert. Speech is clear. Objective Data Vital Signs Vital Signs: Vital Signs - 24 hr 07/23/24 19:52 07/23/24 20:00 07/24/24 06:29 Temperature 98.1 F 97.7 F Pulse Rate 71 66 Respiratory Rate 18 16 Blood Pressure 146/74 H 144/60 H Pulse Oximetry 95 95 Oxygen Delivery Room Air Intake/Output Intake/Output: Intake & Output 07/21/24 07/22/24 07/23/24 07/24/24 23:59 23:59 23:59 23:59 Intake Total 160 242 0902 520 Balance 608 559 9832 520 Meds/Results Medications: Active Medications Generic Name Dose Route Start Last Admin Trade Name Freq PRN Reason Stop Dose Admin Acetaminophen 1,000 mg 07/21/24 10:24 07/22/24 15:05 Acetaminophen 500 Mg Tablet PO 1,000 mg Q6H PRN Administration Pain 1-5 Bisacodyl 10 mg 07/24/24 14:19 Bisacodyl 10 Mg Suppository RECTAL 07/24/24 14:20 ONCE ONE Dextrose 12.5 gm 07/19/24 01:16 Dextrose 50% 25 Gm/50 Ml Syringe IV PUSH PRN PRN Hypoglycemia Protocol Escitalopram Oxalate 10 mg 07/19/24 01:15 07/23/24 19:56 Escitalopram Oxalate 10 Mg Tablet PO 10 mg HS SEPIDEH Administration Glucagon 1 mg 07/19/24 01:16 Glucagon For Inj 1 Mg Vial IM PRN PRN Hypoglycemia Protocol Glucose 15 gm 07/19/24 01:16 Glucose Oral Gel 15 Gm Of Glucse In 37.5 Gm Tube PO PRN PRN Hypoglycemia Protocol Dextrose 1,000 mls @ 100 mls/hr 07/19/24 01:16 Dextrose 5% 1,000 Ml IVPB PRN PRN Hypoglycemia Protocol Insulin Aspart 2 - 5 units 07/19/24 08:00 07/24/24 12:00 Insulin Aspart (*Bkc) 100 Units/Ml SUB-Q Not Given TIDWM SEPIDEH Protocol Insulin Aspart 1 - 2 units 07/19/24 21:00 07/23/24 20:02 Insulin Aspart (*Bkc) 100 Units/Ml SUB-Q Not Given HS SEPIDEH Protocol Levothyroxine Sodium 75 mcg 07/19/24 06:30 07/24/24 05:47 Levothyroxine Sodium 75 Mcg Tablet PO 75 mcg DAILY@0630 SEPIDEH Administration Nicotine 1 patch 07/21/24 14:25 07/24/24 09:56 Nicotine (*Pbkc) 21 Mg Patch TRANSDERM 1 patch DAILY SEPIDEH Administration Pravastatin Sodium 40 mg 07/19/24 09:00 07/24/24 09:56 Pravastatin Sodium 20 Mg Tablet PO 40 mg DAILY SEPIDEH Administration Senna/Docusate Sodium 1 tab 07/24/24 21:00 Senna/Docusate Sodium Tablet PO HS SEPIDEH Tramadol HCl 50 mg 07/21/24 10:24 07/24/24 09:56 Tramadol Hcl (*Crx) 50 Mg Tablet PO 50 mg Q6H PRN Administration Pain Rated 6 or Greater Radiology Results: ITS Impressions Head CT 07/18/24 19:09 IMPRESSION: No acute intracranial findings. Cervical Spine CT 07/18/24 19:23 IMPRESSION: No acute osseous abnormality cervical spine. Chest/Abdomen/Pelvis/Spine CT 07/18/24 19:45 IMPRESSION: CHEST: 1. No acute cardiopulmonary pathology. 2. Highly suggestive compression fracture of T12. 3. Emphysematous changes of the lungs with atelectatic changes in the lower lobes. ABDOMEN/PELVIS: 1. No evidence of solid organ injury. 2. Large right kidney upper pole and lower pole cysts 3. Highly suggestive compression fracture of L2. MRI evaluation advised. 4. Prostatic enlargement. --- CT chst ab pel thor lum w Ordering provider: Rosalee Leonard PA-C History: . fall, flank pain, back pain, abd pain . Comparison: None. Technique: CT thoracic spine without contrast. Automated exposure control and iterative reconstruction technique were employed. The dose-length product was 758.95 mGy-cm. FINDINGS: VERTEBRAE: Highly suggestive compression fracture of T12. MRI evaluation advised. Kyphosis. Otherwise, Normal height and alignment. No subluxation or visible acute fracture. Degenerative changes of the spine. DISC SPACES: Narrowing of all the disc spaces in the mid and and lower thoracic area. PARASPINOUS SOFT TISSUES: Normal. IMPRESSION: Possible compression fracture of T12 MRI evaluation advised. Multilevel degenerative disc disease. CT chst ab pel thor lum w Ordering provider: Rosalee Leonard PA-C History: 73 years Male with . fall, flank pain, back pain, abd pain . Comparison: None. Technique: CT lumbar spine without contrast. Automated exposure control and iterative reconstruction technique were employed. The dose-length product was 758.95 mGy-cm. FINDINGS: VERTEBRAE: Slight loss of height of L2 with sclerotic changes seen suggestive of compression fracture. MRI evaluation advised. Otherwise, Normal height and alignment. No subluxation or visible acute fracture. Degenerative changes of the spine. DISC SPACES: T12-L1: No stenosis. L1-L2: No stenosis. L2-L3: No stenosis. L3-L4: No stenosis. Mild diffuse disc bulge. L4-L5: No stenosis. Mild diffuse disc bulge with narrowing of the foramina. L5-S1: No stenosis. PARASPINOUS SOFT TISSUES: Mild atheromatous disease of the abdominal aorta. IMPRESSION: Possible compression fracture of L2. MRI evaluation advised. Multilevel disc bulges. Lumbar Spine MRI 07/19/24 10:11 IMPRESSION: 1. Acute versus subacute compression fractures of T12 and L2. 2. Moderate lumbar spondylosis. Thoracic Spine MRI 07/19/24 10:17 IMPRESSION: 1. Acute versus subacute T12 compression fracture. 2. Mild thoracic spondylosis. Modified Barium Swallow 07/21/24 15:13 IMPRESSION: Single episode of flash laryngeal penetration without aspiration with thin liquids. Please correlate with speech pathologist findings and specific feeding recommendations. CT Brain Angiography 07/23/24 14:31 IMPRESSION: 1. Extensive nonspecific cerebral white matter disease, which likely represents chronic small vessel ischemic disease. 2. 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 3. 3 mm saccular aneurysm of anterior communicating artery. 4. Chronic sinusitis. Abdomen X-Ray 07/24/24 12:57 IMPRESSION: 1. New distention of the colon, likely adynamic ileus. Labs Labs: Laboratory Results - last 24 hr 07/23/24 07/23/24 07/24/24 16:45 19:35 06:06 WBC 10.0 RBC 5.33 Hgb 16.9 Hct 49.0 MCV 91.9 MCH 31.7 MCHC 34.5 RDW 14.2 Plt Count 168 MPV 10.0 Immature Gran % (Auto) 0.5 Neut % (Auto) 78.9 H Lymph % (Auto) 10.1 L [place] % (Auto) 9.5 H Eos % (Auto) 0.6 Baso % (Auto) 0.4 Lymph # (Auto) 1.01 [place] # (Auto) 1.0 H Eos # (Auto) 0.1 Baso # (Auto) 0.0 Abs Immat Gran (auto) 0.05 H Absolute Neuts (auto) 7.9 H Absolute Nucleated RBC 0.000 Nucleated RBC % 0.0 Sodium 136 L Potassium 4.1 Chloride 101 Carbon Dioxide 29 Anion Gap 6 BUN 22 H Creatinine 0.80 Estim Creat Clear Calc 64 Estimated GFR > 60 Glucose 122 H POC Capillary Glucose 150 H 187 H Calcium 8.9 Total Bilirubin 1.4 H AST 26 ALT 26 Alkaline Phosphatase 74 Total Protein 7.0 Albumin 3.9 07/24/24 07/24/24 07/24/24 06:22 08:23 11:50 WBC RBC Hgb Hct MCV MCH MCHC RDW Plt Count MPV Immature Gran % (Auto) Neut % (Auto) Lymph % (Auto) [place] % (Auto) Eos % (Auto) Baso % (Auto) Lymph # (Auto) [place] # (Auto) Eos # (Auto) Baso # (Auto) Abs Immat Gran (auto) Absolute Neuts (auto) Absolute Nucleated RBC Nucleated RBC % Sodium Potassium Chloride Carbon Dioxide Anion Gap BUN Creatinine Estim Creat Clear Calc Estimated GFR Glucose POC Capillary Glucose 119 H 126 H 178 H Calcium Total Bilirubin AST ALT Alkaline Phosphatase Total Protein Albumin Quality VTE Prophylaxis VTE prophylaxis: mechanical ordered
[2024-07-24 16:32] LABS: Glucose Point of Care 174 mg/dl (65-105)
[2024-07-24] MEDS: BISACODYL 10 MG SUPPOSITORY RECTAL (16:34)
[2024-07-24 20:18] LABS: Glucose Point of Care 191 mg/dl (65-105)
[2024-07-24 20:43] VITALS: BP 143/87; PULSE 102; RESP 16; TEMP 36.1; O2SAT 95
[2024-07-24] MEDS: ESCITALOPRAM OXALATE 10 MG TABLET PO (21:14)
[2024-07-25 05:08] VITALS: BP 138/84; PULSE 71; RESP 14; TEMP 36.2; O2SAT 95
[2024-07-25] MEDS: LEVOTHYROXINE SODIUM 75 MCG TABLET PO (06:21)
[2024-07-25 08:20] LABS: Glucose Point of Care 138 mg/dl (65-105)
--- NOTE | 2024-07-25 08:50 | PCNWS ---
Weekly nutritional screen. Patient is tolerating current diet with adequate intake. No weight loss reported. No nutritional needs at this time.
[2024-07-25] MEDS: NICOTINE (*PBKC) 21 MG PATCH 1 PATCH TRANSDERM (09:10)
[2024-07-25] MEDS: PRAVASTATIN SODIUM 20 MG TABLET 40 MG PO (09:10)
[2024-07-25 09:26] LABS: Basophils Absolute Auto 0.1 K/mm3 (0.0-0.1); Basophils Percent Auto 0.6 % (0.2-1.2); Eosinophils Percent Auto 0.2 % (0-4.4); Hematocrit 52.8 % (42.0-52.0); Immature Granulocyte Absolute 0.05 K/mm3 (0.00-0.031); Immature Granulocyte Percent A 0.6 % (0-0.5); Lymphocytes Absolute Auto 1.15 K/mm3 (0.9-3.2); Lymphocytes Percent Auto 14.2 % (18.3-44.2); Mean Corpuscular HGB Conc 34.1 g/dl (32-36); Mean Corpuscular Hemoglobin 31.1 pg (26-34); Mean Corpuscular Volume 91.3 fl (80-100); Mean Platelet Volume 9.8 fl (7.4-10.4); Monocytes Absolute Auto 0.9 K/mm3 (0.1-0.6); Monocytes Percent Auto 11.1 % (2.6-8.5); Neutrophils Absolute Auto 5.9 K/mm3 (1.3-6.7); Neutrophils Percent Auto 73.3 % (45.5-73.1); Platelet Count Result 215 k/mm3 (150-375); Red Blood Count 5.78 M/mm3 (4.6-6.20); Red Cell Distribution Width 14.4 % (11.5-14.5); White Blood Count 8.1 K/mm3 (4.5-10.0)
[2024-07-25 10:04] LABS: Alanine Aminotransferase 33 U/L (6-50); Albumin Level 4.1 g/dL (3.5-5.1); Alkaline Phosphatase 86 U/L (38-126); Anion Gap 11 mmol/L (4-12); Aspartate Amino Transferase 33 U/L (17-59); Bilirubin,Total 1.8 mg/dL (0.2-1.3); Blood Urea Nitrogen 36 mg/dL (9-20); Carbon Dioxide 23 mmol/L (22-30); Chloride 101 mmol/L (98-107); Estimated CRCL calculation 72 ml/min; Estimated Glomerular Filt Rate > 60; Glucose 164 mg/dL (65-110); Potassium 4.2 mmol/L (3.4-5.0); Sodium 135 mmol/L (137-145)
--- NOTE | 2024-07-25 11:20 | P.DS_ITS ---
DS: Admitting Diagnosis Discharge Date 07/25/2024 Admitting Diagnosis Ileus compression fracture anterior communicating arterial aneurysm type 2 diabetes hypothyroid dementia tobacco use DS: Discharge Diagnosis Discharge Diagnosis (1) Ileus: Code(s): K56.7 - Ileus, unspecified Status: Acute (2) Compression fracture: Status: Acute (3) Anterior communicating artery aneurysm: Code(s): I67.1 - Cerebral aneurysm, nonruptured Status: Acute (4) Type 2 diabetes mellitus without complications: Code(s): E11.9 - Type 2 diabetes mellitus without complications Status: Acute (5) Hypothyroidism: Code(s): E03.9 - Hypothyroidism, unspecified Status: Acute (6) Dementia: Code(s): F03.90 - Unspecified dementia, unspecified severity, without behavioral disturbance, psychotic disturbance, mood disturbance, and anxiety Status: Acute (7) Tobacco abuse: Code(s): Z72.0 - Tobacco use Status: Acute DS: Summary Hospital Course Reason for hospitalization: Ileus compression fracture anterior communicating arterial aneurysm type 2 diabetes hypothyroid dementia tobacco use Hospital Course: 73-year-old male with past medical history of Alzheimer's, hypothyroidism, diet- controlled lol-oifgdzt-zsohmwjfa diabetes mellitus, hyperlipidemia, history of CVA, left LINA cerebral aneurysm, and tobacco use who presents to the hospital on 07/18/2024 after a fall the day prior to admission. Head CT without acute intracranial findings. Cervical spine CT without acute osseous findings. CT chest abdomen pelvis spine suspect for compression fracture of T12 and L2. MRI lumbar today showed acute versus subacute compression fractures of T12 and L2. Moderate lumbar spondylosis. MRI thoracic showed acute versus subacute T12 compression fracture. Mild thoracic spondylosis. Neurosurgery consulted, saw patient, and contacted [employer] to fit him for an TLSO brace. Per neurosurgery he can wear this when out of bed. He does not need to wear it in bed unless it is more comfortable for him. Plan for neurosurgery follow up outpatient. Per chart review, Dr. Luciano was told on 02/26/24 that the patient had a 4 mm left LINA cerebral aneurysm and was to follow up in a year or so. Unknown when diagnosed with aneurysm and no imaging seen in our system. Neurology was consulted. Brain CTA shows stable aneurysm. Discussed findings with patient and his and they state understanding and that they will continue following this in the outpatient setting. On 07/24 patient abdomen was tender to palpation more on the LLQ. Slightly distended. He has not had a bowel movement since admission. KUB shows adyanmic ileus. Started on a bowel regimen and had a BM. At time of discharge patient had no abdominal pain or tenderness, no nausea/vomiting and was tolerating a diet. Patient also denies chest pain, shortness and breath and palpitations. patient discharged in a stable condition to [facility]. Follow up with his primary care provider in 1 week. Follow up with Neurosurgery call for an appointment. Status at Discharge Functional status at discharge: uses cane/walker Time Spent with Patient Time attestation: Total time spent providing and/or coordinating discharge services: Time spent: Greater than 30 minutes Exam Narrative: AF HR 71 RR 14 SpO2 95 BP 138/84 General: male in no acute respiratory distress who is nontoxic appearing, lying semi recumbent in bed. HEENT: Normocephalic. Atraumatic. Extraocular movement intact. Sclera clear and anicteric.No facial asymmetry. Chest: Lungs are clear to auscultation bilaterally. No wheezes or crackles. CV: Heart was regular rate and rhythm. S1/S2. No murmurs, gallops, or rubs. Abd: Abdomen was soft. Nontender to palpation. Positive bowel sounds. No organomegaly or masses. Ext: No clubbing, cyanosis, or edema. 2+ DP pulses bilaterally. Neuro: Patient is alert. Speech is clear. DS: Data Data Completed and Pending Completed studies during hospitalization: Abdomen XR CT brain angio Labs on day of discharge: Labs from last 24 hours 07/25/24 07/25/24 07/24/24 09:19 08:07 19:32 WBC 8.1 RBC 5.78 Hgb 18.0 Hct 52.8 H MCV 91.3 MCH 31.1 MCHC 34.1 RDW 14.4 Plt Count 215 MPV 9.8 Immature Gran % (Auto) 0.6 H Neut % (Auto) 73.3 H Lymph % (Auto) 14.2 L [place] % (Auto) 11.1 H Eos % (Auto) 0.2 Baso % (Auto) 0.6 Lymph # (Auto) 1.15 [place] # (Auto) 0.9 H Eos # (Auto) 0.0 Baso # (Auto) 0.1 Abs Immat Gran (auto) 0.05 H Absolute Neuts (auto) 5.9 Absolute Nucleated RBC 0.000 Nucleated RBC % 0.0 Sodium 135 L Potassium 4.2 Chloride 101 Carbon Dioxide 23 Anion Gap 11 BUN 36 H D Creatinine 0.70 Estim Creat Clear Calc 72 Estimated GFR > 60 Glucose 164 H POC Capillary Glucose 138 H 191 H Calcium 9.0 Total Bilirubin 1.8 H AST 33 ALT 33 Alkaline Phosphatase 86 Total Protein 8.0 Albumin 4.1 07/24/24 07/24/24 16:21 11:50 WBC RBC Hgb Hct MCV MCH MCHC RDW Plt Count MPV Immature Gran % (Auto) Neut % (Auto) Lymph % (Auto) [place] % (Auto) Eos % (Auto) Baso % (Auto) Lymph # (Auto) [place] # (Auto) Eos # (Auto) Baso # (Auto) Abs Immat Gran (auto) Absolute Neuts (auto) Absolute Nucleated RBC Nucleated RBC % Sodium Potassium Chloride Carbon Dioxide Anion Gap BUN Creatinine Estim Creat Clear Calc Estimated GFR Glucose POC Capillary Glucose 174 H 178 H Calcium Total Bilirubin AST ALT Alkaline Phosphatase Total Protein Albumin Discharge Plan Discharge Attending physician on discharge: Adelaide Cantu Consulting providers: Vivian Grimm; Lito Askew Discharging Clinician: Chyna Harris Anticipated Discharge Date/Time: 07/25/24 11:17 Patient Disposition: SNF Activity: as tolerated Diet: as tolerated and heart healthy Discharge Instructions: Discharge disposition: Patient admitted to the hospital following a fall Imaging revealed compression fractures of T12 and L2 Neurosurgery was consulted and patients was placed in an TLSO brace He should wear the TLSO brace when out of bed. He does not need to wear it in bed unless it is more comfortable for him. Continue working with therapy Follow up with neurosurgery outpatient Patient has history of an anterior communicating artery cerebral aneurysm Brain CTA was obtained and showed aneurysm remains stable Neurology was consulted and no interventions are required at this time Continue outpatient follow up of this aneurysm Maintain well controlled blood pressures Patient developed an adynamic ileus on imaging Started on a bowel regimen and has since had several bowel movements, tolerating diet well. Monitor stool output Take caution while standing, rising, or moving Change positions slowly taking a break between each position change If you standing feel dizzy sat back down and take a break Encouraged to continue with yearly vaccinations Return to the emergency department if he developed sudden shortness of breath, chest pain, nausea, vomiting, upset stomach or intractable diarrhea Return to the emergency department if you develop fever greater than 101.5 Follow-up with the primary care physician within 1 weeks Thank you for [facility] for your healthcare needs Patient Instructions: How to Stop Smoking (DC), Vertebral Compression Fracture (DC), Thoracolumbosacral Orthosis (DC) Patient Language: Grenadian Stand Alone Forms: General Discharge Information Follow-up/Referrals: Louis Sena MD [Primary Care Provider] - 1 Week Vivian Grimm MD [Physician] - Call for Appointment Discharge Medications: Continued escitalopram oxalate 10 mg tablet 10 mg PO HS pravastatin 40 mg tablet 40 mg PO DAILY Qty: 90 2RF levothyroxine [Synthroid] 75 mcg tablet 75 mcg PO DAILY Qty: 90 2RF Date of admission: 07/19/24 15:26 Primary Care Provider: Louis Sena Admitting Provider: Cecilia Pierce Attending physician on admission: Chyna Harris Condition: Stable
[2024-07-25 11:50] LABS: Glucose Point of Care 201 mg/dl (65-105)
[2024-07-25] MEDS: INSULIN ASPART (*BKC) 100 UNITS/ML SUB-Q (12:09)
== END 2024-07-25 13:02 | disposition home or self-care (01) | DRG 552 ==
LOC: ANHED 18:46 → ANH2MED 23:56
PROVIDERS: Nurse Practitioner Family; Student in an Organized Health Care Education/Training Program; Admitting Provider General Practice; Emergency Provider Physician Assistant; PCP Family Medicine; Visit Provider General Practice
DX: S32.020A Wedge compression fracture of second lumbar vertebra, initial encounter for closed fracture (principal); S22.080A Wedge compression fracture of T11-T12 vertebra, initial encounter for closed fracture; F02.818 Dementia in other diseases classified elsewhere, unspecified severity, with other behavioral disturbance; K56.0 Paralytic ileus; G30.9 Alzheimer's disease, unspecified; W19.XXXA Unspecified fall, initial encounter; I67.1 Cerebral aneurysm, nonruptured; M47.816 Spondylosis without myelopathy or radiculopathy, lumbar region; E03.9 Hypothyroidism, unspecified; E11.9 Type 2 diabetes mellitus without complications; E78.5 Hyperlipidemia, unspecified; Z98.49 Cataract extraction status, unspecified eye; Z86.73 Personal history of transient ischemic attack (TIA), and cerebral infarction without residual deficits
CPT/HCPCS: 36415; 70450; 70496; 71260; 72125; 72129; 72132; 72146; 72148; 74018; 74177; 80053; 81001; 82948; 83735; 85025; 85055; 85610; 85730; 87637; 92610; 92611; 93005; 96374; 97110; 97161; 97165; 97530; 97535; 99285; A9270; G0378; J1815; J1885; Q9967

== ENCOUNTER 2024-09-04 10:22 | Emergency (ER) | payer MEDICARE, OTHER, SELFPAY ==
--- NOTE | ~2024-09-04 | CT_ITS ---
CT Scan of the Chest without Contrast: Clinical Indication: Rib pain, status post fall Technique: Contiguous sections were acquired throughout the chest without intravenous contrast. Dose reduction technique was used on this scan by utilizing automated exposure control and iterative recon struction technique. The dose-length product (DLP) was 236.12 mGy-cm. COMPARISON: 09/06/2023 Findings: There is no evidence of any significant mediastinal, hilar or axillary lymphadenopathy. Extensive cor onary artery calcifications are present. There is no evidence of pleural or pericardial effusion. There is moderate to advanced emphysema, especially upper lobes. There is bibasilar curvilinear scarr ing. Calcified right basilar granulomas are noted. Images through the upper abdomen reveal no abnormalities. There is acute to subacute fracture at the lateral left 10th rib. There is T12 compression fracture, acute. Impression: Probable acute, moderate T12 compression fracture. Acute to subacute fracture of the lateral left 10th rib. Moderate to advanced emphysema. Reviewed, dictated and finalized at [facility]. SIT MIXER OPERATOR Impression: Probable acute, moderate T12 compression fracture. Acute to subacute fracture of the lateral left 10th rib. Moderate to advanced emphysema.
--- NOTE | ~2024-09-04 | CT_ITS ---
Noncontrast CT scan of the cervical spine Technique: Multiple contiguous axial [address] images of the cervical spine were obtained and rec onstructed in 2D sagittal and coronal planes on the acquisition scanner. Dose reduction technique was used on this scan by utilizing automated exposure control, adjustment of the mA and/or kV according to patient size. The dose-length product (DLP) was 385.26 mGy-cm. Clinical History: Pain Findings: No fractures or dislocations. There is fusion of the right C3-C4 and C4-C5 facet joints. T here is advanced degenerative disc narrowing at C3-C4. There is mild degenerative disc narrowing in t he remainder of the cervical spine. There is severe facet arthropathy at the left side at C2-C3 and C 3-C4. There is right neural foraminal narrowing at C3-C4. No prevertebral soft tissue swelling. Advanced emphysema noted the lung apices. Impression: No fracture or subluxation of the cervical spine. Degenerative changes, as above. Reviewed, dictated and finalized at location . NG FINISHER Impression: No fracture or subluxation of the cervical spine. Degenerative changes, as above.
--- NOTE | ~2024-09-04 | XR_ITS ---
EXAMINATION: XR shoulder LT min 2V DATE: 09/04/2024 11:26 INDICATION: Left shoulder pain post fall TECHNIQUE: AP internally and externally rotated, AP oblique externally rotated and transscapular Y vi ews of the left shoulder were obtained. COMPARISON: None FINDINGS: Normal alignment. No fracture.Mild glenohumeral and moderate acromioclavicular osteoarthritis. Small calcified nodule at the left apex consistent with old granulomatous disease. Soft tissues are unrema rkable. IMPRESSION: Mild left glenohumeral and moderate acromioclavicular osteoarthritis. No acute osseous abnormality. Reviewed, dictated and finalized at location A. MACHINE OPERATOR
--- NOTE | ~2024-09-04 | XR_ITS ---
EXAMINATION: XR hip LT 2V w AP pelvis DATE: 09/04/2024 11:26 INDICATION: Left hip pain post fall TECHNIQUE: Anteroposterior view of the pelvis and anteroposterior and frog-leg lateral views of the l eft hip were obtained. COMPARISON: 11/22/2023 FINDINGS: Alignment is normal. No acute fracture. Internal fixation of a prior intertrochanteric fracture the p roximal femur with antegrade intramedullary lashawn with a pair of femoral neck screws and distal interlo cking screw. Mild degenerative skeletal changes in the shortest lower lumbar spine and at the bilater al hip and sacroiliac joints. Prostatic calcifications. Atherosclerotic calcific lesions in the pelvi s and proximal thighs. IMPRESSION: 1. Old healed internally fixed proximal left humeral fracture which is in essentially anatomic alignm ent. No acute osseous abnormality. Reviewed, dictated and finalized at location A. L PICKLER IMPRESSION: 1. Old healed internally fixed proximal left humeral fracture which is in [facility] anatomic alignment. No acute osseous abnormality.
--- NOTE | ~2024-09-04 | CT_ITS ---
EXAMINATION: CT brain wo con DATE: 09/04/2024 11:08 INDICATION: Fall with possible head injury TECHNIQUE: Computed tomography (CT) of the head was performed without intravenous contrast. Sagittal and coronal reconstructions were performed. The mA was adjusted according to patient size. Iterative reconstruction technique was employed. The dose-length product was 681.00 mGy-cm. COMPARISON: head CT dated 07/23/2024 FINDINGS: No fracture. No acute intracranial hemorrhage, acute infarction or abnormal extra axial fluid collect ion. There is extensive scattered white matter hypoattenuation consistent with chronic small vessel i schemic disease. Symmetric prominence of the sulci consistent with mild age-appropriate diffuse cereb ral volume loss. Ventricles are normal and symmetric. No mass/mass effect. Partially opacities in the left maxillary sinus which demonstrates thickened chronic gr consistent with chronic sinusitis. T here is been prior antral window procedures with resection of portions of the medial wall the left ma xillary sinus. Additional mild mucosal thickening the bilateral ethmoid sinuses. Changes of bilateral intraocular lens replacement. The orbits and mastoid air cells are normal. IMPRESSION: 1. No fracture or acute intracranial process. 2. Age-related changes including mild diffuse volume loss and extensive scattered white matter hypoat tenuation consistent with chronic small vessel ischemic disease. Reviewed, dictated and finalized at location A. CONDITIONING INSULATION INSTALLER IMPRESSION: 1. No fracture or acute intracranial process. 2. Age-related changes including mild diffuse volume loss and extensive scatter ed white matter hypoattenuation consistent with chronic small vessel ischemic d isease.
--- NOTE | ~2024-09-04 | CT_ITS ---
Noncontrast CT scan of the lumbar spine CLINICAL HISTORY: Back pain, status post fall TECHNIQUE: Axial noncontrast imaging of the lumbar spine was performed. Sagittal and coronal reformat donny images were constructed. Dose reduction technique was used on this scan by utilizing automated ex posure control and iterative reconstruction technique. The dose-length product (DLP) was 415.25 mGy-c m. FINDINGS: There is acute, moderate severity compression fracture of T12. No fracture or subluxation s een in the lumbar spine itself. Probable chronic Schmorl's node at the superior endplate of L2. At L1-L2, there is no disc bulge or herniation. No spinal canal stenosis. Probable moderate bilateral neural foraminal narrowing with mild facet arthropathy present. At L2-L3, there is minimal disc bulge. No spinal canal stenosis. There is probable moderate bilateral neural foraminal narrowing. At L3-L4, there is mild to moderate degenerative disc narrowing. There is mild disc bulge and mild fa cet arthropathy. No central canal stenosis. There is moderate to advanced right neural foraminal narr owing, and moderate left neural foraminal narrowing. At L4-L5, there is mild disc bulge. There is moderate facet arthropathy. No hieu central canal steno sis. There is moderate to severe right neural foraminal narrowing, and moderate left neural foraminal narrowing. At L5-S1, there is minimal disc bulge. There is moderate facet arthropathy. No central canal stenosis . There is advanced bilateral neural foraminal narrowing. Paravertebral soft tissues are unremarkable. Impression: Acute compression fracture of T12, as above. Moderate degenerative spondylosis of the lumbar spine, as above. Reviewed, dictated and finalized at location M. NT ACQUISITION CONSULTANT Impression: Acute compression fracture of T12, as above. Moderate degenerative spondylosis of the lumbar spine, as above.
[2024-09-04 10:14] VITALS: BP 134/92; PULSE 60; RESP 16; TEMP 36.5; O2SAT 97
--- NOTE | 2024-09-04 10:35 | ED.FALL ---
HPI - Fall General Chief Complaint: Fall <Kayode Estes PA-C - Last Filed: 09/04/24 17:26> Stated Complaint: L arm/L hip pain <Kayode Estes PA-C - Last Filed: 09/04/24 17:26> Time Seen by Provider: 09/04/24 10:32 <Kayode Estes PA-C - Last Filed: 09/04/24 17:26> Source: patient <Kayode Estes PA-C - Last Filed: 09/04/24 17:26> Mode of arrival: EMS <JUDITH Sarabia Last Filed: 09/04/24 17:26> Limitations: dementia <Kayode Estes PA-C - Last Filed: 09/04/24 17:26> History of Present Illness HPI Narrative: This is a 73-year-old male who presents to the ED for chief complaint of a [facility] He has a history of dementia and is at his mental status baseline. Patient reports that his left hip hurts. He denies any other injury. History limited due to dementia <Kayode Estes PA-C - Last Filed: 09/04/24 17:26> Related Data Home Medications: Home Medications ?Medication ?Instructions ?Recorded ?Confirmed ?Last Taken ?Type escitalopram oxalate 10 mg tablet 10 mg PO HS 07/19/24 08/05/24 07/17/24 History <Kayode Estes PA-C - Last Filed: 09/04/24 17:26> Allergies/Adverse Reactions: Allergies Allergy/AdvReac Type Severity Reaction Status Date / Time Penicillins Allergy Unknown Rash Verified 07/18/24 17:59 <Kayode Estes PA-C - Last Filed: 09/04/24 17:26> Review of Systems Review of Systems: All systems as dictated in HPI <Kayode Estes PA-C - Last Filed: 09/04/24 17:26> [facility] Past Medical History Medical History: Medical History 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 Dizziness History of stroke with current residual effects Hypothyroidism Status post CVA Type 2 diabetes mellitus without complications <Kayode Estes PA-C - Last Filed: 09/04/24 17:26> Surgical History Surgical History: Surgical History H/O cataract extraction Hx of fracture of left hip s/p ORIF <Kayode Estes PA-C - Last Filed: 09/04/24 17:26> Family History Family History: Family History Father Family history of lung cancer Family history of congestive heart failure <Kayode Estes PA-C - Last Filed: 09/04/24 17:26> Social History Social History: Social History Years smoked: 20 Smoking status: Current every day smoker Tobacco type: cigarettes Second hand tobacco smoke exposure: No Alcohol intake: never Substance use: never Substance use type: does not use Do You Feel Safe in your Home?: Yes Lack of Transportation: No Lack of Food: Never True Current Housing: I Have Housing Concerned About Future Housing: No Difficulty Paying Gas/Electric Bills: No Difficulty Paying for Meds: No Currently Unemployed: No Education: Trade/Vocational Certificate Difficulty w/ Childcare or Family Care: No Living arrangements: with family Occupation/Education: retired Gender identity (if verbalized by the patient): Male Spiritual care concerns: No <Kayode Estes PA-C - Last Filed: 09/04/24 17:26> Exam Narrative: GENERAL: Well-appearing, well-nourished, and in no acute distress. HEAD: Normocephalic, atraumatic. EYES: PERRLA and EOMI. ENT: Nares clear, no rhinorrhea or epistaxis. Mucous membranes moist. Oropharynx without tonsillar hypertrophy exudate or other lesions. NECK: Supple. No adenopathy or masses. CHEST: No respiratory distress. Clear to auscultation. No wheezes rales or rhonchi HEART: Regular rate and rhythm. No murmur heard. Normal peripheral pulses. ABDOMEN: Soft, nontender, nondistended, normal active bowel sounds. MSK: Mild tenderness to the left lateral hip and left shoulder. Range of motion intact throughout all joints. No midline spinal tenderness. SKIN: Warm, dry, no rash. NEURO: Alert and oriented x2, at baseline. No focal deficits. PSYCH: Normal mood and affect. <Kayode Estes PA-C - Last Filed: 09/04/24 17:26> Course TOOTH CLERK/PA Physician Supervision I agree with midlevel documentation; I performed the medical decision making component of this evaluation. <Ashley Mitchell MD - Last Filed: 09/04/24 18:14> Vital Signs Vital signs: Vital Signs Temperature 97.7 F 09/04/24 10:14 Pulse Rate 60 09/04/24 10:14 Respiratory Rate 16 09/04/24 10:14 Blood Pressure 134/92 H 09/04/24 10:14 Pulse Oximetry 97 09/04/24 10:14 Oxygen Delivery Room Air 09/04/24 10:14 Temperature 97.7 F 09/04/24 10:14 Pulse Rate 60 09/04/24 10:14 Respiratory Rate 16 09/04/24 10:14 Blood Pressure 134/92 H 09/04/24 10:14 Pulse Oximetry 97 09/04/24 10:14 Oxygen Delivery Room Air 09/04/24 10:14 <Kayode Estes PA-C - Last Filed: 09/04/24 17:26> Vital Signs Temperature 97.7 F 09/04/24 10:14 Pulse Rate 60 09/04/24 10:14 Respiratory Rate 16 09/04/24 10:14 Blood Pressure 134/92 H 09/04/24 10:14 Pulse Oximetry 97 09/04/24 10:14 Oxygen Delivery Room Air 09/04/24 10:14 Temperature 97.7 F 09/04/24 10:14 Pulse Rate 60 09/04/24 10:14 Respiratory Rate 16 09/04/24 10:14 Blood Pressure 134/92 H 09/04/24 10:14 Pulse Oximetry 97 09/04/24 10:14 Oxygen Delivery Room Air 09/04/24 10:14 <Ashley Mitchell MD - Last Filed: 09/04/24 18:14> MDM - Fall MDM Narrative Medical decision making narrative: This is a 73-year-old male who presents to the ED for chief complaint of left-sided pain after a fall 4 days ago. Vitals are normal. Exam shows mild tenderness to the left shoulder, left lateral hip. Lab work unremarkable. X-ray imaging of the left hip, pelvis and left shoulder are unremarkable for acute findings. Chest CT and lumbar spine CT are revealing of a acute left 9th rib fracture and acute T12 compression fracture. Otherwise exam and imaging are unremarkable. Patient's is bedside and does not feel that she can take care patient home. She feels that he needs to be in a place with physical therapy and closer medical attention. Discussed with care coordination who was able to get patient back into [facility] where he was just discharged from recently. Patient will be transferred in stable condition and written orders for neurosurgery recheck were given for they T12 fracture. He was also given incentive spirometry orders for rib fracture. <Kayode Estes PA-C - Last Filed: 09/04/24 17:26> Lab Data Result diagrams: 09/04/24 12:42 09/04/24 12:42 <Kayode Estes PA-C - Last Filed: 09/04/24 17:26> Labs: Lab Results 09/04/24 Range/Units 12:42 WBC 5.8 (4.5-10.0) K/mm3 RBC 4.96 (4.6-6.20) M/mm3 Hgb 15.5 (14.0-18.0) g/dL Hct 46.5 (42.0-52.0) % MCV 93.8 (80-100) fl MCH 31.3 (26-34) pg MCHC 33.3 (32-36) g/dl RDW 14.7 H (11.5-14.5) % Plt Count 153 (150-375) k/mm3 MPV 9.3 (7.4-10.4) fl Immature Gran % (Auto) 0.3 (0-0.5) % Neut % (Auto) 62.7 (45.5-73.1) % Lymph % (Auto) 24.1 (18.3-44.2) % Cassia % (Auto) 10.4 H (2.6-8.5) % Eos % (Auto) 1.6 (0-4.4) % Baso % (Auto) 0.9 (0.2-1.2) % Lymph # (Auto) 1.39 (0.9-3.2) K/mm3 Cassia # (Auto) 0.6 (0.1-0.6) K/mm3 Eos # (Auto) 0.1 (0-0.3) K/mm3 Baso # (Auto) 0.1 (0.0-0.1) K/mm3 Abs Immat Gran (auto) 0.02 (0.00-0.031) K/mm3 Absolute Neuts (auto) 3.6 (1.3-6.7) K/mm3 Absolute Nucleated RBC 0.000 (0.0-0.012) K/mm3 Nucleated RBC % 0.0 (0.0-0.2) % PT 14.9 H (11.1-14.7) Seconds INR 1.1 APTT 81.2 H (22.3-36.8) Seconds Sodium 139 (137-145) mmol/L Potassium 4.1 (3.4-5.0) mmol/L Chloride 107 (98-107) mmol/L Carbon Dioxide 33 H (22-30) mmol/L Anion Gap -1 L (4-12) mmol/L BUN 19 D (9-20) mg/dL Creatinine 0.70 (0.7-1.3) mg/dL Estim Creat Clear Calc 72 ml/min Estimated GFR > 60 (59 - ) Glucose 99 (65-110) mg/dL Calcium 8.8 (8.4-10.2) mg/dL Total Bilirubin 0.8 (0.2-1.3) mg/dL AST 24 (17-59) U/L ALT 25 (6-50) U/L Alkaline Phosphatase 93 (38-126) U/L Total Protein 7.0 (6.3-8.2) g/dL Albumin 3.8 (3.5-5.1) g/dL <Kayode Estes PA-C - Last Filed: 09/04/24 17:26> Lab Results 09/04/24 Range/Units 12:42 WBC 5.8 (4.5-10.0) K/mm3 RBC 4.96 (4.6-6.20) M/mm3 Hgb 15.5 (14.0-18.0) g/dL Hct 46.5 (42.0-52.0) % MCV 93.8 (80-100) fl MCH 31.3 (26-34) pg MCHC 33.3 (32-36) g/dl RDW 14.7 H (11.5-14.5) % Plt Count 153 (150-375) k/mm3 MPV 9.3 (7.4-10.4) fl Immature Gran % (Auto) 0.3 (0-0.5) % Neut % (Auto) 62.7 (45.5-73.1) % Lymph % (Auto) 24.1 (18.3-44.2) % Cassia % (Auto) 10.4 H (2.6-8.5) % Eos % (Auto) 1.6 (0-4.4) % Baso % (Auto) 0.9 (0.2-1.2) % Lymph # (Auto) 1.39 (0.9-3.2) K/mm3 Cassia # (Auto) 0.6 (0.1-0.6) K/mm3 Eos # (Auto) 0.1 (0-0.3) K/mm3 Baso # (Auto) 0.1 (0.0-0.1) K/mm3 Abs Immat Gran (auto) 0.02 (0.00-0.031) K/mm3 Absolute Neuts (auto) 3.6 (1.3-6.7) K/mm3 Absolute Nucleated RBC 0.000 (0.0-0.012) K/mm3 Nucleated RBC % 0.0 (0.0-0.2) % PT 14.9 H (11.1-14.7) Seconds INR 1.1 APTT 81.2 H (22.3-36.8) Seconds Sodium 139 (137-145) mmol/L Potassium 4.1 (3.4-5.0) mmol/L Chloride 107 (98-107) mmol/L Carbon Dioxide 33 H (22-30) mmol/L Anion Gap -1 L (4-12) mmol/L BUN 19 D (9-20) mg/dL Creatinine 0.70 (0.7-1.3) mg/dL Estim Creat Clear Calc 72 ml/min Estimated GFR > 60 (59 - ) Glucose 99 (65-110) mg/dL Calcium 8.8 (8.4-10.2) mg/dL Total Bilirubin 0.8 (0.2-1.3) mg/dL AST 24 (17-59) U/L ALT 25 (6-50) U/L Alkaline Phosphatase 93 (38-126) U/L Total Protein 7.0 (6.3-8.2) g/dL Albumin 3.8 (3.5-5.1) g/dL <Ashley Mitchell MD - Last Filed: 09/04/24 18:14> Discharge Plan Discharge Clinical Impression: Closed T12 fracture, Left rib fracture <Kayode Estes PA-C - Last Filed: 09/04/24 17:26> Patient Disposition: [facility] <Kayode Estes PA-C - Last Filed: 09/04/24 17:26> Condition: Stable <Kayode Estes PA-C - Last Filed: 09/04/24 17:26> Instructions: Antibiotic Form <Kayode Estes PA-C - Last Filed: 09/04/24 17:26> Additional Instructions: Exam and imaging today showed acute compression fracture of T12 and left 9th rib fracture. Please use incentive spirometer for the rib fracture. Follow-up with Neurosurgery regarding the spine. If you have any new or worsening symptoms please return to the ER for further evaluation. <Kayode Estes PA-C - Last Filed: 09/04/24 17:26> Patient Language: Citizen Of [place] <Kayode Estes PA-C - Last Filed: 09/04/24 17:26> Prescriptions: No Action escitalopram oxalate 10 mg tablet 10 mg PO HS pravastatin 40 mg tablet 40 mg PO DAILY Qty: 90 2RF levothyroxine [Synthroid] 75 mcg tablet 75 mcg PO DAILY Qty: 90 2RF buspirone 5 mg tablet 5 mg PO BID Qty: 180 1RF tramadol 50 mg tablet 50 mg PO Q6H PRN (Reason: pain) Qty: 30 0RF <Kayode Estes PA-C - Last Filed: 09/04/24 17:26> Follow-up/Referrals: Louis Sena MD [Primary Care Provider] - <Kayode Estes PA-C - Last Filed: 09/04/24 17:26> Time of Disposition: 15:55 <Kayode Estes PA-C - Last Filed: 09/04/24 17:26> 15:55 <Ashley Mitchell MD - Last Filed: 09/04/24 18:14>
[2024-09-04] MEDS: ACETAMINOPHEN 325 MG TABLET 650 MG PO (11:59)
[2024-09-04 12:48] LABS: Basophils Absolute Auto 0.1 K/mm3 (0.0-0.1); Basophils Percent Auto 0.9 % (0.2-1.2); Eosinophils Absolute Auto 0.1 K/mm3 (0-0.3); Eosinophils Percent Auto 1.6 % (0-4.4); Hematocrit 46.5 % (42.0-52.0); Hemoglobin 15.5 g/dL (14.0-18.0); Immature Granulocyte Absolute 0.02 K/mm3 (0.00-0.031); Immature Granulocyte Percent A 0.3 % (0-0.5); Lymphocytes Absolute Auto 1.39 K/mm3 (0.9-3.2); Lymphocytes Percent Auto 24.1 % (18.3-44.2); Mean Corpuscular HGB Conc 33.3 g/dl (32-36); Mean Corpuscular Hemoglobin 31.3 pg (26-34); Mean Corpuscular Volume 93.8 fl (80-100); Mean Platelet Volume 9.3 fl (7.4-10.4); Monocytes Absolute Auto 0.6 K/mm3 (0.1-0.6); Monocytes Percent Auto 10.4 % (2.6-8.5); Neutrophils Absolute Auto 3.6 K/mm3 (1.3-6.7); Neutrophils Percent Auto 62.7 % (45.5-73.1); Platelet Count Result 153 k/mm3 (150-375); Red Blood Count 4.96 M/mm3 (4.6-6.20); Red Cell Distribution Width 14.7 % (11.5-14.5); White Blood Count 5.8 K/mm3 (4.5-10.0)
[2024-09-04 13:01] LABS: INR 1.1; Prothrombin Time 14.9 Seconds (11.1-14.7)
[2024-09-04 13:03] LABS: Partial Thromboplastin Time 81.2 Seconds (22.3-36.8)
[2024-09-04 13:06] LABS: Alanine Aminotransferase 25 U/L (6-50); Albumin Level 3.8 g/dL (3.5-5.1); Alkaline Phosphatase 93 U/L (38-126); Anion Gap -1 mmol/L (4-12); Aspartate Amino Transferase 24 U/L (17-59); Bilirubin,Total 0.8 mg/dL (0.2-1.3); Blood Urea Nitrogen 19 mg/dL (9-20); Calcium 8.8 mg/dL (8.4-10.2); Carbon Dioxide 33 mmol/L (22-30); Chloride 107 mmol/L (98-107); Estimated CRCL calculation 72 ml/min; Estimated Glomerular Filt Rate > 60; Glucose 99 mg/dL (65-110); Potassium 4.1 mmol/L (3.4-5.0); Sodium 139 mmol/L (137-145)
--- NOTE | 2024-09-04 13:30 | PC.NURSE ---
PT IS REFUSING TO URINATE AND IS REFUSING TO BE STRAIGHT CATHED. MINDY CHANG MADE AWARE.
--- NOTE | 2024-09-04 13:48 | PCCCNOTE ---
Called to the ED regarding placement for pt. He was discharged from [facility] in [place], August 18, 2024. Due to his falls and dementia, his is having a difficult time caring for him. They prefer to go to [facility], [place] or [place]. [place] does not have a bed at this time. Pt information faxed to Sandra at [facility] awaiting return call.
[2024-09-04 14:00] VITALS: BP 110/70; PULSE 100; RESP 16; O2SAT 97
--- NOTE | 2024-09-04 16:09 | PCCCNOTE ---
Pt going to [facility] in [facility] information faxed to them.
[2024-09-04 16:30] VITALS: BP 110/76; PULSE 60; RESP 16; O2SAT 97
== END 2024-09-04 17:00 ==
PROVIDERS: Emergency Provider Physician Assistant; PCP Family Medicine
DX: S22.080A Wedge compression fracture of T11-T12 vertebra, initial encounter for closed fracture (principal); S22.32XA Fracture of one rib, left side, initial encounter for closed fracture; G30.9 Alzheimer's disease, unspecified; F02.818 Dementia in other diseases classified elsewhere, unspecified severity, with other behavioral disturbance; E03.9 Hypothyroidism, unspecified; E11.9 Type 2 diabetes mellitus without complications; I69.30 Unspecified sequelae of cerebral infarction; F17.210 Nicotine dependence, cigarettes, uncomplicated; Z98.49 Cataract extraction status, unspecified eye; M47.816 Spondylosis without myelopathy or radiculopathy, lumbar region; M19.012 Primary osteoarthritis, left shoulder; J43.9 Emphysema, unspecified; Z79.899 Other long term (current) drug therapy; W19.XXXA Unspecified fall, initial encounter
CPT/HCPCS: 36415; 70450; 71250; 72125; 72131; 73030; 73502; 80053; 85025; 85610; 85730; 99284; A9270

== ENCOUNTER 2024-09-11 11:09 | Emergency (ER) | payer MEDICARE, OTHER, SELFPAY ==
--- NOTE | ~2024-09-11 | CT_ITS ---
EXAMINATION: CT brain wo con DATE: 09/11/2024 12:29 INDICATION: Fall with head injury TECHNIQUE: Computed tomography (CT) of the head was performed without intravenous contrast. Sagittal and coronal reconstructions were performed. The mA was adjusted according to patient size. Iterative reconstruction technique was employed. The dose-length product was 605.33 mGy-cm. COMPARISON: head CT dated 09/04/2024 FINDINGS: No fracture. Small right posterior frontal lobe intraparenchymal hemorrhage measuring 1.5 x 1.2 x 0.6 cm. No acute intracranial hemorrhage, acute infarction or abnormal extra axial fluid collection. The re is extensive scattered white matter hypoattenuation consistent with chronic small vessel ischemic disease. Symmetric prominence of the sulci consistent with mild age-appropriate diffuse cerebral volu me loss. Ventricles are normal and symmetric. No mass/mass effect. Changes of bilateral intraocular l ens replacement. Prominent mucosal thickening the left maxillary sinus with thickened sclerotic gr suggestive of chronic sinusitis and postoperative change of interval window procedure with resection of the portion of the medial wall. Intracranial calcified cerebral atherosclerosis is noted. IMPRESSION: 1. Small intraparenchymal hemorrhage in the right frontal lobe. Dr. Gutiérrez discussed these findings with Dr. Finney at 12:53 PM. 2. Age-related changes including mild diffuse volume loss and extensive scattered white matter hypoat tenuation consistent with chronic small vessel ischemic disease. Reviewed, dictated and finalized at location A. IMPROVEMENT CONTRACTOR IMPRESSION: 1. Small intraparenchymal hemorrhage in the right frontal lobe. Dr. Gutiérrez di scussed these findings with Dr. Finney at 12:53 PM. 2. Age-related changes including mild diffuse volume loss and extensive scatter ed white matter hypoattenuation consistent with chronic small vessel ischemic d isease.
--- NOTE | ~2024-09-11 | XR_ITS ---
AP view of the pelvis and AP and lateral views of the left hip Clinical history: Pain COMPARISON: 09/04/2024 Findings: No acute fracture or dislocation is seen. Status post prior ORIF of the proximal left femur . Bilateral hip and SI joint spaces are preserved. Soft tissues are unremarkable. Impression: No acute abnormality. Prior ORIF for the left femur, unchanged. Reviewed, dictated and finalized at location . LOP CUTTER Impression: No acute abnormality. Prior ORIF for the left femur, unchanged.
--- NOTE | ~2024-09-11 | CT_ITS ---
EXAMINATION: CT cervical spine wo con DATE: 09/11/2024 12:29 INDICATION: Fall with head injury TECHNIQUE: Computed tomography (CT) of the cervical spine was performed without intravenous contrast. Automated exposure control and iterative reconstruction technique were employed. The dose-length pro duct was 195.28 mGy-cm. COMPARISON: None FINDINGS: Alignment is normal. Vertebral body heights are normal. No acute fracture. There is fusion across the bilateral facet and uncovertebral joints at C3-C4 and across the right-sided facet and uncovertebral joints at C4-C5. Mild disc height loss at C2-C3, C5-C6, C7-T1 and T1-T2 and moderate disc height los s at C3-C4 and C4-C5. Disc bulge resulting in mild central canal stenosis at C2-C3. Severe uncoverteb ral osteoarthritis on the left at C2-C3. Otherwise mild to moderate osteoarthritis the remaining cerv ical facet joints. Severe facet osteoarthritis bilaterally at C7-T1 and on the left at C2-C3 and C6-C 7. Mild to moderate osteoarthritis the remaining facet joints. Moderate neural foraminal stenosis on the right at C3-C4 and on the left at C6-C7. Atherosclerotic calcifications at the bilateral carotid bulbs. Cervical soft tissues are otherwise unremarkable. Moderate paraseptal emphysema at the SI join ts apices of the lungs. IMPRESSION: 1. Moderate cervical spondylosis including anterior and posterior fusion at C3-C4 and on the right at C4-C5. No acute osseous abnormality. Reviewed, dictated and finalized at location A. NEL DIRECTOR IMPRESSION: 1. Moderate cervical spondylosis including anterior and posterior fusion at C3- C4 and on the right at C4-C5. No acute osseous abnormality.
[2024-09-11 11:19] VITALS: BP 137/78; PULSE 63; RESP 16; TEMP 36.9; O2SAT 99
[2024-09-11 11:28] VITALS: BP 134/84; PULSE 62; RESP 16; TEMP 36.7; O2SAT 100
--- NOTE | 2024-09-11 12:06 | ED_ITS ---
HPI - Fall General Chief Complaint: Fall <JUDITH Vega Last Filed: 09/11/24 19:08> Stated Complaint: Fall <JUDITH Vega Last Filed: 09/11/24 19:08> Time Seen by Provider: 09/11/24 11:13 <JUDITH Vega Last Filed: 09/11/24 19:08> Source: patient <JUDITH Vega Last Filed: 09/11/24 19:08> Mode of arrival: EMS <JUDITH Vega Last Filed: 09/11/24 19:08> Limitations: no limitations <JUDITH Vega Last Filed: 09/11/24 19:08> History of Present Illness HPI Narrative: Patient is a 73-year-old male, with PMH of dementia, CVA, who presents the ED via EMS with report of a fall. Patient is resident of [facility]. Patient reports he slipped and fell out of bed this morning. His bed is approximately 10 inches off the ground per records. C/o pain to his L hip. Sent here for further evaluation. Reports previous L hip surgery. Is able to move the leg without significant pain. He did hit his head against a nearby lamp, denied LOC. Denies neck or back pain. Denies abdominal pain. Denies numbness, bowel or bladder incontinence. Patient was recently seen our facility after another fall, diagnosed with a T12 compression fracture. Currently has TLSO brace on. Denies back pain at this time. <Cherry Finney PA-C - Last Filed: 09/11/24 19:08> Related Data Home Medications: Home Medications ?Medication ?Instructions ?Recorded ?Confirmed ?Last Taken ?Type escitalopram oxalate 10 mg tablet 10 mg PO HS 07/19/24 08/05/24 07/17/24 History <JUDITH Vega Last Filed: 09/11/24 19:08> Allergies/Adverse Reactions: Allergies Allergy/AdvReac Type Severity Reaction Status Date / Time Penicillins Allergy Unknown Rash Verified 09/11/24 11:23 <Cherry Finney PA-C - Last Filed: 09/11/24 19:08> Review of Systems Review of Systems: All systems reviewed & are unremarkable except as noted in HPI. <Cherry Finney PA-C - Last Filed: 09/11/24 19:08> All systems reviewed & are unremarkable except as noted in HPI and below <Cherry Finney PA-C - Last Filed: 09/11/24 19:08> [facility] Past Medical History Medical History: Medical History Dementia of Alzheimer's type with behavioral disturbance Anterior communicating artery aneurysm History of stroke with current residual effects Status post CVA Dizziness Type 2 diabetes mellitus without complications Hypothyroidism <Cherry Finney PA-C - Last Filed: 09/11/24 19:08> Surgical History Surgical History: Surgical History Hx of fracture of left hip s/p ORIF H/O cataract extraction <Cherry Finney PA-C - Last Filed: 09/11/24 19:08> Family History Family History: Family History Father Family history of lung cancer Family history of congestive heart failure <Cherry Finney PA-C - Last Filed: 09/11/24 19:08> Social History Social History: Social History Years smoked: 20 Smoking status: Current every day smoker Tobacco type: cigarettes Second hand tobacco smoke exposure: No Alcohol intake: never Substance use: never Substance use type: does not use Do You Feel Safe in your Home?: Yes Lack of Transportation: No Lack of Food: Never True Current Housing: I Have Housing Concerned About Future Housing: No Difficulty Paying Gas/Electric Bills: No Difficulty Paying for Meds: No Currently Unemployed: No Education: Trade/Vocational Certificate Difficulty w/ Childcare or Family Care: No Living arrangements: with family Occupation/Education: retired Gender identity (if verbalized by the patient): Male Spiritual care concerns: No <Cherry Finney PA-C - Last Filed: 09/11/24 19:08> Exam Narrative: GENERAL: Elderly but well appearing, well-nourished, non-toxic, in no acute distress. HEAD: Normocephalic, atraumatic. EYES: PERRL/EOMI, conjunctiva clear RESPIRATORY: Airway patent, respirations nonlabored. Clear to auscultation bilaterally, no rales, rhonchi, wheezing. CARDIOVASCULAR: Regular rate and rhythm without murmurs, rubs, or gallops. MUSCULOSKELETAL: Moves all extremities. No gross deformities. No significant tenderness throughout pelvis/L hip joint. Full ROM of L hip/LLE. TLSO brace in place. SKIN: Warm, dry, normal color. NEURO: A&O X3. Speech clear. Cranial nerves II-XII grossly intact. Steady gait. No ataxic movements. No focal deficits. PSYCHIATRIC: Appropriate mood and affect. Normal interaction. <Cherry Finney PA-C - Last Filed: 09/11/24 19:08> Course LINE UP EXAMINER/PA Physician Supervision For this patient encounter, I reviewed the LINE UP EXAMINER or PA documentation, treatment plan, and medical decision making; and I had [id number] time with this patient. <Sam Rose MD - Last Filed: 09/11/24 20:23> Vital Signs Vital signs: Vital Signs Temperature 98.4 F 09/11/24 11:19 Pulse Rate 63 09/11/24 11:19 Respiratory Rate 16 09/11/24 11:19 Blood Pressure 137/78 09/11/24 11:19 Pulse Oximetry 99 09/11/24 11:19 Temperature 97.8 F 09/11/24 13:11 Pulse Rate 67 09/11/24 13:11 Respiratory Rate 18 09/11/24 13:11 Blood Pressure 137/87 09/11/24 13:11 Pulse Oximetry 96 09/11/24 13:11 <Cherry Finney PA-C - Last Filed: 09/11/24 19:08> Vital Signs Temperature 98.4 F 09/11/24 11:19 Pulse Rate 63 09/11/24 11:19 Respiratory Rate 16 09/11/24 11:19 Blood Pressure 137/78 09/11/24 11:19 Pulse Oximetry 99 09/11/24 11:19 Temperature 97.8 F 09/11/24 13:11 Pulse Rate 67 09/11/24 13:11 Respiratory Rate 18 09/11/24 13:11 Blood Pressure 137/87 09/11/24 13:11 Pulse Oximetry 96 09/11/24 13:11 <Sam Rose MD - Last Filed: 09/11/24 20:23> MDM - Fall MDM Narrative Medical decision making narrative: Patient Presented to ED from local facility with report of fall out of bed, complaining of left hip pain. Did hit his head. Denied LOC. Vital signs are stable. Patient in no acute distress. Is not on any anticoagulation. X-ray of left hip negative. Stable ORIF. CT cervical spine negative. Showing stable previous surgical changes. CT brain imaging showing intraparenchymal hemorrhage of right frontal lobe. No mass effect. Patient and family updated on imaging findings and need for transfer. He is neurovascularly intact. No focal deficits appreciated on exam. Able to answer all questions. Responding appropriately. Moves all extremities. Discussed case with Dr. Kirk, EDP @ [facility], accepted patient for transfer. Patient and family in agreement with plan and need for transfer for further care. <Cherry Finney PA-C - Last Filed: 09/11/24 19:08> Medical Records Attestation: I reviewed the patient's medical records. <Cherry Finney PA-C - Last Filed: 09/11/24 19:08> Imaging Data Attestation: I personally reviewed and interpreted this imaging study as follows: <Cherry Finney PA-C - Last Filed: 09/11/24 19:08> Radiologist's impression: ITS Impressions Hip/Pelvis X-Ray 09/11/24 12:14 Impression: No acute abnormality. Prior ORIF for the left femur, unchanged. Head CT 09/11/24 12:50 IMPRESSION: 1. Small intraparenchymal hemorrhage in the right frontal lobe. Dr. Gutiérrez discussed these findings with Dr. Finney at 12:53 PM. 2. Age-related changes including mild diffuse volume loss and extensive scattered white matter hypoattenuation consistent with chronic small vessel ischemic disease. Cervical Spine CT 09/11/24 13:27 IMPRESSION: 1. Moderate cervical spondylosis including anterior and posterior fusion at C3- C4 and on the right at C4-C5. No acute osseous abnormality. <Cherry Finney PA-C - Last Filed: 09/11/24 19:08> Discharge Plan Discharge Clinical Impression: Intraparenchymal hemorrhage of brain Accidental fall from bed Qualifiers: Encounter type: initial encounter Qualified Code(s): W06.XXXA - Fall from bed, initial encounter Strain of left hip Qualifiers: Encounter type: initial encounter Qualified Code(s): S76.012A - Strain of muscle, fascia and tendon of left hip, initial encounter <JUDITH Vega Last Filed: 09/11/24 19:08> Patient Disposition: Acute Care Hospital <Cherry Finney PA-C - Last Filed: 09/11/24 19:08> Condition: Serious <Cherry Finney PA-C - Last Filed: 09/11/24 19:08> Patient Language: Malaysian <JUDITH Vega Last Filed: 09/11/24 19:08> Prescriptions: No Action escitalopram oxalate 10 mg tablet 10 mg PO HS pravastatin 40 mg tablet 40 mg PO DAILY Qty: 90 2RF levothyroxine [Synthroid] 75 mcg tablet 75 mcg PO DAILY Qty: 90 2RF buspirone 5 mg tablet 5 mg PO BID Qty: 180 1RF tramadol 50 mg tablet 50 mg PO Q6H PRN (Reason: pain) Qty: 30 0RF <Cherry Finney PA-C - Last Filed: 09/11/24 19:08> Follow-up/Referrals: Louis Sena MD [Primary Care Provider] - <Cherry Finney PA-C - Last Filed: 09/11/24 19:08>
[2024-09-11 13:11] VITALS: BP 137/87; PULSE 67; RESP 18; TEMP 36.6; O2SAT 96
== END 2024-09-11 15:05 | disposition short-term general hospital (02) ==
PROVIDERS: Emergency Provider Physician Assistant; PCP Family Medicine
DX: S76.012A Strain of muscle, fascia and tendon of left hip, initial encounter (principal); I61.8 Other nontraumatic intracerebral hemorrhage; F17.210 Nicotine dependence, cigarettes, uncomplicated; G30.9 Alzheimer's disease, unspecified; F02.80 Dementia in other diseases classified elsewhere, unspecified severity, without behavioral disturbance, psychotic disturbance, mood disturbance, and anxiety; E11.9 Type 2 diabetes mellitus without complications; E03.9 Hypothyroidism, unspecified; W06.XXXA Fall from bed, initial encounter
CPT/HCPCS: 70450; 72125; 73502; 99284

== ENCOUNTER 2024-10-07 13:32 | Emergency (ER) | payer MEDICARE, SELFPAY ==
--- NOTE | ~2024-10-07 | CT_ITS ---
EXAMINATION: CT chest abdomen pelvis w con DATE: 10/07/2024 17:08 INDICATION: Chest pain. Upper abdominal pain. TECHNIQUE: Computed tomography (CT) of the chest, abdomen, and pelvis was performed with 100 mL Omnip aque 350 intravenous contrast. Automated exposure control and iterative reconstruction technique were employed. The dose-length product was 799.99 mGy-cm. COMPARISON: Chest CT 09/04/2024, CT abdomen and pelvis 07/18/2024 FINDINGS: CHEST CT: There is moderate emphysema. There is mild atelectasis bilaterally. Calcified pulmonary nodules and c alcified hilar and mediastinal lymph nodes are consistent with old granulomatous disease. No pleural effusion. The heart size is normal. There are coronary artery calcifications. No pericardial effusion . There is a healing burst fracture of T12 with 3/5 loss of height. There is a healing fracture of le ft 10th rib. ABDOMEN/PELVIS CT: The liver and gallbladder are normal. Calcifications in the spleen are consistent with old granulomat ous disease. The pancreas and adrenal glands are normal. There are cysts in the kidneys measuring up to 9.7 cm on the right. The prostate is severely enlarged. There are no dilated loops of bowel. There are no dilated loops of bowel. The appendix is normal. There is calcified atherosclerosis of the aor ta and many of the other arteries. There are no pathologically enlarged lymph nodes. There is no free intraperitoneal fluid. There is a healed fracture of left femoral neck with internal fixation. There is a chronic compression fracture of L2. There is severe lower lumbar spondylosis. IMPRESSION: 1. Moderate emphysema. 2. Healing burst fracture of T12 with worsened height loss from 09/04/2024. 3. Healing left 10th rib fracture. Reviewed, dictated and finalized at location A. L COURT JUSTICE
[2024-10-07 13:39] VITALS: BP 123/92; PULSE 83; RESP 16; TEMP 36.1; O2SAT 98
--- NOTE | 2024-10-07 16:05 | ED.GENADULT ---
HPI - General Adult General Chief complaint: Unspecified Stated complaint: lower abd pain with coughing Time Seen by Provider: 10/07/24 16:05 Source: patient Mode of arrival: ambulatory Limitations: no limitations History of Present Illness HPI narrative: 73 YEARS OLD PATIENT CAME FROM [facility]WAY BY AMBULANCE BECAUSE WAS COUGHING TODAY AND START HOLDING A CHEST AND CRYING. PATIENT'S IS TELLING ME THAT PATIENT HAD SOME DISCOMFORT AT THE RIGHT LOWER QUADRANT TODAY. THERE IS NO FEVER, CHILLS, NAUSEA, VOMITING, DIARRHEA, CONSTIPATION OR SHORTNESS OF BREATH. PATIENT HAD HISTORY OF FRACTURE RIBS AND FRACTURE VERTEBRA RECENTLY. IN THE ED PATIENT LOOKS COMFORTABLE, DENYING ANY PAIN. Related Data Home Medications ?Medication ?Instructions ?Recorded ?Confirmed ?Last Taken ?Type escitalopram oxalate 10 mg tablet 10 mg PO HS 07/19/24 08/05/24 07/17/24 History Allergies Allergy/AdvReac Type Severity Reaction Status Date / Time Penicillins Allergy Unknown Rash Verified 09/11/24 11:23 Review of Systems Review of Systems: All systems reviewed & are unremarkable except as noted in HPI and below PMFSH Past Medical History Medical History Dementia of Alzheimer's type with behavioral disturbance Anterior communicating artery aneurysm History of stroke with current residual effects Status post CVA Dizziness Type 2 diabetes mellitus without complications Hypothyroidism Surgical History Surgical History Hx of fracture of left hip s/p ORIF H/O cataract extraction Family History Family History Father Family history of lung cancer Family history of congestive heart failure Social History Social History Years smoked: 20 Smoking status: Current every day smoker Tobacco type: cigarettes Second hand tobacco smoke exposure: No Alcohol intake: never Substance use: never Substance use type: does not use Do You Feel Safe in your Home?: Yes Lack of Transportation: No Lack of Food: Never True Current Housing: I Have Housing Concerned About Future Housing: No Difficulty Paying Gas/Electric Bills: No Difficulty Paying for Meds: No Currently Unemployed: No Education: Trade/Vocational Certificate Difficulty w/ Childcare or Family Care: No Living arrangements: with family Occupation/Education: retired Gender identity (if verbalized by the patient): Male Spiritual care concerns: No Exam Narrative: GENERAL APPEARANCE: WELL-DEVELOPED, WELL-NOURISHED, DOES NOT LOOK IN PAIN OR DISTRESS SKIN: NORMAL COLOR HEAD: NORMOCEPHALIC, NONTRAUMATIC EYES: CLEAR CONJUNCTIVA ENT: OROPHARYNX NORMAL, EARS NORMAL, NOSE NORMAL NECK: SUPPLE, NONTENDER CHEST AND RESPIRATORY: AIRWAY PATENT, NO RESPIRATORY DISTRESS, NO ACCESSORY MUSCLE USE HEART: REGULAR RATE/RHYTHM ABDOMEN: SOFT, NONTENDER, NO ORGANOMEGALY, QUIET BOWEL SOUNDS VASCULAR: NORMAL PERIPHERAL PULSES, NORMAL CAPILLARY REFILL. MUSCULOSKELETAL: NORMAL RANGE OF MOTION, NONTENDER BACK NEUROLOGIC: ALERT ORIENTED TO HIS NAME ONLY Course Vital Signs Vital signs: Vital Signs Temperature 36.1 C L 10/07/24 13:39 Pulse Rate 83 10/07/24 13:39 Respiratory Rate 16 10/07/24 13:39 Blood Pressure 123/92 H 10/07/24 13:39 Pulse Oximetry 98 10/07/24 13:39 Oxygen Delivery Room Air 10/07/24 13:39 Temperature 36.1 C L 10/07/24 13:39 Pulse Rate 83 10/07/24 13:39 Respiratory Rate 16 10/07/24 13:39 Blood Pressure 123/92 H 10/07/24 13:39 Pulse Oximetry 98 10/07/24 13:39 Oxygen Delivery Room Air 10/07/24 13:39 Medical Decision Making [facility] Narrative Medical decision making narrative: PATIENT CAME WITH CHEST PAIN DURING COUGHING AND RIGHT LOWER QUADRANT PAIN STARTED EARLY THIS MORNING. HISTORY OF DEMENTIA, AT THE BEDSIDE VITAL SIGNS ARE STABLE PHYSICAL EXAMINATION ABOVE DIFFERENTIAL DIAGNOSIS CHEST WALL PAIN, DIVERTICULITIS, COLITIS, URINARY TRACT INFECTION, CONSTIPATION BLOOD WORKUP TODAY INCLUDES CBC, CMP, LIPASE, SHOWED INSIGNIFICANT ABNORMALITY URINALYSIS SHOWED NO SIGN OF INFECTION CT CHEST ABDOMEN AND PELVIS WITH IV CONTRAST SHOWED 1. Moderate emphysema. 2. Healing burst fracture of T12 with worsened height loss from 09/04/2024. 3. Healing left 10th rib fracture PATIENT HAS BEEN ASYMPTOMATIC SINCE ARRIVAL TO THE ED UNTIL THE TIME OF DISCHARGE. CHEST PAIN HIGH LIKELY SECONDARY TO CHEST WALL PAIN DURING COUGHING, THERE IS NO ETIOLOGY FOR PATIENT ABDOMINAL PAIN AT THIS TIME, PATIENT HAVE DEMENTIA DIFFICULT TO GET CLEAR HISTORY. DISCHARGE BACK TO HALF-WAY TO CONTINUE HOME MEDICATIONS. Differential Diagnosis Differential Diagnosis: ABOVE Vital Signs Vital Signs: Vital Signs Temperature 36.1 C L 10/07/24 13:39 Pulse Rate 83 10/07/24 13:39 Respiratory Rate 16 10/07/24 13:39 Blood Pressure 123/92 H 10/07/24 13:39 Pulse Oximetry 98 10/07/24 13:39 Oxygen Delivery Room Air 10/07/24 13:39 Temperature 36.1 C L 10/07/24 13:39 Pulse Rate 83 10/07/24 13:39 Respiratory Rate 16 10/07/24 13:39 Blood Pressure 123/92 H 10/07/24 13:39 Pulse Oximetry 98 10/07/24 13:39 Oxygen Delivery Room Air 10/07/24 13:39 Lab Data 10/07/24 16:18 10/07/24 17:01 Labs: Lab Results 10/07/24 10/07/24 10/07/24 Range/Units 16:18 17:01 18:22 WBC 5.9 (4.5-10.0) K/mm3 RBC 4.84 (4.6-6.20) M/mm3 Hgb 15.1 (14.0-18.0) g/dL Hct 45.7 (42.0-52.0) % MCV 94.4 (80-100) fl MCH 31.2 (26-34) pg MCHC 33.0 (32-36) g/dl RDW 15.3 H (11.5-14.5) % Plt Count 151 (150-375) k/mm3 MPV 9.9 (7.4-10.4) fl Immature Gran % (Auto) 0.3 (0-0.5) % Neut % (Auto) 60.3 (45.5-73.1) % Lymph % (Auto) 24.1 (18.3-44.2) % [place] % (Auto) 12.3 H (2.6-8.5) % Eos % (Auto) 2.1 (0-4.4) % Baso % (Auto) 0.9 (0.2-1.2) % Lymph # (Auto) 1.41 (0.9-3.2) K/mm3 [place] # (Auto) 0.7 H (0.1-0.6) K/mm3 Eos # (Auto) 0.1 (0-0.3) K/mm3 Baso # (Auto) 0.1 (0.0-0.1) K/mm3 Abs Immat Gran (auto) 0.02 (0.00-0.031) K/mm3 Absolute Neuts (auto) 3.5 (1.3-6.7) K/mm3 Absolute Nucleated RBC 0.000 (0.0-0.012) K/mm3 Nucleated RBC % 0.0 (0.0-0.2) % PT 14.6 (11.1-14.7) Seconds INR 1.1 APTT 26.9 (22.3-36.8) Seconds Sodium 135 L (137-145) mmol/L Potassium 4.4 (3.4-5.0) mmol/L Chloride 105 (98-107) mmol/L Carbon Dioxide 26 (22-30) mmol/L Anion Gap 4 (4-12) mmol/L BUN 14 D (9-20) mg/dL Creatinine 0.67 L 0.80 (0.7-1.3) mg/dL Estim Creat Clear Calc 69 59 ml/min Estimated GFR > 60 > 60 (59 - ) Glucose 102 (65-110) mg/dL Calcium 8.3 L (8.4-10.2) mg/dL Total Bilirubin 0.6 (0.2-1.3) mg/dL AST 31 (17-59) U/L ALT 34 (6-50) U/L Alkaline Phosphatase 83 (38-126) U/L Troponin I < 0.012 (0.000-0.034) ng/mL Total Protein 6.0 L (6.3-8.2) g/dL Albumin 3.6 (3.5-5.1) g/dL Lipase 129 (23-300) U/L Urine Color Yellow (Yellow) Urine Appearance Clear (Clear) Urine pH 7.0 (5.0-9.0) Ur Specific [place] 1.015 (1.001-1.035) Urine Protein Negative (Negative) mg/dL Urine Glucose (UA) 1+ H (Negative) mg/dL Urine Ketones Negative (Negative) mg/dL Ur Blood (Man) Negative (Negative) Urine Nitrate Negative (Negative) Urine Bilirubin Negative (Negative) Urine Urobilinogen 0.2 (<2.0) mg/dL Leukocyte Esterase Rfl Negative (Negative) RICHARD/UL Imaging Data Radiologist's impression: Impressions Chest/Abdomen/Pelvis CT 10/07/24 17:15 IMPRESSION: 1. Moderate emphysema. 2. Healing burst fracture of T12 with worsened height loss from 09/04/2024. 3. Healing left 10th rib fracture. Critical Care Time Critical Care Time Critical Care Time: No Discharge Plan Discharge Clinical Impression: Chest wall pain Patient Disposition: NH Intermediate/Asst Living Condition: Improved Instructions: Chest Wall Pain (ED) Additional Instructions: RETURN IF SYMPTOMS ARE WORSENING , CALL YOUR FAMILY PHYSICIAN FOR APPOINTMENT, TAKE TYLENOL NEEDED FOR ACHES AND PAIN, CONTINUE HOME MEDICATIONS. Patient Language: Jamaican Prescriptions: No Action escitalopram oxalate 10 mg tablet 10 mg PO HS pravastatin 40 mg tablet 40 mg PO DAILY Qty: 90 2RF levothyroxine [Synthroid] 75 mcg tablet 75 mcg PO DAILY Qty: 90 2RF buspirone 5 mg tablet 5 mg PO BID Qty: 180 1RF tramadol 50 mg tablet 50 mg PO Q6H PRN (Reason: pain) Qty: 30 0RF Follow-up/Referrals: Louis Sena MD [Primary Care Provider] -
--- NOTE | 2024-10-07 16:06 | ECG_ITS ---
Test Date: 2024-10-07 16:24:34 Measurements Intervals [place] Rate: 70 P: 98 VT: 152 QRS: -34 QRSD: 113 T: 99 QT: 392 QTc: 423 Interpretive Statements SINUS RHYTHM WITH OCCASIONAL VENTRICULAR PREMATURE COMPLEXES MARKED LEFT AXIS DEVIATION [QRS AXIS < -30] LOW QRS VOLTAGE IN PRECORDIAL LEADS [QRS DEFLECTION < 1.0 mV IN CHEST LEADS] PROBABLE ANTEROSEPTAL MYOCARDIAL INFARCTION , OF INDETERMINATE AGE [35 ms Q WAVE IN V1-V4] Compared to ECG 07/19/2024 08:14:39 Ventricular premature complex(es) now present Myocardial infarct finding now present Electronically Signed On 10-08-2024 14:15:52 [employer] by Carly Martinez M.D.
[2024-10-07 16:42] LABS: Basophils Absolute Auto 0.1 K/mm3 (0.0-0.1); Basophils Percent Auto 0.9 % (0.2-1.2); Eosinophils Absolute Auto 0.1 K/mm3 (0-0.3); Eosinophils Percent Auto 2.1 % (0-4.4); Hematocrit 45.7 % (42.0-52.0); Hemoglobin 15.1 g/dL (14.0-18.0); Immature Granulocyte Absolute 0.02 K/mm3 (0.00-0.031); Immature Granulocyte Percent A 0.3 % (0-0.5); Lymphocytes Absolute Auto 1.41 K/mm3 (0.9-3.2); Lymphocytes Percent Auto 24.1 % (18.3-44.2); Mean Corpuscular Hemoglobin 31.2 pg (26-34); Mean Corpuscular Volume 94.4 fl (80-100); Mean Platelet Volume 9.9 fl (7.4-10.4); Monocytes Absolute Auto 0.7 K/mm3 (0.1-0.6); Monocytes Percent Auto 12.3 % (2.6-8.5); Neutrophils Absolute Auto 3.5 K/mm3 (1.3-6.7); Neutrophils Percent Auto 60.3 % (45.5-73.1); Platelet Count Result 151 k/mm3 (150-375); Red Blood Count 4.84 M/mm3 (4.6-6.20); Red Cell Distribution Width 15.3 % (11.5-14.5); White Blood Count 5.9 K/mm3 (4.5-10.0)
[2024-10-07 16:56] LABS: INR 1.1; Partial Thromboplastin Time 26.9 Seconds (22.3-36.8); Prothrombin Time 14.6 Seconds (11.1-14.7)
[2024-10-07 17:03] LABS: Estimated CRCL calculation 59 ml/min; Estimated Glomerular Filt Rate > 60
[2024-10-07 17:06] LABS: Alanine Aminotransferase 34 U/L (6-50); Albumin Level 3.6 g/dL (3.5-5.1); Alkaline Phosphatase 83 U/L (38-126); Anion Gap 4 mmol/L (4-12); Aspartate Amino Transferase 31 U/L (17-59); Bilirubin,Total 0.6 mg/dL (0.2-1.3); Blood Urea Nitrogen 14 mg/dL (9-20); Calcium 8.3 mg/dL (8.4-10.2); Carbon Dioxide 26 mmol/L (22-30); Chloride 105 mmol/L (98-107); Estimated CRCL calculation 69 ml/min; Estimated Glomerular Filt Rate > 60; Glucose 102 mg/dL (65-110); Lipase 129 U/L (23-300); Potassium 4.4 mmol/L (3.4-5.0); Sodium 135 mmol/L (137-145)
[2024-10-07 17:18] LABS: Troponin I < 0.012 ng/mL (0.000-0.034)
[2024-10-07 18:33] LABS: Add Urine Microscopic? NO; Appearance Urine Clear (Clear); Bilirubin Urine Negative (Negative); Blood Urine Negative (Negative); Color Urine Yellow (Yellow); Glucose Urine UA 1+ mg/dL (Negative); Ketones Urine Negative (Negative); Leukocyte Esterase Ur Negative LEU/UL (Negative); Nitrate Urine Negative (Negative); Protein Urine Negative (Negative); Specific Grav Ur 1.015 (1.001-1.035); Urobilinogen Urine 0.2 mg/dL (<2.0)
[2024-10-07 18:53] VITALS: BP 120/86; PULSE 80; RESP 16; TEMP 36.4; O2SAT 98
== END 2024-10-07 22:37 ==
PROVIDERS: Emergency Provider Emergency Medicine; PCP Family Medicine
DX: R07.89 Other chest pain (principal); G30.9 Alzheimer's disease, unspecified; F02.80 Dementia in other diseases classified elsewhere, unspecified severity, without behavioral disturbance, psychotic disturbance, mood disturbance, and anxiety; E11.9 Type 2 diabetes mellitus without complications; E03.9 Hypothyroidism, unspecified
CPT/HCPCS: 36415; 71260; 74177; 80053; 81003; 83690; 84484; 85025; 85610; 85730; 93005; 99284; Q9967